=== PATIENT | female | born 1960 | race Caucasian/White ===

== ENCOUNTER → 2017-10-18 12:53 | Outpatient (CLI) | payer BC, SELFPAY ==
--- NOTE | 2017-10-18 12:57 | XR_ITS ---
DEXA SCAN.-BONE DENSITY STUDY HIPS AND LUMBAR SPINE HISTORY: Postmenopausal female postmenopausal female bilateral ovaries removed. HISTORY of fracture taking calcium and vitamin D.. Diabetes. Obesity. Hypertension. GERD. TECHNIQUE: DEXA scan hip and lumbar spine The most complete data summary and color graphic presentation of the today's ( and any prior ) DEXA findings are available in PACS. Definition and treatment guidelines included. COMPARISON: None listed LUMBAR SPINE: Normal bone density. 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 . HIPS: Femoral neck density is best predictor of hip fracture risk . Left hip demonstrates the lowest T score -0.2 with BMD1.013 g/cm sq . Right hip T score 0.1 with BMD 1.05 Averaging all regions yields today's Hip Mean T score = 0.5 with BMD1.065 g/cm sq .. IMPRESSION 1. LUMBAR SPINE: Overall normal bone density. With Normal bone density at all the vertebral body levels 2. HIPS:. Overall Normal bone density with mean T score = 0.5 Normal bone density of both right and left femoral neck WHO criteria for post-menopausal, Women: Normal: T-score at or above -1 SD Osteopenia: T-score between -1 and -2.5 SD Osteoporosis: T-score at or below -2.5 SD
== END ==
PROVIDERS: Family Provider Family Medicine; PCP Nurse Practitioner; Visit Provider Family Medicine
DX: Z78.0 Asymptomatic menopausal state (principal)
CPT/HCPCS: 77080

== ENCOUNTER → 2017-12-26 10:13 | Outpatient (POV) | payer BC, SELFPAY | PROVIDERS: Family Provider Family Medicine; PCP Nurse Practitioner; Visit Provider Dermatology | DX: Z00.00 Encounter for general adult medical examination without abnormal findings (principal) ==

== ENCOUNTER → 2018-01-02 09:05 | Outpatient (CLI) | payer BC, SELFPAY ==
--- NOTE | 2018-01-02 09:07 | MM_ITS ---
MM Dig screening mamm BI w/CAD CAD Screening COMPARISON: Digital mammograms with CAD 11/22/2016 and 11/16/2015 INDICATION: There is no personal or family history of breast cancer TECHNIQUE: Standard CC and MLO images were obtained. R2 CAD reviewed. FINDINGS: The breasts are composed primarily of fat with minimal scattered fibro glandular densities in each breast. There are stable benign-appearing nodular density upper outer quadrant right breast. There is a mole marker on each breast. There are few tiny benign-appearing calcination is in each breast. There is no suspicious lesion and there are no suspicious microcalcifications. IMPRESSION: Fatty type breast parenchyma with no suspicious lesion seen BI-RADS Category: 2 Benign Finding(s) RECOMMENDED FOLLOW-UP: 1YR - 1 YEAR FOLLOW-UP (A letter has been sent to the patient regarding results of the study.)
== END ==
PROVIDERS: Family Provider Family Medicine; PCP Family Medicine; Visit Provider Nurse Practitioner Obstetrics & Gynecology
DX: Z12.31 Encounter for screening mammogram for malignant neoplasm of breast (principal)
CPT/HCPCS: 77067

== ENCOUNTER → 2018-03-26 11:53 | Outpatient (CLI) | payer BC, SELFPAY ==
[2018-03-26 11:57] LABS: Adenovirus F 40/41, stool Not Detected (NotDetected); Astrovirus Not Detected (NotDetected); Campylobacter Not Detected (NotDetected); Clostridium Difficile A/B, PCR Not Detected (NotDetected); Cryptosporidium Not Detected (NotDetected); Cyclospora Cayetanesis Not Detected (NotDetected); Entamoeba histolytica Not Detected (NotDetected); Enteroaggregative E coli Not Detected (NotDetected); Enteropathogenic E coli Not Detected (NotDetected); Enterotoxigenic E coli Not Detected (NotDetected); Giardia lamblia Not Detected (NotDetected); Norovirus Not Detected (NotDetected); Plesimonas Shigalloides, PCR Not Detected (NotDetected); Rotavirus A Not Detected (NotDetected); Salmonella, PCR Not Detected (NotDetected); Sapovirus Not Detected (NotDetected); Shiga-like toxin E coli Not Detected (NotDetected); Shigella Enterovasive E coli Not Detected (NotDetected); Vibrio Cholerae Not Detected (NotDetected); Vibrio, PCR Not Detected (NotDetected); Yersinia Entercolitica, PCR Not Detected (NotDetected)
== END ==
PROVIDERS: PCP Nurse Practitioner; Visit Provider Nurse Practitioner
DX: R19.7 Diarrhea, unspecified (principal)
CPT/HCPCS: 87507

== ENCOUNTER → 2018-05-05 08:48 | Outpatient (CLI) | payer BC, SELFPAY ==
--- NOTE | 2018-05-05 08:54 | CT_ITS ---
CT sinus wo con CLINICAL INDICATION: ITS.REASON: CHRONIC SINUSITIS ORDERING PHYSICIAN: Jose Manuel Rae MD PATIENT AGE: 58 years COMPARISON: None TECHNIQUE:Axial images obtained with sagittal and coronal reformats. All CT scans at the facility use one or more dose reduction, viz: automated exposure control, ma/kV adjustment per patient size (including targeted exams where dose is matched to indication, i.e. head), or iterative reconstruction technique. FINDINGS: There is minimal mucosal thickening of the maxillary sinuses. No sinus air-fluid level or mass evident. Frontal, ethmoid, and sphenoid sinuses have an unremarkable appearance. No mastoid effusion. The middle ears are well aerated. Small nodes are present in the neck. The TMJs have an unremarkable appearance as do the orbits, parotid glands, and submandibular glands. No significant nasal septal deviation IMPRESSION: 1. No evidence of acute sinusitis. 2. Minimal maxillary mucosal thickening
--- NOTE | 2018-05-05 08:54 | XR_ITS ---
XR hip LT 2-3V w/pelvis HISTORY: ITS.REASON: LEFT HIP PAIN ORDERING PHYSICIAN: Jose Manuel Rae MD PATIENT AGE: 58 years COMPARISON: None FINDINGS: There are minimal osteoarthritic changes of the left hip with slight decrease in joint space medially and minimal osteophyte formation along the inferior acetabulum. No fracture or dislocation. No lytic or blastic change. There is sclerosis of the symphysis pubis suggesting osteitis pubis. IMPRESSION: 1. Minimal osteoarthritic change of the left hip. 2. Osteitis pubis
== END ==
PROVIDERS: PCP Family Medicine; Visit Provider Family Medicine
DX: J32.0 Chronic maxillary sinusitis (principal); M25.552 Pain in left hip
CPT/HCPCS: 70486; 73502

== ENCOUNTER → 2018-05-13 10:10 | Outpatient (POV) | payer BC, SELFPAY | PROVIDERS: Visit Provider Otolaryngology | DX: Z00.00 Encounter for general adult medical examination without abnormal findings (principal) ==

== ENCOUNTER → 2018-07-08 09:59 | Outpatient (POV) | payer BC, SELFPAY | PROVIDERS: Visit Provider Otolaryngology | DX: Z00.00 Encounter for general adult medical examination without abnormal findings (principal) ==

== ENCOUNTER → 2018-11-24 07:04 | Outpatient (CLI) | payer BC, SELFPAY ==
--- NOTE | 2018-11-24 07:10 | NM_ITS ---
SPECT MYOCARDIAL PERFUSION SCAN, REST AND STRESS: EXERCISE STRESS: [facility] REVIEW QGS EF AND WALL MOTION EVALUATION: QPS - PERFUSION EVALUATION: HISTORY: Chest pain, SOB, Fatigue, HTN, DM, Family history PROCEDURE: Rest imaging performed after administration of10:44 millicuries Tc MIBI. Dose administered at 7:15 a.m., with imaging thereafter. Stress imaging was then performed following6 minutes 08 seconds of exercise stress. The patient achieved a heart [id number] with projected heart rate of138 . Resting BP120/68 with stress 160/78. At maximum exercise stress,29.1 millicuries Tc MIBI administered at9:00 a.m. with [id number] minutes thereafter. FINDINGS: Perfusion Evaluation: The single slice spect images as well as the [facility] bull's-eye data summary were reviewed. Wall Motion and Ejection Fraction Evaluation: Gated SPECT review and analysis used to evaluate these features. There is a 74 % left ventricular ejection fraction. There seems to be good wall motion Uniform myocardial activity at both stress and rest IMPRESSION: No scintigraphic evidence of exercise-induced myocardial ischemia with normal ejection fraction normal wall motion
--- NOTE | 2018-11-24 07:25 | HMH.ITSHM ---
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 []OMEPRAZOLE LOSARTAN HCTZ GLIMIPIRIDE METFORMIN IDOLAC METHOCARBOMAL PRAVASTATIN DULOXETINE OZIMPIC VITAMINS
== END ==
PROVIDERS: PCP Family Medicine; Visit Provider Family Medicine
DX: R06.02 Shortness of breath (principal); Z82.49 Family history of ischemic heart disease and other diseases of the circulatory system
CPT/HCPCS: 78452; 93017; A9502

== ENCOUNTER → 2019-02-27 08:55 | Outpatient (CLI) | payer BC, SELFPAY ==
--- NOTE | 2019-02-27 08:58 | MM_ITS ---
PROCEDURE: MM DIG SCREENING MAMM BI W/CAD Patient Age:59Y CLINICAL INDICATION: routine screening mammogram No hormones but no new complaints. Patient with history of endometrial cancer 2016 Noncontributory family history. COMPARISON: [facility] DIGITAL MAMM-SCREEN BILATERAL from 09/22/2012 [facility] DIG MAMM-SCREEN TWILA from 10/14/2013 [facility] DIG MAMM-DX UNI RT ADD VIEW from 11/10/2013 [facility] DIG MAMM-SCREEN TWILA from 10/25/2014 [facility] DIG MAMM-SCREEN TWILA from 11/16/2015 [facility] DIG MAMM-SCREEN TWILA W/CAD from 11/22/2016 [facility] MM Dig screening mamm BI w/CAD from 01/02/2018 TECHNIQUE: Standard CC and MLO images were obtained. R2 CAD reviewed. FINDINGS: Lower density breast with moderate diffuse fatty replacement. Only minimal residual fibroglandular elements bilaterally But no new findings of significant concern. No dominant mass but no suspicious calcifications. Right breast. Stable small nodule lateral right breast is compatible with intramammary lymph node noting its reniform shape. It is unchanged since studies dating back to at least 2012 Left breast::. No significant new findings. Stable normal size axillary nodes IMPRESSION: Stable bilateral mammogram. Low-density breast which facilitate mammography. Bilateral follow-up 1 year recommended. BI-RAD Category: 1 Negative FOLLOW-UP: 1YR 1 Year Follow-up (A letter has been sent to the patient regarding results of the study.) Dictated by: Gene Frost MD 02/27/2019 10:57 Electronically signed by Gene Frost MD in [place] 02/27/2019 10:57
== END ==
PROVIDERS: PCP Family Medicine; Visit Provider Nurse Practitioner Obstetrics & Gynecology
DX: Z12.31 Encounter for screening mammogram for malignant neoplasm of breast (principal)
CPT/HCPCS: 77067

== ENCOUNTER → 2019-10-28 11:52 | Outpatient (CLI) | payer BC, SELFPAY | PROVIDERS: PCP Family Medicine; Visit Provider Specialist | DX: G47.33 Obstructive sleep apnea (adult) (pediatric) (principal); R53.83 Other fatigue | CPT/HCPCS: 94762 ==

== ENCOUNTER → 2019-11-27 11:04 | Outpatient (CLI) | payer BC, SELFPAY | PROVIDERS: PCP Family Medicine; Visit Provider Specialist | DX: G47.33 Obstructive sleep apnea (adult) (pediatric) (principal) | CPT/HCPCS: 94762 ==

== ENCOUNTER → 2020-02-08 09:56 | Outpatient (CLI) | payer BC, SELFPAY ==
--- NOTE | 2020-02-08 09:56 | MM_ITS ---
PROCEDURE: MM DIG SCREENING MAMM BI W/CAD Digital Breast Tomosynthesis Included CLINICAL INDICATION: screening xmg There is no personal or family history of breast cancer. COMPARISON: MG [facility] DIG MAMM-SCREEN TWILA W/CAD from 11/22/2016 MG [facility] MM Dig screening mamm BI w/CAD from 01/02/2018 MG MM DIG SCREENING MAMM BI W/CAD from 02/27/2019 TECHNIQUE: Standard CC and MLO images and 3D Tomosynthesis was obtained. R2 CAD reviewed. FINDINGS: The breasts are composed primarily of fat with minimal scattered fibroglandular densities seen throughout each breast. There is a stable benign-appearing nodular density outer quadrant right breast likely an intramammary node. There is a mole marker near the inframammary fold left breast. There is no suspicious lesion in either breast and no suspicious microcalcifications. IMPRESSION: Fatty type breast parenchyma with no suspicious lesions seen BI-RAD Category: 2 Benign Finding(s) FOLLOW-UP: 1YR 1 Year Follow-up (A letter has been sent to the patient regarding results of the study.) Dictated by: Dr. Jason Li MD 02/09/2020 08:18 Dr. Jason Li MD in [place] 02/09/2020 08:18
== END ==
PROVIDERS: PCP Family Medicine; Visit Provider Nurse Practitioner Obstetrics & Gynecology
DX: Z12.31 Encounter for screening mammogram for malignant neoplasm of breast (principal)
CPT/HCPCS: 77063; 77067

== ENCOUNTER → 2020-04-18 12:23 | Outpatient (CLI) | payer BC, SELFPAY | PROVIDERS: PCP Nurse Practitioner; Visit Provider Nurse Practitioner | DX: Z03.818 Encounter for observation for suspected exposure to other biological agents ruled out (principal) | CPT/HCPCS: U0003 ==

== ENCOUNTER → 2020-05-26 16:49 | Outpatient (CLI) | payer BC, SELFPAY ==
[2020-05-28 17:49] LABS: Covid-19 Nasal PCR Sendout Lex Not Detected
== END ==
PROVIDERS: PCP Nurse Practitioner; Visit Provider Nurse Practitioner
DX: Z03.818 Encounter for observation for suspected exposure to other biological agents ruled out (principal)
CPT/HCPCS: U0004

== ENCOUNTER → 2020-07-18 12:57 | Outpatient (CLI) | payer BC, SELFPAY ==
[2020-07-18 14:51] LABS: Basophils # 0.1 K/mm3 (0-0.2); Basophils % 1.1 % (0.1-2.0); Eosinophils # 0.2 K/mm3 (0.0-0.4); Eosinophils % 3.2 % (0.1-12.0); Hematocrit 44.8 % (37.0-47.0); Hemoglobin 14.1 g/dL (12.2-16.2); Lymphocytes # 2.7 K/mm3 (0.7-4.5); Lymphocytes % 39.7 % (10-50); Mean Corpuscular HGB Conc 31.4 g/dL (31.8-35.4); Mean Corpuscular Hemoglobin 26.3 pg (27.0-31.2); Mean Corpuscular Volume 83.7 fl (81-99); Mean Platelet Volume 7.7 fl (7.4-10.4); Monocytes # 0.6 K/mm3 (0.1-1.0); Monocytes % 8.7 % (1.7-9.3); Neutrophils # 3.2 K/mm3 (1.8-7.8); Neutrophils % 47.3 % (37.0-80.0); Platelet Count 402 K/mm3 (142-424); Red Blood Count 5.35 M/mm3 (4.20-5.40); Red Cell Distribution Width 14.3 % (11.5-17.5); White Blood Count 6.8 K/mm3 (4.8-10.8)
[2020-07-19 10:45] LABS: Covid-19 Nasal PCR Sendout P&C POSITIVE
== END ==
PROVIDERS: PCP Nurse Practitioner; Visit Provider Nurse Practitioner
DX: Z20.822 Contact with and (suspected) exposure to COVID-19 (principal); U07.1 COVID-19
CPT/HCPCS: 36415; 85025; 87275; 87276; U0004

== ENCOUNTER → 2021-02-22 13:44 | Outpatient (CLI) | payer BC, SELFPAY ==
--- NOTE | 2021-02-22 | US_ITS ---
PROCEDURE: MM DIG MAMM BI DX W/CAD Digital Breast Tomosynthesis Included Left breast ultrasound complete with axilla CLINICAL INDICATION: left breast tenderness COMPARISON: MG [facility] MM Dig screening mamm BI w/CAD from 01/02/2018 MG MM DIG SCREENING MAMM BI W/CAD from 02/27/2019 MG MM DIG SCREENING MAMM BI W/CAD from 02/08/2020 US US BREAST LT COMPLETE from 02/22/2021 TECHNIQUE: Standard CC and MLO images and 3D Tomosynthesis was obtained. R2 CAD reviewed. FINDINGS: The breasts are almost entirely fatty. No suspicious appearing mass, malignant-appearing microcalcification, architectural distortion, or skin thickening. Benign-appearing nodules present in the outer right breast consistent with a lymph node unchanged. Small benign-appearing 3 mm nodule in the left retroareolar region unchanged. Left breast ultrasound: No solid or cystic nodules are demonstrated. Small nodes are present in the axilla. IMPRESSION: Benign findings. No change with no evidence of malignancy BI-RAD Category: 2 Benign Finding FOLLOW-UP: 1 YR 1 Year Follow-up (A letter has been sent to the patient regarding results of the study.) Dictated by: Ganesh Linares MD 03/08/2021 07:33 Ganesh Linares MD in [place] 03/08/2021 07:33
== END ==
PROVIDERS: PCP Nurse Practitioner; Visit Provider Nurse Practitioner Obstetrics & Gynecology
DX: N64.4 Mastodynia (principal)
CPT/HCPCS: 76641; 77062; 77066; G0279

== ENCOUNTER → 2021-09-04 18:02 | Outpatient (CLI) | payer BC, SELFPAY | PROVIDERS: PCP Nurse Practitioner; Visit Provider Nurse Practitioner | DX: Z20.822 Contact with and (suspected) exposure to COVID-19 (principal) | CPT/HCPCS: C9803; U0003; U0005 ==

== ENCOUNTER → 2021-11-27 13:47 | Outpatient (CLI) | payer BC, SELFPAY ==
--- NOTE | 2021-11-27 13:56 | US_ITS ---
FINAL REPORT CLINICAL HISTORY: ANTERIOR CERVICAL ADENOPATHY FINDINGS: NECK SOFT TISSUE ULTRASOUND Sonographic images of the soft tissues of the neck were obtained. There are several bilateral neck nodes seen. These measure up to 1.2 cm on the right and up to 1.4 cm on the left. These nodes are partially fatty replaced and most likely represent reactive nodes. IMPRESSION: Findings most likely represent reactive nodes. Reviewed, Interpreted and Dictated by Issa Arciniega III, MD Transcribed by Diane Morales Authenticated and [facility]
== END ==
PROVIDERS: PCP Nurse Practitioner; Visit Provider Nurse Practitioner
DX: R59.0 Localized enlarged lymph nodes (principal)
CPT/HCPCS: 76536

== ENCOUNTER → 2022-01-12 18:05 | Outpatient (CLI) | payer BC, SELFPAY ==
[2022-01-12 18:34] LABS: Basophils # 0.1 K/mm3 (0-0.2); Basophils % 0.6 % (0.1-2.0); Eosinophils # 1.1 K/mm3 (0.0-0.4); Hematocrit 39.6 % (37.0-47.0); Hemoglobin 13.2 g/dL (12.2-16.2); Lymphocytes # 3.9 K/mm3 (0.7-4.5); Lymphocytes % 24.9 % (10-50); Mean Corpuscular HGB Conc 33.2 g/dL (31.8-35.4); Mean Corpuscular Volume 81.3 fl (81-99); Mean Platelet Volume 7.4 fl (7.4-10.4); Monocytes # 0.6 K/mm3 (0.1-1.0); Monocytes % 3.6 % (1.7-9.3); Neutrophils % 63.9 % (37.0-80.0); Platelet Count 445 K/mm3 (142-424); Red Blood Count 4.87 M/mm3 (4.20-5.40); Red Cell Distribution Width 13.4 % (11.5-17.5); White Blood Count 15.7 K/mm3 (4.8-10.8)
[2022-01-12 18:39] LABS: MANUAL DIFFERENTIAL MANUAL DIFFERENTIAL (MANUAL DIFF)
[2022-01-12 19:00] LABS: Eosinophils % 2 % (0-3); Lymphocytes % 32 % (10-50); Monocytes % 2 % (2-9); Neutrophils % 60 % (42-76); Platelet Estimate Slight Increase; RBC Morphology Normal; Total Cells Counted 100
== END ==
PROVIDERS: PCP Family Medicine; Visit Provider Family Medicine
DX: Z20.822 Contact with and (suspected) exposure to COVID-19 (principal); J06.9 Acute upper respiratory infection, unspecified; J02.9 Acute pharyngitis, unspecified; R05.1 Acute cough
CPT/HCPCS: 85007; 85025; C9803; U0003; U0005

== ENCOUNTER → 2022-04-18 13:31 | Outpatient (CLI) | payer BC, SELFPAY ==
[2022-04-18 18:16] LABS: Adenovirus F 40/41, stool Not Detected (NotDetected); Astrovirus Not Detected (NotDetected); Campylobacter Not Detected (NotDetected); Clostridium Difficile A/B, PCR Not Detected (NotDetected); Cryptosporidium Not Detected (NotDetected); Cyclospora Cayetanesis Not Detected (NotDetected); Entamoeba histolytica Not Detected (NotDetected); Enteroaggregative E coli Not Detected (NotDetected); Enteropathogenic E coli Not Detected (NotDetected); Enterotoxigenic E coli Not Detected (NotDetected); Giardia lamblia Not Detected (NotDetected); Norovirus Not Detected (NotDetected); Plesimonas Shigalloides, PCR Not Detected (NotDetected); Rotavirus A Not Detected (NotDetected); Salmonella, PCR Not Detected (NotDetected); Sapovirus Not Detected (NotDetected); Shiga-like toxin E coli Not Detected (NotDetected); Shigella Enterovasive E coli Not Detected (NotDetected); Vibrio Cholerae Not Detected (NotDetected); Vibrio, PCR Not Detected (NotDetected); Yersinia Entercolitica, PCR Not Detected (NotDetected)
[2022-04-18 18:39] LABS: Basophils # 0.1 K/mm3 (0-0.2); Basophils % 0.9 % (0.1-2.0); Eosinophils # 0.3 K/mm3 (0.0-0.4); Eosinophils % 2.8 % (0.1-12.0); Hematocrit 43.7 % (37.0-47.0); Hemoglobin 13.8 g/dL (12.2-16.2); Lymphocytes # 2.7 K/mm3 (0.7-4.5); Lymphocytes % 23.2 % (10-50); Mean Corpuscular HGB Conc 31.5 g/dL (31.8-35.4); Mean Corpuscular Hemoglobin 26.8 pg (27.0-31.2); Monocytes # 0.5 K/mm3 (0.1-1.0); Monocytes % 4.3 % (1.7-9.3); Neutrophils # 8.1 K/mm3 (1.8-7.8); Neutrophils % 68.7 % (37.0-80.0); Platelet Count 500 K/mm3 (142-424); Red Blood Count 5.14 M/mm3 (4.20-5.40); Red Cell Distribution Width 14.4 % (11.5-17.5); White Blood Count 11.8 K/mm3 (4.8-10.8)
[2022-04-18 19:39] LABS: Chloride 99 mmol/L (98-107)
[2022-04-18 19:40] LABS: Sodium 139 mmol/L (136-145)
[2022-04-18 19:42] LABS: Alanine Aminotransferase 33 U/L (12-78); Amylase 55 U/L (30-110); Aspartate Amino Transferase 53 U/L (14-36); Blood Urea Nitrogen 19 mg/dl (7-17); Estimated Glomerular Filt Rate 101 ml/min (>60); GFR (African American) 123 ML/MIN (>60)
[2022-04-18 19:43] LABS: Albumin Level 4.3 g/dl (3.5-5.0); Albumin/Globulin Ratio 1.3 (1.1-1.8); Alkaline Phosphatase 138 U/L (38-126); Bilirubin,Total 0.3 mg/dl (0.2-1.3); Carbon Dioxide 25 mmol/L (22.0-30.0); Chol/HDL Ratio 3.5 (1-3.5); Cholesterol 161 mg/dl (140-200); Globulin 3.2 g/dL (1.3-3.2); Glucose 93 mg/dl (74-100); HDL Cholesterol 46 mg/dl (40-60); Lipase 170 U/L (23-300); Total Protein,Serum 7.5 g/dl (6.3-8.2); Triglycerides 98 mg/dl (30-150); VLDL Cholesterol 20 mg/dL (0-40)
[2022-04-18 19:59] LABS: Direct LDL Cholesterol 88.77 mg/dL (100-129)
[2022-04-18 20:02] LABS: Hemoglobin A1C 6.8 % (4.0-6.0)
[2022-04-18 21:43] LABS: Vitamin B12 597 pg/mL (239-931)
[2022-05-09 13:38] LABS: Hep A Ab, IgM NEGATIVE; Hepatitis B Core Antibody IgM NEGATIVE; Hepatitis B Surface Antigen NEGATIVE; Hepatitis C Antibody 0.1
== END ==
PROVIDERS: PCP Nurse Practitioner; Visit Provider Nurse Practitioner
DX: R10.11 Right upper quadrant pain (principal); R19.7 Diarrhea, unspecified; E11.9 Type 2 diabetes mellitus without complications; E78.5 Hyperlipidemia, unspecified; Z79.84 Long term (current) use of oral hypoglycemic drugs; B96.29 Other Escherichia coli [E. coli] as the cause of diseases classified elsewhere
CPT/HCPCS: 80053; 80061; 80074; 82150; 82607; 83036; 83690; 84443; 85025; 86677; 87086; 87088; 87186; 87507

== ENCOUNTER → 2022-05-01 10:56 | Outpatient (CLI) | payer BC, SELFPAY ==
--- NOTE | 2022-05-01 11:07 | US_ITS ---
FINAL REPORT CLINICAL HISTORY: RUQ abdominal pain, diarrhea FINDINGS: RIGHT UPPER QUADRANT ULTRASOUND Sonographic images of the right upper quadrant were obtained. The pancreas is partially obscured. There is fatty infiltration of the liver. The gallbladder is absent. The common duct is normal. Limited images of the right kidney are normal. IMPRESSION: Fatty liver. Reviewed, Interpreted and Dictated by Jaden Sinclair MD Transcribed by Malu Augustin Authenticated and [facility]
== END ==
PROVIDERS: PCP Family Medicine; Visit Provider Nurse Practitioner
DX: R10.11 Right upper quadrant pain (principal); R19.7 Diarrhea, unspecified
CPT/HCPCS: 76705

== ENCOUNTER → 2022-05-02 10:54 | Outpatient (CLI) | payer BC, SELFPAY ==
[2022-05-02 18:33] LABS: Adenovirus,PCR Not Detected (NotDetected); Bordetella Pertussis Not Detected (NotDetected); Chlamydophila Pneumoniae, PCR Not Detected (NotDetected); Coronavirus 19, PCR Not Detected (NotDetected); Coronavirus 229E Not Detected (NotDetected); Coronavirus NL63 Not Detected (NotDetected); Coronavirus OC43 Not Detected (NotDetected); Coronovirus HKU1,PCR Not Detected (NotDetected); Human Metapneumovirus Not Detected (NotDetected); Influenza A, PCR Not Detected (NotDetected); Influenza AH1, 2009 Not Detected (NotDetected); Influenza AH1, PCR Not Detected (NotDetected); Influenza AH3,PCR Not Detected (NotDetected); Influenza B, PCR Not Detected (NotDetected); Mycoplasma Pneumoniae, PCR Not Detected (NotDetected); Parainfluenza 1, PCR Not Detected (NotDetected); Parainfluenza 2, PCR Not Detected (NotDetected); Parainfluenza 3, PCR Not Detected (NotDetected); Parainfluenza 4, PCR Not Detected (NotDetected); Respiratory Syncytial Virus Not Detected (NotDetected)
[2022-05-03 12:13] LABS: Rhinovirus/Enterovirus Detected (NotDetected)
== END ==
PROVIDERS: PCP Nurse Practitioner; Visit Provider Nurse Practitioner
DX: J06.9 Acute upper respiratory infection, unspecified (principal); B34.1 Enterovirus infection, unspecified
CPT/HCPCS: 87581; 87632; 87798; C9803; U0003; U0005

== ENCOUNTER → 2022-07-23 12:02 | Outpatient (CLI) | payer BC, SELFPAY ==
--- NOTE | 2022-07-23 12:15 | ECG_ITS ---
APPROVED REPORT Exam: Resting ECG HR:69 bpm ECG Measurements Heart Rate 69 AXES KS 190 P 55 QRSd 97 QRS 13 QT 376 T 44 QTc 395 Conclusion SINUS RHYTHM LOW QRS VOLTAGE IN PRECORDIAL LEADS [QRS DEFLECTION < 1.0 mV IN CHEST LEADS] BORDERLINE ECG UNCONFIRMED REPORT Electronically signed by : Jose Luis Gao MD 07/23/2022 19:42:24
--- NOTE | 2022-07-23 12:26 | XR_ITS ---
FINAL REPORT CLINICAL HISTORY: chest pain, palpitations x 1 week FINDINGS: Two views of the chest were obtained. The heart size and pulmonary vascularity are within normal limits. The mediastinum is normal. No acute pulmonary abnormality is identified. There is no pneumothorax. The bony thorax is intact. IMPRESSION: No active cardiopulmonary disease. Reviewed, Interpreted and Dictated by Issa Arciniega III, MD Transcribed by Gianna Patel Authenticated and . [facility]
[2022-07-23 14:10] LABS: Basophils # 0.1 K/mm3 (0-0.2); Basophils % 0.9 % (0.1-2.0); Eosinophils # 0.4 K/mm3 (0.0-0.4); Eosinophils % 3.8 % (0.1-12.0); Lymphocytes # 3.1 K/mm3 (0.7-4.5); Lymphocytes % 29.3 % (10-50); Mean Corpuscular HGB Conc 31.7 g/dL (31.8-35.4); Mean Corpuscular Hemoglobin 26.5 pg (27.0-31.2); Mean Corpuscular Volume 83.7 fl (81-99); Mean Platelet Volume 8.3 fl (7.4-10.4); Monocytes # 0.4 K/mm3 (0.1-1.0); Monocytes % 4.1 % (1.7-9.3); Neutrophils # 6.7 K/mm3 (1.8-7.8); Platelet Count 467 K/mm3 (142-424); Red Cell Distribution Width 14.3 % (11.5-17.5); White Blood Count 10.7 K/mm3 (4.8-10.8)
[2022-07-23 14:44] LABS: Alanine Aminotransferase 31 U/L (12-78); Albumin Level 4.1 g/dl (3.5-5.0); Albumin/Globulin Ratio 1.4 (1.1-1.8); Alkaline Phosphatase 114 U/L (38-126); Anion Gap 11.6 mEq/L (5-15); Aspartate Amino Transferase 34 U/L (14-36); Bilirubin,Total 0.2 mg/dl (0.2-1.3); Blood Urea Nitrogen 12 mg/dl (7-17); Calcium 9.2 mg/dl (8.4-10.2); Carbon Dioxide 28 mmol/L (22.0-30.0); Chloride 102 mmol/L (98-107); Estimated Glomerular Filt Rate 85 ml/min (>60); GFR (African American) 103 ML/MIN (>60); Glucose 114 mg/dl (74-100); Hemoglobin A1C 6.7 % (4.0-6.0); Potassium 4.6 mmoL/L (3.5-5.1); Sodium 137 mmol/L (136-145); Total Protein,Serum 7.1 g/dl (6.3-8.2)
[2022-07-23 15:00] LABS: Troponin I < 0.01 ng/ml (0.00-0.034)
[2022-07-23 15:15] LABS: Thyroid Stimulating Hormone 1.57 uIU/mL (0.465-4.68)
== END ==
PROVIDERS: PCP Nurse Practitioner; Visit Provider Nurse Practitioner
DX: R07.9 Chest pain, unspecified (principal); R00.2 Palpitations; E11.9 Type 2 diabetes mellitus without complications; Z79.84 Long term (current) use of oral hypoglycemic drugs; Z82.49 Family history of ischemic heart disease and other diseases of the circulatory system
CPT/HCPCS: 36415; 71046; 80053; 83036; 84443; 84484; 85025; 93005

== ENCOUNTER → 2022-08-27 11:00 | Outpatient (CLI) | payer BC, SELFPAY | PROVIDERS: PCP Nurse Practitioner; Visit Provider Physician Assistant | DX: R07.9 Chest pain, unspecified (principal); R00.2 Palpitations; I10 Essential (primary) hypertension; E78.5 Hyperlipidemia, unspecified; Z82.49 Family history of ischemic heart disease and other diseases of the circulatory system | CPT/HCPCS: 78452; 93017; 93306; A9502 ==

== ENCOUNTER → 2022-10-22 23:18 | Outpatient (CLI) | payer BC, SELFPAY ==
[2022-10-22 19:22] LABS: Creatinine,Urine Random 80 mg/dL (Not Estab.)
[2022-10-22 19:28] LABS: Microalbumin < 6.000 mg/L (0-16.7)
[2022-10-22 19:59] LABS: Alanine Aminotransferase 41 U/L (12-78); Albumin Level 4.1 g/dl (3.5-5.0); Albumin/Globulin Ratio 1.2 (1.1-1.8); Alkaline Phosphatase 116 U/L (38-126); Aspartate Amino Transferase 45 U/L (14-36); Bilirubin,Total 0.4 mg/dl (0.2-1.3); Blood Urea Nitrogen 14 mg/dl (7-17); Calcium 9.3 mg/dl (8.4-10.2); Carbon Dioxide 25 mmol/L (22.0-30.0); Chloride 98 mmol/L (98-107); Chol/HDL Ratio 3.2 (1-3.5); Cholesterol 141 mg/dl (140-200); Estimated Glomerular Filt Rate 85 ml/min (>60); GFR (African American) 103 ML/MIN (>60); Globulin 3.3 g/dL (1.3-3.2); Glucose 105 mg/dl (74-100); HDL Cholesterol 44 mg/dl (40-60); Potassium 4.6 mmoL/L (3.5-5.1); Total Protein,Serum 7.4 g/dl (6.3-8.2); Triglycerides 91 mg/dl (30-150); VLDL Cholesterol 18 mg/dL (0-40)
[2022-10-22 20:23] LABS: Anion Gap 18.6 mEq/L (5-15); Sodium 137 mmol/L (136-145)
[2022-10-22 20:48] LABS: Direct LDL Cholesterol 77.66 mg/dL (100-129)
[2022-10-22 21:07] LABS: Hemoglobin A1C 6.8 % (4.0-6.0)
== END ==
PROVIDERS: PCP Nurse Practitioner; Visit Provider Nurse Practitioner
DX: E11.9 Type 2 diabetes mellitus without complications (principal); E78.5 Hyperlipidemia, unspecified; Z79.84 Long term (current) use of oral hypoglycemic drugs
CPT/HCPCS: 80053; 80061; 82043; 82570; 83036

== ENCOUNTER → 2022-11-01 08:20 | Outpatient (CLI) | payer BC, SELFPAY ==
--- NOTE | 2022-11-01 08:20 | MM_ITS ---
PROCEDURE INFORMATION: Exam: MG Bilateral Screening 3D Mammography Exam date and time: 11/01/2022 8:21 AM Age: 62 years old Clinical indication: Screening examination TECHNIQUE: Imaging protocol: Bilateral Screening tomosynthesis and 2D mammography including computer-aided detection (CAD) when performed. COMPARISON: 1. MG MM DIG MAMM BI DX W/CAD 02/22/2021 1:44 PM 2. MG MM DIG SCREENING MAMM BI W/CAD 02/08/2020 10:00 AM FINDINGS: MAMMOGRAPHY: Breast composition: There are scattered areas of fibroglandular density. Mass: None. Architectural distortion: None. Calcifications: No suspicious calcifications. Asymmetric density: None. Skin thickening: None. Axillary adenopathy: None. IMPRESSION: No mammographic evidence of malignancy. Annual screening is recommended unless otherwise clinically indicated. ASSESSMENT: BI-RADS Category 1: Negative
== END ==
PROVIDERS: PCP Nurse Practitioner; Visit Provider Nurse Practitioner Obstetrics & Gynecology
DX: Z12.31 Encounter for screening mammogram for malignant neoplasm of breast (principal)
CPT/HCPCS: 77063; 77067

== ENCOUNTER 2023-01-16 07:58 | Day surgery (SDC) | payer BC, SELFPAY ==
[2023-01-04 11:43] VITALS: BMI 43.7
[2023-01-16 08:25] VITALS: BP 128/58; PULSE 79; RESP 18; TEMP 36.6; O2SAT 93
[2023-01-16 08:33] LABS: POC Glucose,Bedside 110 (70-110)
--- NOTE | 2023-01-16 08:45 | P.PNANES_ITS ---
[facility] Disclaimer: The information contained in this section may have been updated after the patient was seen, as this information can be updated by other users. Medical History Abdominal pain Abnormal electrocardiogram [ECG] [EKG] Anxiety Anxiety Chest pain Diabetes mellitus Family history of ischemic heart disease History of abdominal hernia History of colon polyps Hyperlipidemia Hypertension Mitral valve prolapse Palpitations Sleep apnea Type 2 diabetes mellitus without complications Urinary incontinence Surgical History History of cholecystectomy History of hysterectomy Family History Other Cancer Diabetes Heart attack Social History (Updated 01/16/23 @ 08:34 by Yadira Randolph RN) Smoking Status: Never smoker alcohol intake: never substance use type: denies use current occupational status: unemployed Travel in the last 8 weeks: None household members: family housing: house lives independently: No marital status: education level: college service: No caffeine: Yes special rosanna needs: No do you feel safe at home: Yes victim of physical abuse: No victim of emotional abuse: No victim of sexual abuse: No would you like helpful sources: No [facility] Anesthesia Checklist Patient Identification Patient Identification: Arm Band and Verbal (Name & ) Structural Data Admitted From: Home Planned Operative Procedure/s: colonoscopy Consent for Planned Operative Procedure(s) Verified: Yes Verified Documents: Surgical Consent NPO Status Verified Time NPO: 07:00 Anesthesia Plan Anesthesia Risk discussed: Yes ASA Class: III Anesthesia Type: IV sedation
[2023-01-16 09:27] VITALS: O2SAT 93
[2023-01-16 09:58] VITALS: BP 82/46; PULSE 74; RESP 18; TEMP 36.5; O2SAT 95
--- NOTE | 2023-01-16 09:58 | HMH.SCOPE ---
Procedure: Date: 01/16/23 Patient Date of :: 1960 Procedure Performed:: Colonoscopy Indications:: History of polyps in the past Performing Provider:: Rocael Tapia MD Referring Provider:: Carey Fairbanks APRN Sedation:: See RN notes Procedure:: After placing the patient in the left lateral decubitus position, the colonoscopy was gently inserted into the rectum and under direct visualization advanced to the cecum which was identified by transillumination in the right lower quadrant, identification of the ileocecal valve, appendiceal orifice, and cecal strap. Color, texture, mucosa, and anatomy of the colon were carefully examined with the scope. Findings:: Anal canal: normal Rectum: hemorrhoids Sigmoid colon: fair preparation Descending colon: fair preparation. Sessile polyp 6 mm in size. Removed with cold snare polypectomy. Polyp was retrieved Splenic flexure: normal Transverse colon: normal without polyps or inflammatory changes Hepatic flexure: normal Ascending colon: fair preparation Cecum: fair preparation Terminal ileum: not visualized Impression: Polyp of descending colon Fair bowel preparation Recommendations:: Await pathology results Repeat colonoscopy in 3 years Complications:: None Estimated blood obtained (mL): 0 Colonoscopy Component Colonoscopy Component Was a colonoscopy performed during today's procedure?: Yes Recommended follow up colonoscopy of at least 10 years?: Yes
[2023-01-16 10:08] VITALS: BP 103/65; PULSE 83; RESP 18; O2SAT 93
[2023-01-16 10:18] VITALS: BP 103/66; PULSE 77; RESP 18; O2SAT 97
[2023-01-16 10:55] VITALS: BP 122/65; PULSE 77; RESP 18; O2SAT 95
== END 2023-01-16 11:00 | disposition home or self-care (01) ==
PROVIDERS: PCP Nurse Practitioner; Visit Provider Internal Medicine
PROC: 0DJD8ZZ Inspection of Lower Intestinal Tract, Via Natural or Artificial Opening Endoscopic (ICD-10-PCS; CPT 45378; principal; 2023-01-16 09:30)
DX: Z12.11 Encounter for screening for malignant neoplasm of colon (principal); Z86.010 Personal history of colon polyps; D12.4 Benign neoplasm of descending colon; K64.8 Other hemorrhoids
CPT/HCPCS: 45385; 82962

== ENCOUNTER → 2023-05-27 12:00 | Outpatient (CLI) | payer BC, SELFPAY ==
[2023-05-27 17:51] LABS: Coronavirus 19, PCR Not Detected (NotDetected); Influenza A, PCR Not Detected (NotDetected); Influenza B, PCR Not Detected (NotDetected)
== END ==
PROVIDERS: PCP Nurse Practitioner; Visit Provider Nurse Practitioner
DX: R50.9 Fever, unspecified (principal); R30.0 Dysuria; B96.29 Other Escherichia coli [E. coli] as the cause of diseases classified elsewhere
CPT/HCPCS: 87086; 87636

== ENCOUNTER → 2023-05-31 19:42 | Outpatient (CLI) | payer BC, SELFPAY ==
[2023-05-31 19:51] LABS: Coronavirus 19, PCR Not Detected (NotDetected); Influenza A, PCR Not Detected (NotDetected); Influenza B, PCR Not Detected (NotDetected)
[2023-05-31 20:17] LABS: Basophils # 0.1 K/mm3 (0-0.2); Basophils % 0.6 % (0.1-2.0); Eosinophils # 0.4 K/mm3 (0.0-0.4); Eosinophils % 3.4 % (0.1-12.0); Hematocrit 39.7 % (37.0-47.0); Hemoglobin 13.2 g/dL (12.2-16.2); Mean Corpuscular HGB Conc 33.2 g/dL (31.8-35.4); Mean Corpuscular Hemoglobin 27.6 pg (27.0-31.2); Mean Corpuscular Volume 83.3 fl (81-99); Mean Platelet Volume 7.5 fl (7.4-10.4); Monocytes # 0.5 K/mm3 (0.1-1.0); Neutrophils # 7.1 K/mm3 (1.8-7.8); Platelet Count 472 K/mm3 (142-424); Red Blood Count 4.77 M/mm3 (4.20-5.40); Red Cell Distribution Width 14.1 % (11.5-17.5)
[2023-05-31 20:38] LABS: Alanine Aminotransferase 34 U/L (12-78); Albumin/Globulin Ratio 1.2 (1.1-1.8); Alkaline Phosphatase 93 U/L (38-126); Anion Gap 11.9 mEq/L (5-15); Aspartate Amino Transferase 35 U/L (14-36); Bilirubin,Total 0.2 mg/dl (0.2-1.3); Blood Urea Nitrogen 12 mg/dl (7-17); Calcium 8.8 mg/dl (8.4-10.2); Carbon Dioxide 24 mmol/L (22.0-30.0); Chloride 104 mmol/L (98-107); Estimated Glomerular Filt Rate 72 ml/min (>60); GFR (African American) 88 ML/MIN (>60); Globulin 3.3 g/dL (1.3-3.2); Glucose 124 mg/dl (74-100); Potassium 3.9 mmoL/L (3.5-5.1); Sodium 136 mmol/L (136-145); Total Protein,Serum 7.3 g/dl (6.3-8.2)
[2023-05-31 20:42] LABS: C-Reactive Protein 19.3 mg/L (0-4)
[2023-05-31 21:02] LABS: Erythrocyte Sedimentation Rate 41 mm/hr (0-30)
[2023-05-31 21:09] LABS: Thyroid Stimulating Hormone 1.85 uIU/mL (0.465-4.68)
== END ==
PROVIDERS: PCP Nurse Practitioner; Visit Provider Nurse Practitioner
DX: R50.9 Fever, unspecified (principal); R30.0 Dysuria; Z20.822 Contact with and (suspected) exposure to COVID-19; Z79.899 Other long term (current) drug therapy; R79.82 Elevated C-reactive protein (CRP)
CPT/HCPCS: 36415; 80053; 84443; 85025; 85651; 86140; 87636

== ENCOUNTER 2023-08-15 18:49 | Outpatient (CLI) | payer BC, SELFPAY ==
[2023-08-15 17:50] LABS: Influenza A, PCR Not Detected (NotDetected); Influenza B, PCR Not Detected (NotDetected)
[2023-08-15 19:26] LABS: Coronavirus 19, PCR Detected (NotDetected)
== END 2023-08-15 23:59 ==
LOC: LAB.DROPOF 18:49
PROVIDERS: PCP Nurse Practitioner; Visit Provider Nurse Practitioner
DX: J06.9 Acute upper respiratory infection, unspecified (principal); U07.1 COVID-19
CPT/HCPCS: 87636

== ENCOUNTER 2023-11-20 11:37 | Outpatient (CLI) | payer BC, SELFPAY ==
[2023-11-20 18:52] LABS: Basophils # 0.1 K/mm3 (0-0.2); Basophils % 0.9 % (0.1-2.0); Eosinophils # 0.3 K/mm3 (0.0-0.4); Eosinophils % 3.1 % (0.1-12.0); Hematocrit 44.1 % (37.0-47.0); Hemoglobin 13.9 g/dL (12.2-16.2); Lymphocytes # 2.4 K/mm3 (0.7-4.5); Lymphocytes % 24.2 % (10-50); Mean Corpuscular HGB Conc 31.5 g/dL (31.8-35.4); Mean Corpuscular Hemoglobin 27.6 pg (27.0-31.2); Mean Corpuscular Volume 87.7 fl (81-99); Mean Platelet Volume 9.6 fl (7.4-10.4); Monocytes # 0.5 K/mm3 (0.1-1.0); Monocytes % 4.9 % (1.7-9.3); Neutrophils # 6.7 K/mm3 (1.8-7.8); Neutrophils % 66.9 % (37.0-80.0); Platelet Count 443 K/mm3 (142-424); Red Blood Count 5.03 M/mm3 (4.20-5.40); Red Cell Distribution Width 14.8 % (11.5-17.5)
[2023-11-20 18:59] LABS: Alanine Aminotransferase 27 U/L (12-78); Albumin Level 3.9 g/dl (3.5-5.0); Albumin/Globulin Ratio 1.2 (1.1-1.8); Alkaline Phosphatase 113 U/L (38-126); Anion Gap 11.5 mEq/L (5-15); Aspartate Amino Transferase 30 U/L (14-36); Bilirubin,Total 0.4 mg/dl (0.2-1.3); Blood Urea Nitrogen 14 mg/dl (7-17); Calcium 9.6 mg/dl (8.4-10.2); Carbon Dioxide 29 mmol/L (22.0-30.0); Chloride 102 mmol/L (98-107); Chol/HDL Ratio 2.9 (1-3.5); Cholesterol 163 mg/dl (140-200); Estimated Glomerular Filt Rate 101 ml/min (>60); GFR (African American) 122 ML/MIN (>60); Globulin 3.3 g/dL (1.3-3.2); Glucose 123 mg/dl (74-100); HDL Cholesterol 57 mg/dl (40-60); Potassium 4.5 mmoL/L (3.5-5.1); Sodium 138 mmol/L (136-145); Total Protein,Serum 7.2 g/dl (6.3-8.2); Triglycerides 106 mg/dl (30-150); VLDL Cholesterol 21 mg/dL (0-40)
[2023-11-20 19:16] LABS: Direct LDL Cholesterol 92.44 mg/dL (100-129)
[2023-11-20 19:18] LABS: Free T4 (Free Thyroxine) 1.12 ng/dl (0.78-2.19)
[2023-11-20 19:31] LABS: Thyroid Stimulating Hormone 1.56 uIU/mL (0.465-4.68)
[2023-11-20 19:50] LABS: Vitamin B12 903 pg/mL (239-931)
[2023-11-20 20:18] LABS: Creatinine,Urine Random 49 mg/dL (Not Estab.)
[2023-11-20 20:20] LABS: Microalbumin < 6.000 mg/L (0-16.7)
[2023-11-20 21:14] LABS: 25-OH Vitamin D, Total 39.1 ng/mL (30-100)
== END 2023-11-20 23:59 | disposition home or self-care (01) ==
LOC: LAB.DROPOF 11-21 11:37
PROVIDERS: PCP Nurse Practitioner; Visit Provider Nurse Practitioner
DX: I10 Essential (primary) hypertension (principal); E11.9 Type 2 diabetes mellitus without complications; E78.5 Hyperlipidemia, unspecified; E66.9 Obesity, unspecified; Z68.41 Body mass index [BMI] 40.0-44.9, adult; Z79.84 Long term (current) use of oral hypoglycemic drugs; Z79.899 Other long term (current) drug therapy
CPT/HCPCS: 80053; 80061; 82043; 82306; 82570; 82607; 84439; 84443; 85025

== ENCOUNTER 2023-12-06 08:34 | Outpatient (CLI) | payer BC, SELFPAY ==
--- NOTE | 2023-12-06 08:34 | MM_ITS ---
PROCEDURE INFORMATION: Exam: MG Bilateral Screening 3D Mammography Exam date and time: 12/06/2023 8:26 AM Age: 63 years old Clinical indication: Screening examination TECHNIQUE: Imaging protocol: Bilateral Screening tomosynthesis and 2D mammography including computer-aided detection (CAD) when performed. COMPARISON: 1. MG MM DIG SCREENING MAMM BI W/CAD 11/01/2022 8:21 AM 2. MG MM DIG MAMM BI DX W/CAD 02/22/2021 1:44 PM FINDINGS: MAMMOGRAPHY: Breast composition: There are scattered areas of fibroglandular density. Mass: None. Architectural distortion: None. Calcifications: No suspicious calcifications. Asymmetric density: None. Skin thickening: None. Axillary adenopathy: None. IMPRESSION: No mammographic evidence of malignancy. Annual screening is recommended unless otherwise clinically indicated. ASSESSMENT: BI-RADS Category 1: Negative
== END 2023-12-06 23:59 | disposition home or self-care (01) ==
LOC: RAD 08:34
PROVIDERS: PCP Nurse Practitioner; Visit Provider Nurse Practitioner
DX: Z12.31 Encounter for screening mammogram for malignant neoplasm of breast (principal)
CPT/HCPCS: 77063; 77067

== ENCOUNTER 2024-01-09 09:32 | Outpatient (POV) | payer BC, SELFPAY | END 2024-01-09 23:59 | disposition home or self-care (01) | LOC: SC 09:32 | PROVIDERS: Visit Provider Specialist/Technologist | DX: Z00.00 Encounter for general adult medical examination without abnormal findings (principal) ==

== ENCOUNTER 2024-01-10 12:32 | Emergency (ER) | payer BC, SELFPAY ==
[2024-01-10 13:11] VITALS: BP 114/66; PULSE 72; RESP 16; TEMP 36.7; O2SAT 98; BMI 42.5
[2024-01-10 13:32] LABS: UTC Strep Screen (Rapid) Negative (Negative)
--- NOTE | 2024-01-10 13:52 | EXP.UTC ---
Discharge Plan Disposition Patient Disposition: Home, Self-Care Condition: Good Prescriptions Prescriptions: New amoxicillin 500 mg capsule 500 mg PO TID 7 Days Qty: 21 0RF No Action Xiidra 5 % dropperette 1 drp ophthalmic (eye) BID cetirizine [Allergy Relief (cetirizine)] 10 mg tablet 10 mg PO DAILY PRN azelastine 137 mcg (0.1 %) aerosol,spray 2 spray intranasal ONCE Qty: 30 3RF Rx Instructions: administer into each nostril Complete Multivitamin Tablet 1 tab PO DAILY B-complex with vitamin C Tablet 1 tab PO DAILY coenzyme Q10 50 mg capsule 50 mg PO DAILY fluticasone propionate 50 mcg/actuation spray,suspension 1 spray intranasal DAILY PRN (Reason: allergies) Rx Instructions: administer into each nostril calcium carbonate-vitamin D3 600 mg-25 mcg (1,000 unit) capsule 1 cap PO DAILY metformin 500 mg tablet extended release 24 hr 500 mg PO BID Patient Comments: TAKE 1 TABLET BY MOUTH 2 TIMES DAILY. meclizine 25 mg tablet 25 mg PO BID PRN Patient Comments: TAKE 2 TABLETS BY MOUTH TWICE DAILY NEEDED FOR DIZZINESS armodafinil 50 mg tablet 100 mg PO QAM Qty: 60 5RF Rx Instructions: Take 2 tablets by mouth every morning or 1 tablet in the morning and 1 tablet no later than 12:00 noon. Ozempic 1 mg/dose (4 mg/3 mL) pen injector SQ Patient Comments: INJECT 1 MG UNDER THE SKIN ONCE WEEKLY. hyoscyamine sulfate 0.125 mg tablet See Rx Instructions .ROUTE .COMPLEX Qty: 120 2RF Dose Instruction: Take 1 tablet by mouth four times a day As Needed for diarrhea or abdominal cramping Rx Instructions: Take 1 tablet by mouth four times a day As Needed for diarrhea or abdominal cramping omeprazole 20 mg capsule,delayed release(DR/EC) See Rx Instructions .ROUTE .COMPLEX Qty: 90 1RF Dose Instruction: Take 1 Capsule by mouth once daily. Rx Instructions: Take 1 Capsule by mouth once daily. duloxetine 60 mg capsule,delayed release(DR/EC) See Rx Instructions .ROUTE .COMPLEX Qty: 90 1RF Dose Instruction: Take 1 Capsule by mouth once daily. Rx Instructions: Take 1 Capsule by mouth once daily. methocarbamol 500 mg tablet See Rx Instructions .ROUTE .COMPLEX Qty: 90 0RF Dose Instruction: Take 1 to 2 Tablets by mouth every 6 hours as needed for muscle spasms. Rx Instructions: Take 1 to 2 Tablets by mouth every 6 hours as needed for muscle spasms. losartan-hydrochlorothiazide 100-12.5 mg tablet See Rx Instructions .ROUTE .COMPLEX Qty: 90 1RF Dose Instruction: Take 1 Tablet by mouth once daily. Rx Instructions: Take 1 Tablet by mouth once daily. pravastatin 20 mg tablet See Rx Instructions .ROUTE .COMPLEX Qty: 90 1RF Dose Instruction: Take 1 Tablet by mouth at bedtime. Rx Instructions: Take 1 Tablet by mouth at bedtime. aspirin 81 mg Tablet,Delayed Release (Dr/Ec) 81 mg PO DAILY Referrals Follow up/Referrals: Carey Fairbanks APRN [Primary Care Provider] - See instructions Activity Restrictions/Add. Instructions Additional Instructions/Restrictions: *Monitor Temp, Over the counter Motrin or Tylenol as directed/as needed Tylenol every 4 hours and Motrin every 6 hours (as long as your family doctor has told you that you can take it) for fever or pain. and straight to ER if unable to lower temp less than 101.0 after medication given *Warm salt water gargles may help to soothe the throat *Throat Lozenges? *Warm fluids like tea with honey may help to soothe the throat? *Sleep elevated *Humidifier/Vaporizer Your throat swab was sent for culture. Those results are typically sent to your primary care. Be sure to follow up in 2-3 days with your family doctor/primary care physician if no improvement so they can review those result and treat if necessary. If you don?t have a primary care doctor, I recommend you get one but in the mean time, you will have to return to a walk in clinic Follow up IMMEDIATELY for new or worsening symptoms or no Noticeable improvement over the next 48-72 hours. 911 for difficulty breathing or swallowing You were tested for today for COVID19 your test result should be back in the next 24hours, you may check your results on the [facility] Clinical Impressions Clinical Impression: Otitis media Instructions Patient Instructions: Middle Ear Infection, Amoxicillin Discharge ED [place]al [place] [facility] [place] General Stated complaint: sore throat and left ear Mode of Arrival: Ambulatory Source of Information: Patient Limitations: No Limitations Time Seen by Provider: 01/10/24 13:52 Description of Symptoms (Recalled from Triage Doc. by RN): Patient reports sore throat and left ear pain. HEENT Symptoms (Recalled from RN notes): Yes Resp Symptoms (Recalled from RN notes): No Skin Symptoms (Recalled from RN notes): No MS Symptoms (Recalled from RN notes): No Functional Status (Recalled from RN notes): wnl History of Present Illness Provider Complaint: Patient states that she has been having sore throat and pain in her left ear for several days worse since last night States today it was still bothering her so she came in to get it checked Related Data Home Medications Medication Instructions Recorded Confirmed B-complex with vitamin C 1 tab PO DAILY Supplement 02/08/20 12/25/23 multivitamin,[id number]-[id number] 1 tab PO DAILY Supplement 02/08/20 12/25/23 (Complete Multivitamin tablet) calcium carbonate 600 mg-vitamin 1 cap PO DAILY Supplement 04/18/22 12/25/23 D3 25 mcg (1,000 unit) capsule coenzyme Q10 50 mg capsule 50 mg PO DAILY Supplement 04/18/22 12/25/23 fluticasone propionate 50 1 spray intranasal DAILY PRN 04/18/22 12/25/23 mcg/actuation nasal allergies spray,suspension metformin 500 mg tablet,extended 500 mg PO BID Diabetes 08/02/22 12/25/23 release 24 hr lifitegrast 5 % eye drops in a 1 drp ophthalmic (eye) BID dry eye 10/22/22 12/25/23 dropperette (Xiidra) aspirin 81 mg tablet,delayed 81 mg PO DAILY heart health 01/04/23 12/25/23 release semaglutide 1 mg/dose (4 mg/3 mL) mg SQ 11/20/23 12/25/23 subcutaneous pen injector (Ozempic) cetirizine 10 mg tablet (Allergy 10 mg PO DAILY PRN 12/16/23 12/25/23 Relief (cetirizine)) meclizine 25 mg tablet 25 mg PO BID PRN 12/25/23 12/25/23 Previous Rx's Medication Instructions Recorded hyoscyamine sulfate 0.125 mg tablet See Rx Instructions .Route 07/30/23 .COMPLEX #120 tabs omeprazole 20 mg capsule,delayed See Rx Instructions .Route 08/12/23 release .COMPLEX #90 caps duloxetine 60 mg capsule,delayed See Rx Instructions .Route 08/27/23 release .COMPLEX #90 caps methocarbamol 500 mg tablet See Rx Instructions .Route 12/06/23 .COMPLEX #90 tabs armodafinil 50 mg tablet 100 mg (2 x 50 mg) PO QAM 12/12/23 hypersomnia in wagner #60 tabs azelastine 137 mcg (0.1 %) nasal 2 spray intranasal ONCE eutacian 12/16/23 spray tube dysfunction #30 mL losartan 100 See Rx Instructions .Route 12/18/23 mg-hydrochlorothiazide 12.5 mg .COMPLEX #90 tabs tablet pravastatin 20 mg tablet See Rx Instructions .Route 12/18/23 .COMPLEX #90 tabs amoxicillin 500 mg capsule 500 mg PO TID 7 days #21 caps 01/10/24 Allergies Allergy/AdvReac Type Severity Reaction Status Date / Time No Known Allergies Allergy Verified 12/25/23 08:31 Worker's Comp Is this a Worker's Comp case?: No [facility] Disclaimer: The information contained in this section may have been updated after the patient was seen, as this information can be updated by other users. Medical History Chronic dysfunction of left eustachian tube Otalgia, left ear Allergic rhinitis Vertigo Mitral valve prolapse Sleep apnea History of abdominal hernia Anxiety Abdominal pain Right upper quadrant pain no relation to when she eats is on daily omeprazole denies any reflux or GERD. Previous cholecystectomy. We will follow as needed. May return to office as needed. History of colon polyps Abnormal electrocardiogram [ECG] [EKG] Family history of ischemic heart disease Palpitations Chest pain Urinary incontinence Type 2 diabetes mellitus without complications Hyperlipidemia Diabetes mellitus Anxiety Hypertension Surgical History History of hysterectomy History of cholecystectomy Family History Other Cancer Diabetes Heart attack Social History Smoking Status: Never smoker alcohol intake: never substance use type: denies use current occupational status: unemployed Travel in the last 8 weeks: None household members: family housing: house lives independently: No marital status: education level: college service: No caffeine: Yes special rosanna needs: No do you feel safe at home: Yes victim of physical abuse: No victim of emotional abuse: No victim of sexual abuse: No would you like helpful sources: No ROS Obtained: Yes All systems reviewed & no additional complaints except as documented and Yes Systems reviewed as appropriate & no additional complaints except as documented Constitutional Constitutional: Reports system reviewed and no additional complaints, except as documented and Reports as per HPI ENT Ears, Nose, Mouth, and Throat: Reports system reviewed and no additional complaints, except as documented, Reports as per HPI, Reports otalgia and Reports sore throat Cardiovascular Cardiovascular: Reports system reviewed and no additional complaints, except as documented and Reports as per HPI Respiratory Respiratory: Reports system reviewed and no additional complaints, except as documented and Reports as per HPI Gastrointestinal Gastrointestingal: Reports system reviewed and no additional complaints, except as documented and as per HPI Physical Exam General General appearance: alert and in no apparent distress ENT ENT exam: Present mucous membranes moist Expanded ENT Exam TM/Canal exam: Left TM: erythema and bulging Throat exam: Present other (Pharyngeal erythema noted with PND) Respiratory Respiratory exam: Present normal lung sounds bilaterally; Absent respiratory distress or wheezes Cardiovascular Cardiovascular exam: Present regular rate, normal rhythm and normal heart sounds Neurological Exam Neurological exam: Present alert, oriented X3 and normal gait Medical Decision Making Ralph Inquiry Pt receiving controlled substance: No Ralph was queried for this patient: No Vital Signs: 01/10/24 13:11 Temperature 98.1 F Temperature Source Oral Pulse Rate [Radial] 72 Respiratory Rate 16 Blood Pressure [Right Arm] 114/66 Blood Pressure Mean [Right Arm] 82 Blood Pressure Source [Right Arm] Automatic Cuff Blood Pressure Position [Right Arm] Sitting 02 Sat by Pulse Oximetry 98 Oxygen Delivery Method Room Air Lab Data Lab results reviewed: Yes I reviewed the patient's lab results. Lab Results 01/10/24 13:22: Strep Scn Rapid Clinic Negative Orders (Tests/Meds): ORDERS Category Date Time Status Strep Screen Confirmation Stat Micro 01/10/24 13:22 Received
[2024-01-10 14:06] VITALS: BP 114/66; PULSE 72; RESP 16; TEMP 36.7; O2SAT 98
== END 2024-01-10 14:07 | disposition home or self-care (01) ==
PROVIDERS: Emergency Provider Nurse Practitioner; PCP Nurse Practitioner
DX: H66.92 Otitis media, unspecified, left ear (principal); R07.0 Pain in throat
CPT/HCPCS: 87635; 87880; 99204; 99212; G0463

== ENCOUNTER 2024-01-28 10:04 | Outpatient (RCR) | payer BC, SELFPAY ==
--- NOTE | 2024-01-28 12:57 | HMH.PTOPEV ---
PT Outpatient Evaluation Rehab PT Outpatient Evaluation Start: 01/28/24 12:43 Freq: Status: Active Protocol: Document 01/28/24 12:45 PHORNE (Rec: 01/28/24 12:57 PHORNE [id number]) E-signed By Richard Christopher, PT Outpatient Therapy Subjective History Subjective History This is the initial PT eval for Bijal Brambila, 63 yowf who presents with c/o 3-4 mos of vertigo/dizziness with sudden onset of symptoms. She reports initial episode resulted in symptoms for the entire day with significant feelings of nausea. Since that time, episodes have been much shorter duration of 30-60 secs since that time and with multiple different positions. She reports she also had testing showing L ear hearing reduction and possible L side eustachian tube dysfunction of unknown description. She now reports, My ears feel kind of full a lot of the time. New diagnosis of cancer in past 12 No months? Chief Complaint Other Level of pain today (0-10) 0 Balance Eval Gait/Posture Asssessment General Gait Observation No Deviations/Normal Nystagmus Nystagmus Presence None Timed Up and Go Test 3. Is the Timed Up and Go Test result < yes 12 seconds? Oculomotor Gaze Oculomotor Gaze Nml: Vergence Smooth Pursuit Saccades VOR Cancellation Cover/Uncover Cross Cover [place] Feet Together/Eyes open/Stable Surface pass Feet Together/Eyes Closed/Stable Surface pass Feet Together/Eyes open/Unstable Surface pass Feet Together/Eyes Closed/Unstable pass Surface Miscellaneous Dx PT Eval Objective Objective [place]-Hallpike and Horizontal roll testing performed with no nystagmus noted to either side. Pt has no symptoms with any certain position this date . Also normal occulomotor testing throughout exam and no reproducible symptoms this date. Outpatient Therapy Assessment Impairments Problems/Impairmments Impaired Balance Prognosis Rehab Potential Innapropriate for Skilled Therapy Comment Currently skilled therapy is nod indicated as pt has no reproducible vertigo symptoms at this time. Clinical Impression Consistent with Diagnosis Yes Outpatient Therapy Plan of Care Treatment Plan May Include Eval/Re-Eval Yes Frequency Times per week 0 Duration Number of Weeks 0 Addendums This patient is a candidate for social No or vocational rehab? Patient/Guardian verbally acknowledges Yes understanding of treatment program and consents to further treatment? Patient/Guardian verbally acknowledges Yes understanding of diagnosis, prognosis and goals for treatment? Eval Complexity PT Charges 64488 - High Complexity Shoulder/Elbow Eval Shoulder Objective Measurements Elbow Objective Measurements PHYSICIAN CERTIFICATION: I certify the specified therapy services for Bijal Brambila are required, authorized, and reviewed every 30 days.
== END 2024-01-28 10:05 | disposition home or self-care (01) ==
LOC: PT 10:04
PROVIDERS: Visit Provider Otolaryngology
DX: R42 Dizziness and giddiness (principal); H92.02 Otalgia, left ear; H69.92 Unspecified Eustachian tube disorder, left ear
CPT/HCPCS: 97163

== ENCOUNTER 2024-03-17 08:15 | Outpatient (CLI) | payer BC, SELFPAY ==
--- NOTE | 2024-03-17 08:49 | ECG_ITS ---
APPROVED REPORT Exam: Resting ECG HR:65 bpm ECG Measurements Heart Rate 65 AXES TX 209 P 56 QRSd 96 QRS 38 QT 390 T 61 QTc 401 Conclusion SINUS RHYTHM LOW QRS VOLTAGE IN PRECORDIAL LEADS [QRS DEFLECTION < 1.0 mV IN CHEST LEADS] BORDERLINE ECG UNCONFIRMED REPORT Electronically signed by : Jsoe Luis Gao MD 03/18/2024 07:33:57
[2024-03-18 14:14] LABS: Adrenocorticotropic Hormone 10.8 pg/mL (7.2-63.3)
[2024-03-22 18:15] LABS: Metanephrine Plasma < 25.0 pg/mL (0.0-88.0); Normetanephrine Plasma 55.4 pg/mL (0.0-285.2)
[2024-03-27 10:24] LABS: Dopamine, Plasma < 30 pg/mL (0-48); Epinephrine, Plasma < 15 pg/mL (0-62); Norepinephrine, Plasma 379 pg/mL (0-874)
== END 2024-03-17 23:59 | disposition home or self-care (01) ==
LOC: LAB 08:16
PROVIDERS: PCP Nurse Practitioner; Visit Provider Internal Medicine Endocrinology, Diabetes & Metabolism
DX: E27.9 Disorder of adrenal gland, unspecified (principal)
CPT/HCPCS: 36415; 82024; 82088; 82384; 82533; 83835; 84244; 93005

== ENCOUNTER 2024-03-23 10:14 | Outpatient (CLI) | payer BC, SELFPAY ==
[2024-03-23 20:10] LABS: Alanine Aminotransferase 38 U/L (12-78); Albumin Level 3.9 g/dl (3.5-5.0); Albumin/Globulin Ratio 1.3 (1.1-1.8); Alkaline Phosphatase 97 U/L (38-126); Anion Gap 8.3 mEq/L (5-15); Aspartate Amino Transferase 32 U/L (14-36); Bilirubin,Total 0.4 mg/dl (0.2-1.3); Blood Urea Nitrogen 11 mg/dl (7-17); Calcium 9.4 mg/dl (8.4-10.2); Carbon Dioxide 25 mmol/L (22.0-30.0); Chloride 109 mmol/L (98-107); Cholesterol 174 mg/dl (140-200); Estimated Glomerular Filt Rate 101 ml/min (>60); GFR (African American) 122 ML/MIN (>60); Globulin 3.1 g/dL (1.3-3.2); Glucose 116 mg/dl (74-100); HDL Cholesterol 43 mg/dl (40-60); Potassium 4.3 mmoL/L (3.5-5.1); Sodium 138 mmol/L (136-145); Triglycerides 139 mg/dl (30-150); VLDL Cholesterol 28 mg/dL (0-40)
[2024-03-23 20:20] LABS: Direct LDL Cholesterol 98.91 mg/dL (100-129)
[2024-03-23 20:24] LABS: Hemoglobin A1C 6.6 % (4.0-6.0)
[2024-03-23 20:27] LABS: Free T4 (Free Thyroxine) 1.16 ng/dl (0.78-2.19)
[2024-03-23 20:40] LABS: Thyroid Stimulating Hormone 1.45 uIU/mL (0.465-4.68)
== END 2024-03-23 23:59 | disposition home or self-care (01) ==
LOC: LAB.DROPOF 03-24 10:15
PROVIDERS: PCP Nurse Practitioner; Visit Provider Nurse Practitioner
DX: E11.9 Type 2 diabetes mellitus without complications (principal); Z79.85 Long-term (current) use of injectable non-insulin antidiabetic drugs; I10 Essential (primary) hypertension; Z68.41 Body mass index [BMI] 40.0-44.9, adult; E78.5 Hyperlipidemia, unspecified; E66.9 Obesity, unspecified
CPT/HCPCS: 80053; 80061; 83036; 84439; 84443

== ENCOUNTER 2024-06-15 10:39 | Outpatient (CLI) | payer BC, SELFPAY ==
[2024-06-15 18:54] LABS: Hemoglobin A1C 6.7 % (4.0-6.0)
[2024-06-15 19:17] LABS: Chol/HDL Ratio 3.5 (1-3.5); Cholesterol 156 mg/dl (140-200); HDL Cholesterol 44 mg/dl (40-60); Triglycerides 88 mg/dl (30-150); VLDL Cholesterol 18 mg/dL (0-40)
[2024-06-15 19:28] LABS: Free T4 (Free Thyroxine) 1.29 ng/dl (0.78-2.19)
[2024-06-15 19:32] LABS: C-Reactive Protein 10.5 mg/L (0-4); Direct LDL Cholesterol 99.75 mg/dL (100-129)
[2024-06-15 19:46] LABS: Thyroid Stimulating Hormone 1.39 uIU/mL (0.465-4.68)
[2024-06-15 20:17] LABS: Erythrocyte Sedimentation Rate 16 mm/hr (0-30)
== END 2024-06-15 23:59 | disposition home or self-care (01) ==
LOC: LAB.DROPOF 06-16 10:40
PROVIDERS: PCP Nurse Practitioner; Visit Provider Nurse Practitioner
DX: E78.5 Hyperlipidemia, unspecified (principal); I10 Essential (primary) hypertension; Z68.41 Body mass index [BMI] 40.0-44.9, adult; E66.9 Obesity, unspecified; E11.9 Type 2 diabetes mellitus without complications; Z79.84 Long term (current) use of oral hypoglycemic drugs; Z79.85 Long-term (current) use of injectable non-insulin antidiabetic drugs
CPT/HCPCS: 80061; 83036; 84439; 84443; 85651; 86140

== ENCOUNTER 2024-09-23 11:00 | Outpatient (CLI) | payer BC, SELFPAY ==
[2024-09-23 18:09] LABS: Basophils # 0.1 K/mm3 (0-0.2); Basophils % 0.9 % (0.1-2.0); Eosinophils # 0.3 K/mm3 (0.0-0.4); Eosinophils % 2.5 % (0.1-12.0); Hematocrit 40.9 % (37.0-47.0); Hemoglobin 12.9 g/dL (12.2-16.2); Lymphocytes # 2.8 K/mm3 (0.7-4.5); Lymphocytes % 27.6 % (10-50); Mean Corpuscular HGB Conc 31.5 g/dL (31.8-35.4); Mean Corpuscular Hemoglobin 27.2 pg (27.0-31.2); Mean Corpuscular Volume 86.1 fl (81-99); Mean Platelet Volume 10.3 fl (7.4-10.4); Monocytes # 0.6 K/mm3 (0.1-1.0); Monocytes % 5.9 % (1.7-9.3); Neutrophils # 6.3 K/mm3 (1.8-7.8); Neutrophils % 62.8 % (37.0-80.0); Platelet Count 436 K/mm3 (142-424); Red Blood Count 4.75 M/mm3 (4.20-5.40); Red Cell Distribution Width 14.6 % (11.5-17.5); White Blood Count 10.1 K/mm3 (4.8-10.8)
[2024-09-23 20:08] LABS: Creatinine,Urine Random 53 mg/dL (Not Estab.); Microalbumin < 6.000 mg/L (0-16.7)
[2024-09-23 20:16] LABS: Alanine Aminotransferase 26 U/L (12-78); Albumin Level 3.8 g/dl (3.5-5.0); Albumin/Globulin Ratio 1.2 (1.1-1.8); Alkaline Phosphatase 110 U/L (38-126); Anion Gap 13.7 mEq/L (5-15); Aspartate Amino Transferase 25 U/L (14-36); Bilirubin,Total 0.4 mg/dl (0.2-1.3); Blood Urea Nitrogen 19 mg/dl (7-17); Calcium 9.2 mg/dl (8.4-10.2); Carbon Dioxide 23 mmol/L (22.0-30.0); Chloride 105 mmol/L (98-107); Cholesterol 160 mg/dl (140-200); Estimated Glomerular Filt Rate 84 ml/min (>60); GFR (African American) 102 ML/MIN (>60); Globulin 3.1 g/dL (1.3-3.2); Glucose 106 mg/dl (74-100); HDL Cholesterol 53 mg/dl (40-60); Potassium 4.7 mmoL/L (3.5-5.1); Sodium 137 mmol/L (136-145); Total Protein,Serum 6.9 g/dl (6.3-8.2); Triglycerides 78 mg/dl (30-150); VLDL Cholesterol 16 mg/dL (0-40)
[2024-09-23 20:27] LABS: Direct LDL Cholesterol 99.29 mg/dL (100-129)
[2024-09-23 20:34] LABS: Free T4 (Free Thyroxine) 1.24 ng/dl (0.78-2.19)
[2024-09-23 20:35] LABS: 25-OH Vitamin D, Total 30.6 ng/mL (30-100)
[2024-09-23 20:47] LABS: Thyroid Stimulating Hormone 1.01 uIU/mL (0.465-4.68)
[2024-09-23 21:06] LABS: Vitamin B12 489 pg/mL (239-931)
[2024-09-23 21:38] LABS: Hemoglobin A1C 6.3 % (4.0-6.0)
== END 2024-09-23 23:59 | disposition home or self-care (01) ==
LOC: LAB.DROPOF 09-24 09:09
PROVIDERS: PCP Nurse Practitioner; Visit Provider Nurse Practitioner
DX: E78.5 Hyperlipidemia, unspecified (principal); E11.9 Type 2 diabetes mellitus without complications; I10 Essential (primary) hypertension
CPT/HCPCS: 80053; 80061; 82043; 82306; 82570; 82607; 83036; 84439; 84443; 85025

== ENCOUNTER 2024-10-26 07:59 | Outpatient (CLI) | payer BC, SELFPAY ==
--- OUTSIDE RECORDS SUMMARY | 2024-10-26 08:02 | XMS_ITS ---
Author Organization Unknown Medications Medication Instructions Effective Dates (start - stop) Status 3 ML semaglutide 1.34 MG/ML Pen Injector [Ozempic] [id number]:00:00.000+00 :00 - Completed 3 ML semaglutide 1.34 MG/ML Pen Injector [Ozempic] [id number]:00:00.000+00 :00 - Completed 0.25 MG, 0.5 MG Dose 1.5 ML semaglutide 1.34 MG/ML Pen Injector [Ozempic] [id number]:00:00.000+00 :00 - Completed pravastatin sodium 20 MG Oral Tablet [id number]:00:00.000+00 :00 - Completed pravastatin sodium 20 MG Oral Tablet 9492-39-98P02:00:00.000+00 :00 - Completed 3 ML semaglutide 1.34 MG/ML Pen Injector [Ozempic] [id number]:00:00.000+00 :00 - Completed pravastatin sodium 20 MG Oral Tablet 5877-10-75O16:00:00.000+00 :00 - Completed 0.25 MG, 0.5 MG Dose 1.5 ML semaglutide 1.34 MG/ML Pen Injector [Ozempic] [id number]:00:00.000+00 :00 - Completed pravastatin sodium 20 MG Oral Tablet [id number]:00:00.000+00 :00 - Completed pravastatin sodium 20 MG Oral Tablet [id number]:00:00.000+00 :00 - Completed 3 ML semaglutide 1.34 MG/ML Pen Injector [Ozempic] [id number]:00:00.000+00 :00 - Completed 0.25 MG, 0.5 MG Dose 1.5 ML semaglutide 1.34 MG/ML Pen Injector [Ozempic] [id number]:00:00.000+00 :00 - Completed pravastatin sodium 20 MG Oral Tablet 0800-40-87U38:00:00.000+00 :00 - Completed 0.25 MG, 0.5 MG Dose 1.5 ML semaglutide 1.34 MG/ML Pen Injector [Ozempic] [id number]:00:00.000+00 :00 - Completed pravastatin sodium 20 MG Oral Tablet 9779-75-01L15:00:00.000+00 :00 - Completed 0.25 MG, 0.5 MG Dose 1.5 ML semaglutide 1.34 MG/ML Pen Injector [Ozempic] [id number]:00:00.000+00 :00 - Completed 0.25 MG, 0.5 MG Dose 1.5 ML semaglutide 1.34 MG/ML Pen Injector [Ozempic] [id number]:00:00.000+00 :00 - Completed 0.25 MG, 0.5 MG Dose 1.5 ML semaglutide 1.34 MG/ML Pen Injector [Ozempic] [id number]:00:00.000+00 :00 - Completed metformin hydrochloride 500 MG Oral Tablet 0872-74-16O42:00:00.000+00 :00 - Completed duloxetine 60 MG Delayed Rel ease Oral Capsule 6882-94-94V53:00:00.000+00 :00 - Completed methocarbamol 500 MG Oral Tablet 1727-33-81Y03:00:00.000+00 :00 - Completed lifitegrast 50 MG/ML Ophthal pranay Solution [Xiidra] [id number]:00:00.000+00 :00 - Completed duloxetine 60 MG Delayed Rel ease Oral Capsule [id number]:00:00.000+00 :00 - Completed duloxetine 60 MG Delayed Rel ease Oral Capsule 5614-21-15D23:00:00.000+00 :00 - Completed [id number] 200 ACTUAT albuter ol 0.09 MG/ACTUAT Metered Dose Inhaler 1890-47-86V01:00:00.000 +00 :00 - Completed duloxetine 60 MG Delayed Rel ease Oral Capsule [id number]:00:00.000+00 :00 - Completed lifitegrast 50 MG/ML Ophthal pranay Solution [Xiidra] 8616-13-85M13:00:00.000+00 :00 - Completed methocarbamol 500 MG Oral Tablet 3579-56-53C70:00:00.000+00 :00 - Completed 24 HR metformin hydrochlorid e 500 MG Extended Release Oral Tablet [id number]:00:00.000+0 0 :00 - Completed duloxetine 60 MG Delayed Rel ease Oral Capsule 9039-20-52U64:00:00.000+00 :00 - Completed omeprazole 20 MG Delayed Rel ease Oral Capsule 8783-06-86D25:00:00.000+00 :00 - Completed duloxetine 60 MG Delayed Rel ease Oral Capsule [id number]:00:00.000+00 :00 - Completed omeprazole 20 MG Delayed Rel ease Oral Capsule 2971-12-56O77:00:00.000+00 :00 - Completed 24 HR metformin hydrochlorid e 500 MG Extended Release Oral Tablet 2581-17-65V85:00:00.000+0 0 :00 - Completed duloxetine 60 MG Delayed Rel ease Oral Capsule 9540-50-69E88:00:00.000+00 :00 - Completed duloxetine 60 MG Delayed Rel ease Oral Capsule 3867-89-00M76:00:00.000+00 :00 - Completed 24 HR metformin hydrochlorid e 500 MG Extended Release Oral Tablet 4125-02-18C92:00:00.000+0 0 :00 - Completed omeprazole 20 MG Delayed Rel ease Oral Capsule 1879-51-10P40:00:00.000+00 :00 - Completed metformin hydrochloride 500 MG Oral Tablet 1297-01-23X71:00:00.000+00 :00 - Completed duloxetine 60 MG Delayed Rel ease Oral Capsule 4040-40-19V06:00:00.000+00 :00 - Completed metformin hydrochloride 500 MG Oral Tablet 0368-51-54Z79:00:00.000+00 :00 - Completed pravastatin sodium 20 MG Oral Tablet 8745-34-39J36:00:00.000+00 :00 - Completed benzonatate 200 MG Oral Capsule 5664-33-62X76:00:00.000+00 :00 - Completed methocarbamol 500 MG Oral Tablet 3422-93-69G11:00:00.000+00 :00 - Completed 24 HR oxybutynin chloride 5 MG Extended Release Oral Tablet 9197-78-34G30:00:00.000+0 0 :00 - Completed {21 (methylprednisolone 4 MG Oral Tablet) } Pack [id number]:00:00.000+00 :00 - Completed cefdinir 300 MG Oral Capsule 08-27-12:00:00.000+00 :00 - Completed 24 HR oxybutynin chloride 5 MG Extended Release Oral Tablet [id number]:00:00.000+0 0 :00 - Completed ciprofloxacin 500 MG Oral Tablet 7977-84-18Y76:00:00.000+00 :00 - Completed 24 HR oxybutynin chloride 5 MG Extended Release Oral Tablet 3557-20-32O68:00:00.000+0 0 :00 - Completed - 3304-04-27S01:00 :00.000+00 :00 - Completed hyoscyamine sulfate 0.125 MG Oral Tablet 9190-10-77D01:00:00.000+00 :00 - Completed hyoscyamine sulfate 0.125 MG Oral Tablet 7594-25-84N74:00:00.000+00 :00 - Completed {21 (methylprednisolone 4 MG Oral Tablet) } Pack [id number]:00:00.000+00 :00 - Completed hyoscyamine sulfate 0.125 MG Oral Tablet [id number]:00:00.000+00 :00 - Completed {6 (azithromycin 250 MG Oral Tablet) } Pack [id number]:00:00.000+00 :00 - Completed hyoscyamine sulfate 0.125 MG Oral Tablet 3308-35-96S99:00:00.000+00 :00 - Completed hydrochlorothiazide 12.5 MG / losartan potassium 100 MG Oral Tablet 4514-48-74O55:00:00.000+00 :00 - Completed hydrochlorothiazide 12.5 MG / losartan potassium 100 MG Oral Tablet [id number]:00:00.+00 :00 - Completed hydrochlorothiazide 12.5 MG / losartan potassium 100 MG Oral Tablet 8219-29-32E34::00.+00 :00 - Completed hydrochlorothiazide 12.5 MG / losartan potassium 100 MG Oral Tablet 2973-02-39P58::.+00 :00 - Completed hydrochlorothiazide 12.5 MG / losartan potassium 100 MG Oral Tablet [id number]::00.000+00 :00 - Completed hydrochlorothiazide 12.5 MG / losartan potassium 100 MG Oral Tablet [id number]::00.+00 :00 - Completed hydrochlorothiazide 12.5 MG / losartan potassium 100 MG Oral Tablet 0313-11-42Q98:00:00.+00 :00 - Completed Patient Care team information Name Category Status Period Participants - - Proposed period not known -
[2024-10-27 12:21] LABS: Adrenocorticotropic Hormone 28.7 pg/mL (7.2-63.3)
== END 2024-10-26 23:59 | disposition home or self-care (01) ==
LOC: LAB 08:00
PROVIDERS: PCP Nurse Practitioner; Visit Provider Internal Medicine Endocrinology, Diabetes & Metabolism
DX: E27.9 Disorder of adrenal gland, unspecified (principal)
CPT/HCPCS: 36415; 82024; 82088; 82384; 82533; 83835; 84244

== ENCOUNTER 2024-11-12 15:18 | Outpatient (CLI) | payer BC, SELFPAY ==
[2024-11-12 15:45] LABS: Blood Urea Nitrogen 17 mg/dl (7-17); Estimated Glomerular Filt Rate 63 ml/min (>60); GFR (African American) 76 ML/MIN (>60)
--- NOTE | 2024-11-12 16:15 | MR_ITS ---
PROCEDURE INFORMATION: Exam: MR Head Without and With Contrast Exam date and time: 11/12/2024 4:33 PM Age: 64 years old Clinical indication: Other: Left sided pain; Additional info: Left sided head and ear pain, off balance TECHNIQUE: Imaging protocol: Magnetic resonance imaging of the head without and with contrast. Contrast material: ISOVUE; Contrast volume: 23 ml; Contrast route: IV; COMPARISON: CT - SINUSWO CT sinus wo con 05/05/2018 10:16 AM FINDINGS: Brain: Normal. No acute infarct. No hemorrhage. No significant white matter disease. No edema. Cerebral ventricles: Normal. No ventriculomegaly. Bones: Unremarkable. Paranasal sinuses: Normal as visualized. No acute sinusitis. Mastoid air cells: Normal as visualized. No mastoid effusion. Orbital cavities: The patient is post bilateral cataract surgery. Soft tissues: Unremarkable. IMPRESSION: No acute intracranial process.
[2024-11-12] MEDS: GADOTERIDOL INJ 10ML SYRINGE 3 ML IV (17:13)
[2024-11-12] MEDS: GADOTERIDOL INJ 20ML SYRINGE 20 ML IV (17:13)
== END 2024-11-12 23:59 | disposition home or self-care (01) ==
PROVIDERS: PCP Nurse Practitioner; Visit Provider Nurse Practitioner
DX: H91.90 Unspecified hearing loss, unspecified ear (principal); H92.02 Otalgia, left ear; R51.9 Headache, unspecified; R26.89 Other abnormalities of gait and mobility
CPT/HCPCS: 36415; 70553; 82565; 84520; A9576

== ENCOUNTER 2024-12-14 10:55 | Outpatient (CLI) | payer BC, SELFPAY ==
--- OUTSIDE RECORDS SUMMARY | 2024-12-14 08:45 | XMS_ITS | Encounter Summary ---
Author Organization [facility] Address [address] [place] [address] Care Team Providers Care Ham Smoker Name Role Phone Israel Rosado MD Primary Care Provider [phone] Reason for Visit * Reason Comments Injections Encounter Details Date Type Department Care Team (Latest Contact Info) Description 12/14/2024 8:45 AM EDT Office Visit [facility] [address] [place] [address] Gigi Dee APRN [address] [place] [address] Primary osteoarthritis of right knee (Primary Dx) Social History Tobacco Use Types Packs/Day Years Used Date Smoking Tobacco: Never Smokeless Tobacco: Never Alcohol Use Standard Drinks/Week Comments No 0 (1 standard drink = 0.6 oz pur e alcohol) Comments No Sex and Gender Information Value Date Recorded Sex Assigned at Not on file Legal Sex Female 6:04 AM EDT Gender Identity Not on file Sexual Orientation Not on file documented as of this encounter Progress Notes * Karely Mir, Paper Wrapping Machine Operator - 12/14/2024 8:45 AM EDTAssociated Order(s): Large Joint Injection/Arthrocentesis: R knee Large Joint Injection/Arthrocentesis: R knee on 12/14/2024 8:45 AM Indications: pain Details: 22 G needle, anterolateral approach Medications: 40 mg triamcinolone acetonide 40 mg/mL; 2 mL BUPivacaine HCl 0.5 % (5 mg/mL) Outcome: tolerated well, no immediate complications Procedure, treatment alternatives, risks and benefits explained, specific risks discussed. Consent was given by the patient. Immediately prior to procedure a time out was called to verify the correctpatient, procedure, equipment, support team member and site/side marked as required. Patient was prepped and draped in the usual sterile fashion. documented in this encounter Plan of Treatment Not on file documented as of this encounter Procedures Procedure Name Priority Date/Time Associated Diagnosis Comments OR ARTHROCENTESIS ASPIR&/INJ MAJOR JT/BURSA W/O US Routine 12/14/2024 8:45 AM EDT Primary osteoarthritis of right knee documented in this encounter Results * [place] ARTHROCENTESIS ASPIR&/INJ MAJOR JT/BURSA W/O US (12/14/2024 8:45 AM EDT) Narrative [facility] - 12/14/2024 8:45 AM EDT Karely Mir Athletic Trainer 12/14/2024 8:56 AM Large Joint Injection/Arthrocentesis: R knee on 12/14/2024 8:45 AM Indications: pain Details: 22 G needle, anterolateral approach Medications: 40 mg triamcinolone acetonide 40 mg/mL; 2 mL BUPivacaine HCl 0.5 % (5 mg/mL) Outcome: tolerated well, no immediate complications Procedure, treatment alternatives, risks and benefits explained, specific risks discussed. Consent was given by the patient. Immediately prior to procedure a time out was called to verify the correct patient, procedure, equipment, support team member and site/side marked as required. Patient was prepped and draped in the usual sterile fashion. Gigi Dee APRN PROCEDURE/MINOR SURGICAL O RDERABLES Final Result [facility] documented in this encounter Visit Diagnoses Diagnosis Primary osteoarthritis of right knee- Primary Primary localized osteoarthrosis, lower leg documented in this encounter Administered Medications Inactive Administered Medications - up to 1 most recent administrations Medication Order MAR Action Action Date Dose Rate Site BUPivacaine HCl (MARCAINE/SENSORCAINE) 0.5 % (5 mg/mL) injection 2 mL 2 mL, Intra-articular, ONCE PRN, 1 dose, Starting on Sat12/14/24 at 0845, Until Sat12/14/24 at 0845, Dx: 1. Primary osteoarthritis of right kneeIndications:Primary osteoarthritis of right knee Given 12/14/2024 8:45 AM EDT 2 mL Right Knee triamcinolone acetonide (KENALOG-40) injection 40 mg 40 mg, Intra-articular, ONCE PRN, 1 dose, Starting on Sat12/14/24 at 0845, Until Sat12/14/24 at 0845, Dx: 1. Primary osteoarthritis of right kneeIndications:Primary osteoarthritis of right knee Given 12/14/2024 8:45 AM EDT 40 mg Right Knee documented in this encounter Care Teams Ham Smoker Relationship Specialty Start Date End Date Israel Rosado MD [address] [facility] [address] [place] [address] PCP - General 02/14/11 documented as of this encounter
[2024-12-14 18:42] LABS: Basophils # 0.1 K/mm3 (0-0.2); Basophils % 0.8 % (0.1-2.0); Eosinophils # 0.4 Kmm3 (0.0-0.4); Eosinophils % 2.5 % (0.1-12.0); Hemoglobin 12.9 g/dL (12.2-16.2); Immature Granulocytes # 0.06 10^3uL; Immature Granulocytes % 0.4 %; Lymphocytes # 2.8 K/mm3 (0.7-4.5); Lymphocytes % 20.4 % (10-50); Mean Corpuscular HGB Conc 32.3 g/dL (31.8-35.4); Mean Corpuscular Hemoglobin 27.9 pg (27.0-31.2); Mean Corpuscular Volume 86.4 fl (81-99); Mean Platelet Volume 10.4 fl (7.4-10.4); Monocytes # 0.9 K/mm3 (0.1-1.0); Monocytes % 6.2 % (1.7-9.3); Neutrophils # 9.6 K/mm3 (1.8-7.8); Neutrophils % 69.7 % (37.0-80.0); Nucleated Red Blood Cells # 0 10^3/uL; Nucleated Red Blood Cells % 0 %; Platelet Count 460 K/mm3 (142-424); Red Blood Count 4.63 M/mm3 (4.20-5.40); Red Cell Distribution Width 13.6 % (11.5-17.5); White Blood Count 13.8 K/mm3 (4.8-10.8)
[2024-12-14 19:10] LABS: Hemoglobin A1C 7.3 % (4.0-6.0)
[2024-12-14 19:23] LABS: Albumin Level 3.9 g/dl (3.5-5.0); Chloride 103 mmol/L (98-107); Potassium 4.3 mmoL/L (3.5-5.1); Sodium 137 mmol/L (136-145)
[2024-12-14 19:25] LABS: Alanine Aminotransferase 23 U/L (12-78); Aspartate Amino Transferase 22 U/L (14-36); Blood Urea Nitrogen 14 mg/dl (7-17); Estimated Glomerular Filt Rate 84 ml/min (>60); GFR (African American) 102 ML/MIN (>60)
[2024-12-14 19:26] LABS: Albumin/Globulin Ratio 1.2 (1.1-1.8); Alkaline Phosphatase 106 U/L (38-126); Anion Gap 15.3 mEq/L (5-15); Bilirubin,Total 0.2 mg/dl (0.2-1.3); Calcium 9.2 mg/dl (8.4-10.2); Carbon Dioxide 23 mmol/L (22.0-30.0); Creatine Kinase 88 U/L (30-135); Globulin 3.2 g/dL (1.3-3.2); Glucose 104 mg/dl (74-100); Magnesium 2.1 mg/dl (1.6-2.3); Phosphorous 3.1 mg/dl (2.5-4.5); Total Protein,Serum 7.1 g/dl (6.3-8.2)
[2024-12-14 19:37] LABS: 25-OH Vitamin D, Total 33.5 ng/mL (30-100)
[2024-12-14 19:57] LABS: Thyroid Stimulating Hormone 1.11 uIU/mL (0.465-4.68)
--- OUTSIDE RECORDS SUMMARY | 2024-12-16 11:11 | XMS_ITS | Clinical Summary ---
Author Organization [facility] Address [address] [facility] [address] [place] [address] Phone Care Team Providers Care Body Stylist Name Role Phone Blanca Cote Conditions or Problems Problem Name Problem Code Onset Date Status Entry Date Provider Comment Standard Description Annotate ENCOUNTER FOR OTHER SPECIFIED SURGICAL AFTERCARE Z48.89 (ICD-10-CM) Active Mary Griffin MD Encounter for other specified surgical aftercare CARPAL TUNNEL SYNDROME, LEFT UPPER LIMB G56.02 (ICD-10-CM) Active Landen Josep Carpal tunnel syndrome, left upper limb CARPAL TUNNEL SYNDROME, RIGHT 12879277 (SNOMED CT) Active Landen Josep Carpal tunnel syndrome OVERWEIGHT 672415937 (SNOMED CT) Active Bijal Armas MA Overweight CARPAL TUNNEL SYNDROME 78816656 (SNOMED CT) Active Mary Griffin MD Carpal tunnel syndrome OBESE 564533486 (SNOMED CT) Active Mary Griffin MD Obesity Medications Medication Instructions Start Date Stop Date Generic Name NDC Provider METHOCARBAMOL 500 MG TABS 4 METHOCARBAMOL [id number] Mary Griffin MD CONTRAVE 8-90 MG [id number] 4 NALTREXONE-BUPRO PION HCL [id number] Mary Griffin MD CLOTRIMAZOLE-BETA METHASONE 1-0.05 % CREA 4 CLOTRIMAZOLE-BET AMETHASONE [id number] Mary Griffin MD AMOXICILLIN-POT CLAVULANATE 875-125 MG TABS 4 AMOXICILLIN-POT CLAVULANATE 55241749501 Mary Griffin MD PRAVASTATIN SODIUM 20 MG TABS 8 PRAVASTATIN SODIUM 23168116179 Mary Griffin MD OMEPRAZOLE 20 MG CPDR 8 OMEPRAZOLE 43980167324 Mary Griffin MD METFORMIN HCL 500 MG TABS 8 METFORMIN HCL 77518292899 Mary Griffin MD LOSARTAN POTASSIUM-HCTZ 100-12.5 MG TABS 8 LOSARTAN POTASSIUM-HCTZ 85790332674 Mary Griffin MD GLIMEPIRIDE 2 MG TABS 8 GLIMEPIRIDE 97906965071 Mary Griffin MD DULOXETINE HCL 30 MG CPEP 8 DULOXETINE HCL 79438295653 Mary Griffin MD DEXAMETHASONE 0.5 MG TABS 2 DEXAMETHASONE 53160830549 Mary Griffin MD CEFUROXIME AXETIL 500 MG TABS 3 CEFUROXIME AXETIL [id number] Mary Griffin MD Medications Administered No information available. Allergies, Adverse Reactions, Alerts Observed no known allergies at Results No information available. Plan of Care Type Date Detail Pending order Renal function p jama with BUN Pending order EKG Patient education weight%20manag ement Patient education obesity Patient education obesity Patient education carpal%20tunne l%20syndrome Patient education obesity Patient education obesity Patient education carpal%20tunne l%20syndrome Patient education obesity Patient education obesity Patient education carpal%20tunne l%20syndrome Procedures No information available. Vital Signs Date Name Value Unit Description BMI (Body Mass Index) 47.20 kg/m2 Bod y Mass Index (Ratio) Height 64 [in_us] height E&M Weight Measured 275 [lb_av] weight E& M Weight Measured 275 [lb_av] weight E& M BP Diastolic 70 mm[Hg] blood pressu re, diastolic BP Systolic 123 mm[Hg] blood pressur e, systolic Body Temperature 98.9 [degF] temperat ure E&M Heart Rate 67 /min pulse rate Respiratory Rate 16 /min respirat ory rate E&M Immunizations No information available. Advance Directives No information available.
--- OUTSIDE RECORDS SUMMARY | 2024-12-16 11:11 | XMS_ITS | Clinical Summary ---
Author Organization [employer] [facility] Address [address] [place] [address] Phone Care Team Providers Care Outside Physical Damage Appraiser Name Role Phone Unavailable Unavailable Conditions or Problems No information available. Medications No information available. Medications Administered No information available. Allergies, Adverse Reactions, Alerts No information available. Results No information available. Plan of Care No information available. Procedures No information available. Vital Signs No information available. Immunizations No information available. Advance Directives No information available.
--- OUTSIDE RECORDS SUMMARY | 2024-12-16 11:13 | XMS_ITS | Encounter Summary ---
Author Organization [facility] Address [address] [place] [address] Care Team Providers Care Grain Drier Operator Name Role Phone Albert Rosado MD Primary Care Provider [phone] Dhaval Acuña DO Unavailable [phone] Reason for Visit * Reason Comments Medications Refill Encounter Details Date Type Department Care Team (Late st Contact Info) Description 12/16/2020 Refill [facility] - [facility], [place] [address] [place] [address] [address] [place] [phone] Dhaval Acuña, DO [address] [facility] [place] [address] Medications Refill Social History Tobacco Use Types Packs/Day Years Used Date Smoking Tobacco: Never Smokeless Tobacco: Never Alcohol Use Standard Drinks/Week Comments No 0 (1 standard drink = 0.6 oz pur e alcohol) Comments No Sex and Gender Information Value Date Recorded Sex Assigned at Not on file Legal Sex Female 3:24 PM EST Gender Identity Not on file Sexual Orientation Not on file documented as of this encounter Miscellaneous Notes * Telephone Encounter - Harshad Yanez LPN - 12/21/2020 3:29 PM EDT Last Office Visit:Oct 04 Next Office Visit:Visit date not found documented in this encounter Plan of Treatment Upcoming Encounters Date Type Department Care Team (Late st Contact Info) Description 02/15/2025 1:30 PM EDT Appointment [facility], [place] [address] [facility] [address] [place] [address] Dhaval Acuña, [address] [facility] [address] [place], [place] [phone] documented as of this encounter Visit Diagnoses Diagnosis Controlled type 2 diabetes mellitus without complication, unspecified whether intermodal customer service insulin use documented in this encounter Care Teams Grain Drier Operator Relationship Specialty Start Date End Date Albert Rosado MD [address] [facility] [address] [place] [address] PCP - General 08/17/08 Dhaval Acuña, [address] [facility] [address] [place], [place] [id number] Endocrinology/Diabetes/[place] bolism 06/05/21 documented as of this encounter
--- OUTSIDE RECORDS SUMMARY | 2024-12-16 11:13 | XMS_ITS | Encounter Summary ---
Author Organization [facility] Address [address] [place] [address] Care Team Providers Care Scraper Operator Name Role Phone Albert Rosado MD Primary Care Provider [phone] Dhaval Acuña DO Unavailable [phone] Reason for Visit * Reason Onset Date Comments Other 08/16/2023 Encounter Details Date Type Department Care Team (Late st Contact Info) Description 08/16/2023 Telephone [facility] - [facility], [place] [address] [place] [address] Dhaval Acuña, DO [address] [facility] [place] [address] Other Social History Tobacco Use Types Packs/Day Years [...] encounter Miscellaneous Notes * Telephone Encounter - Marcela Rosado - 08/16/2023 2:29 PM EST PT CALLING TO [facility] APPT FOR SATURDAY; HAS BEEN DIAGNOSED WITH COVID. WOULD LIKE TO KNOW IF HER AND HERHUSBAND CAN BE WORKED INTO THE SCHEDULE IN A WEEK OR SO. WOULD LIKE A CALL BACK TO DISCUSS. documented in this encounter Plan of Treatment Upcoming Encounters Date Type Department Care Team (Late st Contact Info) Description 02/15/2025 1:30 PM EDT Appointment [facility], [place] [address] [facility] [address] [place] [address] Dhaval Acuña, [address] [facility] [address] [place] [address] documented as of this encounter Visit Diagnoses Not on filedocumented in this encounter Care Teams Scraper Operator Relationship Specialty Start Date End Date Albert Rosado MD [address] [facility] [address] [place] [address] PCP - General 08/17/08 Dhaval Acuña, [address] [facility] [address] [place] [address] Endocrinology/Diabetes/[place] bolism 06/05/21 documented as of this encounter
--- OUTSIDE RECORDS SUMMARY | 2024-12-16 11:13 | XMS_ITS | Clinical Summary ---
Author Organization [facility] Address [address] [place] [address] Phone Care Team Providers Care Counter Helper Name Role Phone Israel Rosado MD Primary Care Provider [phone] Allergies No known active allergies Medications omeprazole (PRILOSEC) 20 mg Take 20 mg by mouth daily. Active rosuvastatin (CRESTOR) 10 mg tablet Take 10 mg by mouth daily. Active cycloSPORINE (RESTASIS) 0.05 % ophthalmic emulsion Place into both eyes every 12 hours. Active cholecalciferol , vitamin D3, 400 unit Oral Tablet Take 1 Tab by mouth daily. Active fish oil omega-3 fatty acids 300-1,000 mg Oral Capsule Take 2 g by mouth daily. Active DULoxetine (CYMBALTA) 30 mg Oral Capsule, Delayed Release(E.C.) Take 30 mg by mouth daily. Active losartan-hydroc hlorothiazide (HYZAAR) 100-12.5 mg Oral Tablet Take 1 Tab by mouth daily. Active MULTI-VITAMIN ORAL Take by mouth daily. Active Coenzyme Q10 (CO Q-10) 10 mg Oral Capsule Take by mouth daily. Active hydrocortisone (ANUSOL-HC) [address] rectally every 6 hours as needed for Hemorrhoids. Active acetaminophen (TYLENOL) Oral Tab Take by mouth every 4 hours as needed for Pain. Active ibuprofen (ADVIL;MOTRIN) 200 mg Oral Tablet Take 200 mg by mouth every 8 hours as needed for Pain. Active methocarbamol (ROBAXIN) 500 mg Oral Tablet Take 500 mg by mouth 2 times daily. Active metFORMIN (GLUCOPHAGE) 500 mg Oral Tablet Take by mouth 2 times daily. Active glimepiride (AMARYL) 2 mg Oral Tablet Take 2 mg by mouth daily. Active hyoscyamine (LEVBID) 0.375 mg Oral Tablet Sustained Release 12 hr Take 0.375 mg by mouth every 12 hours as needed for Cramping. Active pravastatin (PRAVACHOL) 20 mg Oral Tablet Take 20 mg by mouth daily. Active fUROsemide (LASIX) 20 mg Oral Tablet Take by mouth every 12 hours. Active ciprofloxacin HCl (CIPRO) 500 mg Oral Tablet Take by mouth every 12 hours. Active lisinopriL (PRINIVIL;ZESTR IL) 10 mg Oral Tablet Take 10 mg by mouth daily. Active semaglutide (OZEMPIC) 0.25 mg or 0.5 mg(2 mg/1.5 mL) SubQ Pen Injector Subcutaneous (Inject under the skin) 0.5 mg once a week. Active Hospital, Clinic, or Other Facility Administered Medication Ordered Dose Route Frequency Start Date End Date Status triamcinolone acetonide (KENALOG-40) injection 40 mgIndications:Primary osteoarthritis of right knee 40 mg IAtc ONCE PRN 12/14/2024 12/14/2024 Ended BUPivacaine HCl (MARCAINE/SENSORCAINE) 0.5 % (5 mg/mL) injection 2 mLIndications:Primary osteoarthritis of right knee 2 mL IAtc ONCE PRN 12/14/2024 12/14/2024 Ended Active Problems Problem Noted Date Diagnosed Date Pain in both knees 09/18/2024 Incisional hernia, without obstruction or gangre ne 01/24/2018 Encounters Date Type Department Care Team Description 12/14/2024 8:45 AM EDT Office Visit [address] [address] Gigi Dee APRN Primary osteoarthritis of right knee (Primary Dx) 09/25/2024 9:00 AM EDT Office Visit [address] [address] Lloyd Gil PA-C Primary osteoarthritis of left knee (Primary Dx) 09/18/2024 9:15 AM EDT Ancillary Procedure [address] [place] [address] Arnav Murcia MD Pain in both knees, unspecified chronicity 09/18/2024 9:00 [place] [address] Lloyd Gil PA-C Primary osteoarthritis of both knees (Primary Dx); Pain in both knees, unspecified chronicity 09/18/2024 8:45 [place] [address] Arnav Murcia MD Pain in both knees, unspecified chronicity from Last 3 Months Surgical History Surgery Date Site/Laterality Comments ADRENALECTOMY on 2007 TONSILLECTOMY 06/24/1965 - 06/23/1966 COLONOSCOPY LAPAROSCOPY UPPER GASTROINTESTINAL ENDOSCOPY CHOLECYSTECTOMY, LAPAROSCOPIC 07/01/2014 N/A LAPAROSCOPIC CHOLECYSTECTOMY LYSIS OF ADHESIONS; Surgeon: Zhen Strickland MD; Location: [facility]; Service: General HYSTERECTOMY 06/24/2014 - 06/23/2015 CARPAL TUNNEL RELEASE VENTRAL HERNIA REPAIR 01/23/2018 N/A OPEN INCISIONAL VENTRAL HERNIA REPAIR WITH ONLAY MESH; Surgeon: Zhen Strickland MD; Location: [facility]; Service: General Medical devices from this surgery are in the Medical Devices section. CATARACT EXTRACTION EXTRACAPSULAR W/ INTRAOCULAR LENS IMPLANTATION 01/01/[address] Yola Heath CATARACT EXTRACTION W/ INTRAOCULAR LENS IMPLANT 01/15/[address] Stacey Heath Medical History Medical History Date Comments Hypertension Adrenal gland disease Hyperlipidemia MVP (mitral valve prolapse) Heartburn Ulcer Postoperative nausea and vomiting Motion sickness Sleep apnea uses cpap. set a t 13 Diabetes mellitus (HCC) Urinary incontinence yoni Cancer (HCC) endometrial. sta ge 1- hysterectomy Family History Medical History Relation Name Comments Diabetes Father Other Mother Relation Name Status Comments Father Mother Social History Tobacco Use Types Packs/Day Years Used Date Smoking Tobacco: Never Smokeless Tobacco: Never Tobacco Cessation:Counseling Given: Not Answered Alcohol Use Standard Drinks/Week Comments No 0 (1 standard drink = 0.6 oz pur e alcohol) Comments No Sex and Gender Information Value Date Recorded Sex Assigned at Not on file Legal Sex Female 6:04 AM EDT Gender Identity Not on file Sexual Orientation Not on file Obstetrics History Last Filed Vital Signs Vital Sign Reading Time Taken Comments Blood Pressure 118/60 02/12/2018 9:26 AM EDT Pulse 78 02/12/2018 9:26 AM EDT Temperature 36.7 C (98 F) 02/12/2018 9:26 AM EDT Respiratory Rate 18 02/12/2018 9:26 AM EDT Oxygen Saturation 97% 01/27/2018 8:09 AM EDT Inhaled Oxygen Concentration - - Weight 113.4 kg (250 lb) 09/25/2024 8:58 AM EDT Height 162.6 cm (5' 4 ) 09/25/2024 8:58 AM EDT Body Mass Index 42.91 09/25/2024 8:58 AM EDT Plan of Treatment Health Maintenance Due Date Last Done Comments Annual Wellness Exam 02/09/1963 Hepatitis C Screening 02/09/1978 Cervical Cancer Screening 02/09/1981 Pap Smear 02/09/1981 HPV/Pap Cotest 02/09/1990 Breast Cancer Screening 2000 Cologuard 02/09/2005 Colon Cancer Screening 02/09/2005 Colonoscopy 02/09/2005 FIT 02/09/2005 Sigmoidoscopy 02/09/2005 Virtual Colonography 02/09/2005 Pneumococcal Vaccine 50+ (1 of 1 - PCV) 02/09/2010 RSV or 60+ (1 - Risk 60-74 years 1-dose series) 2020 Zoster (2 of 2) 11/20/2021 09/25/2021 DTaP/TDaP/Td (3 - Td or Tdap) 11/09/2026 11/09/2016, 04/03/2011, 07/17/2006, Additional history exists Hepatitis B Vaccine Completed 01/15/2005, 11/20/1991, 05/15/1991, Additional history exists Influenza Vaccine Completed 05/05/2024, , 04/04/2021 COVID-19 Vaccine Completed 07/08/2024, , 02/12/2022, Additional history exists Meningococcal B Vaccine Aged Out No l onger eligible based on patient's age to complete this topic Medical Devices Implanted Type Area Foreign Languages Professor Device Identifier Shelf Expiration Date Model / Serial / Lot Mesh Srg Prln 6x4in Hrn Ptch Sft Flt Strl Pp - [id number] Implanted:Qty: 1 on 01/23/2018 by Zhen Strickland MD at [facility] N/A: Abdomen CR BARD:DAVOL 04/20/2022 [id number] / / [id number] Procedures Procedure Name Priority Date/Time Associated Diagnosis Comments DC ARTHROCENTESIS ASPIR&/INJ MAJOR JT/BURSA W/O US Routine 12/14/2024 8:45 AM EDT Primary osteoarthritis of right knee DC ARTHROCENTESIS ASPIR&/INJ MAJOR JT/BURSA W/O US Routine 09/25/2024 9:00 AM EDT Primary osteoarthritis of left knee XR PELVIS Routine 09/18/2024 9:03 AM EDT Pain in both knees, unspecified chronicity DC ARTHROCENTESIS ASPIR&/INJ MAJOR JT/BURSA W/O US Routine 09/18/2024 9:00 AM EDT Pain in both knees, unspecified chronicity Primary osteoarthritis of both knees XR KNEE BILATERAL AP LATERAL AND SUNRISE STANDING Routine 09/18/2024 8:59 AM EDT Pain in both knees, unspecified chronicity from Last 3 Months Results * DC ARTHROCENTESIS ASPIR&/INJ MAJOR JT/BURSA W/O US (12/14/2024 8:45 AM EDT) Narrative ORTHOCINCY - 12/14/2024 8:45 AM EDT Karely Mir Recording Artist 12/14/2024 8:56 AM Large Joint Injection/Arthrocentesis: R [...] to verify the correct patient, procedure, equipment, network and threat support specialist and site/side marked as required. Patient was prepped and draped in the usual sterile fashion. Gigi Deanamaria a PRODUCTION ASSEMBLY OPERATOR PROCEDURE/MINOR SURGICAL O RDERABLES Final Result ORTHOALLYSSA * DC ARTHROCENTESIS ASPIR&/INJ MAJOR JT/BURSA W/O US (09/25/2024 9:00 AM EDT) Narrative ORTHOCINCY - 09/25/2024 9:00 AM EDT Lloyd Gil PA-C 09/25/2024 10:23 AM Large Joint Injection/Arthrocentesis: L knee on 09/25/2024 9:00 AM Indications: pain Details: 22 G needle, anterolateral approach Medications: 40 mg triamcinolone acetonide 40 mg/mL; 2 mL BUPivacaine HCl 0.25 % (2.5 mg/mL) Outcome: tolerated well, no immediate complications Procedure, treatment alternatives, risks and benefits explained, specific risks discussed. Consent was given by the patient. Immediately prior to procedure a time out was called to verify the correct patient, procedure, equipment, network and threat support specialist and site/side marked as required. Patient was prepped and draped in the usual sterile fashion. Lloyd Gil PA-C PROCEDURE/MINOR SURGICAL OR DERABLES Final Result [facility] * XR PELVIS (09/18/2024 9:03 AM EDT) Narrative Carlos Nicole - 09/18/2024 9:03 AM EDT Please see physician's note from office encounter for x-ray imaging result Arnav Murcia MD IMG DIAGNOSTIC IMAGING ORDER COLEMAN Final Result * DC ARTHROCENTESIS ASPIR&/INJ MAJOR JT/BURSA W/O US (09/18/2024 9:00 AM EDT) Narrative ORTHOCINCY - 09/18/2024 9:00 AM EDT Lloyd Gil PA-C 10/15/2024 8:02 AM Large Joint Injection/Arthrocentesis: R knee on 09/18/2024 9:00 AM Indications: pain Details: 22 G needle, anterolateral approach Medications: 40 mg triamcinolone acetonide 40 mg/mL; 2 mL BUPivacaine HCl 0.25 % (2.5 mg/mL) Outcome: tolerated well, no immediate complications Procedure, treatment alternatives, risks and benefits explained, specific risks discussed. Consent was given by the patient. Immediately prior to procedure a time out was called to verify the correct patient, procedure, equipment, network and threat support specialist and site/side marked as required. Patient was prepped and draped in the usual sterile fashion. us Lloyd Gil PA-C PROCEDURE/MINOR SURGICAL OR DERABLES Final Result ORTHOCINCY * XR KNEE BILATERAL AP LATERAL AND SUNRISE STANDING (09/18/2024 8:59 AM EDT) Narrative Genericuser, Audit - 09/18/2024 9:00 AM EDT Please see physician's note from office encounter for x-ray imaging result Arnav Murcia MD IMG DIAGNOSTIC IMAGING ORDER COLEMAN Final Result from Last 3 Months Insurance HUGH PPO HUGH PPO ANTHEM PPO ANTHEM PPO Advance Directives For more information, please contact: [phone] * Full Code (Latest Code Status on File) Date Activated Date Inactivated Comments 01/25/2018 2:27 PM 01/27/2018 3:56 PM Care Teams Counter Helper Relationship Specialty Start Date End Date Israel Rosado MD [address] [place] [id number] PCP - General 02/14/11
--- OUTSIDE RECORDS SUMMARY | 2024-12-16 11:13 | XMS_ITS | Encounter Summary ---
Author Organization [facility] Address [address] [place] [address] Care Team Providers Care Crown Wheel Assembler Name Role Phone Albert Rosado MD Primary Care Provider [phone] Dhaval Acuña DO Unavailable [phone] Reason for Visit * Reason Onset Date Comments Results 10/29/2024 Encounter Details Date Type Department Care Team (Late st Contact Info) Description 10/29/2024 Telephone [facility], [address] [place] [address] Dhaval Acuña, 1954 [facility] [place] [address] Results Social History Tobacco Use Types Packs/Day Years [...] encounter Miscellaneous Notes * Telephone Encounter - Letitia Mcdonnell MA - 11/09/2024 10:25 AM EDT Spoke with patient gave results * Telephone Encounter - Dhaval Acuña DO - 11/09/2024 10:01 AM EDT All labs back now. No concerns. She had a very slightly elevated cortisol, but this doesn't mean there is an issue at this level. We will watch this, but in general all adrenal labs are ok. Will follow up at future visit for more lab orders, etc, nothing needed now. * Telephone Encounter - Vanita Urban - 11/09/2024 8:17 AM EDT RECEIVED LAB RESULTS FROM [facility] VIA FAX IMPORTED AND ATTACHED * Telephone Encounter - Dhaval Acuña, - 11/06/2024 11:36 AM EDT Vinicio normal. Still waiting on renin. * Telephone Encounter - Vanita Urban - 11/06/2024 9:36 AM EDT RECEIVED LAB RESULTS FROM [facility] VIA FAX IMPORTED AND ATTACHED * Telephone Encounter - Dhaval Acuña, - 11/05/2024 12:50 PM EDT These results are good. I think now we are just waiting on vinicio/renin results and then can call pt. * Telephone Encounter - Vanita Urban - 11/05/2024 8:06 AM EDT RECEIVED LAB RESULTS FROM [facility] VIA FAX IMPORTED AND ATTACHED * Telephone Encounter - Dhaval Acuña, - 11/02/2024 11:54 AM EDT Reviewed, these are normal. There should still be a couple of more coming in, then we can call her. * Telephone Encounter - Vanita Urban - 11/02/2024 7:41 AM EDT RECEIVED LAB RESULTS FROM [facility] VIA FAX IMPORTED AND ATTACHED * Telephone Encounter - Dhaval Acuña DO - 10/29/2024 12:43 PM EDT Labs reviewed, will probably be more coming in. Will wait until all received. * Telephone Encounter - Vanita Urban - 10/29/2024 7:18 AM EDT RECEIVED LAB RESULTS FROM [facility] VIA FAX IMPORTED AND ATTACHED documented in this encounter Plan of Treatment Upcoming Encounters Date Type Department Care Team (Late st Contact Info) Description 02/15/2025 1:30 PM EDT Appointment [facility], [place] [address] [facility] [address] [place] [id number] Dhaval Acuña, DO [address] [facility] [place] [address] documented as of this encounter Visit Diagnoses Not on filedocumented in this encounter Care Teams Crown Wheel Assembler Relationship Specialty Start Date End Date Albert Rosado MD [address] [place] [address] [place] [address] PCP - General 08/17/08 Dhaval Acuña, DO [address] [place] [address] Endocrinology/Diabetes/[place] bolism 06/05/21 documented as of this encounter
--- OUTSIDE RECORDS SUMMARY | 2024-12-16 11:13 | XMS_ITS | Clinical Summary ---
Author Organization [facility] Address [address] [place] [address] Care Team Providers Care Marine Diesel Technician Name Role Phone Unavailable Primary Care Provider Unavailabl e Allergies No known active allergies Medications omeprazole (PriLOSEC) [address] capsule Take 20 mg by mouth 1 (one) time each day. Active losartan-hydroC HLOROthiazide (Hyzaar) 100-12.5 MG tablet Take 1 tablet by mouth 1 (one) time each day. Active metFORMIN (Glucophage) 500 MG tablet 1 tab(s) orally 2 times a day Active methocarbamol (Robaxin) 500 MG tablet Take 500 mg by mouth twice a day. Active Multiple Minerals-Vitami ns (CALCIUM-MAGNES IUM-ZINC-D3 PO) Acti ve [place] 3 1000 MG capsule Take 2 g by mouth 1 (one) time each day. Active pravastatin (Pravachol) 20 MG tablet 1 tab(s) orally once a day Active Ozempic, 0.25 or 0.5 MG/DOSE, 2 MG/1.5ML solution pen-injector inj. pen INJECT 0.5 MG UNDER THE SKIN ONCE WEEKLY SUBCUTANEOUSLY ONCE A WEEK FOR 28 DAYS 10/29/19 22 Active Xiidra 5 % solution INSTILL ONE DROP IN EACH EYE TWICE DAILY 04/14/20 21 Active ibuprofen 200 MG tablet Take 200 mg by mouth every 8 (eight) hours if needed. Active hyoscyamine ER (Levbid) 0.375 MG 12 hr tablet Take 0.375 mg by mouth every 12 (twelve) hours if needed. Active hydrocortisone (Anusol-HC) 25 MG suppository Insert into the rectum every 6 (six) hours if needed. Active etodolac (Lodine) 400 MG tablet Active estradiol (Estrace) 0.1 MG/GM vaginal creamIndication s:Vaginal atrophy USE 1 APPLICATORFUL VAGINALLY ONCE DAILY DIRECTED BY PHYSICIAN. 02/16/20 21 Active DULoxetine (Cymbalta) [address] capsule Take 60 mg by mouth 1 (one) time each day. 10/17/19 22 Active coenzyme Q-10 10 MG capsule Take by mouth 1 (one) time each day. Active acetaminophen (Tylenol) 325 MG tablet Take by mouth every 4 (four) hours if needed. Active Calcium 600-200 MG-UNIT tablet 1 tab(s) orally 2 times a day Active Multiple Vitamins-Minera ls (MULTIVITAMIN ADULT EXTRA C PO) Take by mouth. Activ e oxybutynin XL (Ditropan-XL) 5 MG 24 hr tabletIndicatio ns:Urgency incontinence,Ur gency-frequency syndrome Take 1 tablet (5 mg total) by mouth 1 (one) time each day. Do not crush, chew, or split. 30 tablet 2 01/20/20 22 Active Active Problems Patient Care Coordination No te Formatting of this note migh t be different from the original. 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 Incontinence of feces 11/10/2021 Family History Medical History Relation Name Comments Conversions - Other Maternal Grandmother cancer of female genital organ Diabetes Mother Relation Name Status Comments Maternal Grandmother Mother Social History Tobacco Use Types Packs/Day Years Used Date Smoking Tobacco: Never Smokeless Tobacco: Never Alcohol Use Standard Drinks/Week Comments Never 0 (1 standard drink = 0.6 oz pur e alcohol) Comments No Sex and Gender Information Value Date Recorded Sex Assigned at Not on file Legal Sex Female 6:06 PM EDT Gender Identity Not on file Sexual Orientation Not on file Last Filed Vital Signs Vital Sign Reading Time Taken Comments Blood Pressure 112/72 01/19/2022 8:56 AM EDT Pulse - - Temperature - - Respiratory Rate - - Oxygen Saturation - - Inhaled Oxygen Concentration - - Weight 119 kg (262 lb 5.6 oz) 01/19/2022 8:56 AM EDT Height 162.6 cm (5' 4 ) 01/19/2022 8:56 AM EDT Body Mass Index 45.03 01/19/2022 8:56 AM EDT Plan of Treatment Health Maintenance Due Date Last Done Comments [facility]-Depression Screening 1960 [facility]-HIV Screening 1960 [facility]-Hepatitis C Screening 1960 [facility]-/Child/Adol SDOH Screenings 1960 [facility]-Obesity Intervention 02/09/1966 [facility]- SDOH Screenings 02/09/1978 [facility]-Adult SDOH Screenings 02/09/1978 CT Colonography 02/09/2005 Colonoscopy 02/09/2005 FIT-DNA 02/09/2005 FIT 02/09/2005 FOBT 02/09/2005 Sigmoidoscopy 02/09/2005 [facility]-Colorectal Cancer Screening 02/09/2005 [facility]-Breast Cancer Screening 02/09/2010 [facility]-Pneumococcal Vaccine: 50+ Years (1 of 1 - PCV) 02/09/2010 [facility]-RSV Vaccine: 60+ Years or (1 - Risk 60-74 years 1-dose series) 2020 [facility]-Zoster Vaccines (2 of 2) 11/20/2021 09/25/2021 [id number] Vaccine ( - season) 2024 02/12/2022, 04/25/2021, 08/10/2020, Additional history exists [facility]-Influenza Vaccine (Season Ended) 2025 04/04/2021, 04/28/2002, 04/28/2001 [facility]-DTaP,Tdap,and Td Vaccines (3 - Td or Tdap) 11/09/2026 11/09/2016, 04/03/2011, 07/17/2006, Additional history exists HPV Vaccines Aged Out No longer eligi ble based on patient's age to complete this topic [facility]-HIB Vaccines Aged Out No longer e ligible based on patient's age to complete this topic [facility]-Hepatitis A Vaccines Aged Out No longer eligible based on patient's age to complete this topic [facility]-IPV Vaccines Aged Out No longer e ligible based on patient's age to complete this topic [facility]-Rotavirus Vaccines Aged Out No lo nger eligible based on patient's age to complete this topic Insurance ANTH
--- OUTSIDE RECORDS SUMMARY | 2024-12-16 11:13 | XMS_ITS | Clinical Summary ---
Author Organization [facility] Address [address] [place] [address] Care Team Providers Care Passenger Interline Clerk Name Role Phone Albert Rosado MD Primary Care Provider [phone] Dhaval Acuña DO Unavailable [phone] Allergies No known active allergies Medications acetaminophen (TYLENOL) 325 mg tablet Take by mouth. Activ e cholecalciferol (VITAMIN D-3) 400 unit Tablet Take by mouth. Active Coenzyme Q10 10 mg Capsule Take by mouth. Acti ve DULoxetine (CYMBALTA) 30 mg Capsule, Delayed Release(E.C.) Take 30 mg by mouth. Active Fish Oil-Harper-3 Fatty Acids 300-1,000 mg Capsule Take 2 g by mouth. Active losartan-hydroch lorothiazide (HYZAAR) 100-12.5 mg Tablet Take by mouth. Activ e MULTIVITAMIN (MULTIPLE VITAMIN PO) Take by mouth. Act maria guadalupe omeprazole (PRILOSEC) 20 mg capsule Take 20 mg by mouth. Active pravastatin (PRAVACHOL) 10 mg tablet Take 10 mg by mouth nightly at bedtime. Active hyoscyamine (LEVBID) 0.375 mg CR tablet 8 Active lifitegrast (XIIDRA) 5 % Dropperette Apply to eyes 2 times daily. Active Armodafinil 50 mg Tablet Take 2 Each by mouth daily. 4 Active OTHER - SEE EPIC ADMIN INSTRUCTIONS Take 1 Tablet by mouth daily. Hypothalmex Dietary Supplement Active OTHER - SEE EPIC ADMIN INSTRUCTIONS Take 1 Capsule by mouth daily. AD Complex Active OTHER - SEE EPIC ADMIN INSTRUCTIONS Take 1-2 Capsules by mouth daily (with dinner). Zymex Active OTHER - SEE EPIC ADMIN INSTRUCTIONS Take 1 Capsule by mouth daily. Advanced Balance Support Active amLODIPine (NORVASC) 5 mg tablet Take 5 mg by mouth daily. 4 Active Dexcom G7 Personal Banking Advisor USE DIRECTED 4 Active losartan (COZAAR) 100 mg Tablet Take 100 mg by mouth daily. 4 Active Xdemvy 0.25 % Drops INSTILL 1 DROP INTO AFFECTED EYES BY OPTHALMIC ROUTE TWICE DAILY 4 Active lisinopriL (ZESTRIL) 5 mg tablet Take 5 mg by mouth 2 times daily. Active hydroCHLOROthiaz cristobal (MICROZIDE) 12.5 mg capsule Take 12.5 mg by mouth daily. Active Dexcom G7 Sensor 5 Active methocarbamoL (ROBAXIN) 500 mg tablet TAKE 1 TO 2 TABLETS BY MOUTH EVERY 6 HOURS NEEDED FOR MUSCLE SPASMS. 5 Active semaglutide (Ozempic) 0.25 mg or 0.5 mg (2 mg/3 mL) Pen InjectorIndicati ons:Controlled type 2 diabetes mellitus without complication, unspecified whether detention insulin use 0.5 mg by Subcutaneous route once weekly. 3 mL 5 5 Active metFORMIN (GLUCOPHAGE-XR) 500 mg XR tabletIndication s:Controlled type 2 diabetes mellitus without complication, unspecified whether termite technician insulin use Take 1 Tablet by mouth 2 times daily. 180 Tablet 1 5 Active Active Problems Problem Noted Date Diagnosed Date Adrenal abnormality ([facility]) 10/16/2023 Encounters Date Type Department Care Team Description 11/03/2024 Refill [facility] Diabetes [facility] Endocrine [place], [place] [address] [facility] [address] [place] [address] Dhaval Acuña, DO Medications Refill 10/29/2024 Telephone [facility]ocrine [place], [address] [address] Dhaval Acuña, DO Results 10/14/2024 2:30 PM EDT Office Visit [facility] [place] [address] [facility] [address] [facility] [phone] Dhaval Acuña, Controlled type 2 diabetes mellitus without complication, unspecified whether detention insulin use (Primary Dx); Adrenal abnormality ([facility] HCC); Morbid obesity ([facility] HCC); Hypertension, unspecified type from Last 3 Months Social History Tobacco Use Types Packs/Day Years [...] Sign Reading Time Taken Comments Blood Pressure 110/58 10/14/2024 2:25 PM EDT Pulse - - Temperature - - Respiratory Rate - - Oxygen Saturation - - Inhaled Oxygen Concentration - - Weight 111.6 kg (246 lb) 10/14/2024 2:25 PM EDT Height 162.6 cm (5' 4 ) 10/14/2024 2:25 PM EDT Body Mass Index 42.23 10/14/2024 2:25 PM EDT Plan of Treatment Upcoming Encounters Date Type Department Care Team (Late st Contact Info) Description 02/15/2025 1:30 PM EDT Appointment [facility] Diabetes [facility] Endocrine [place], [place] [address] [facility] [address] [facility] [id number] Dhaval Acuña, [address] [facility] [address] [facility] [place] [id number] Health Maintenance Due Date Last Done Comments Cologuard 1960 Colonoscopy 1960 Colorectal Cancer Screening 1960 Diabetes Mellitus Foot Care (Yearly) 1960 FIT 1960 Hepatitis C Virus (HCV) Screening 02/09/1981 Breast Cancer Screening 02/09/2010 Pneumococcal Vaccine: 50+ Ye ars (1 of 1 - PCV) 02/09/2010 RSV Vaccines (1 - Risk 60-74 years 1-dose series) 2020 Zoster-RZV(Shingrix) (2 of 2) 11/20/2021 09/25/2021 Diabetes Mellitus Microalbum in (Yearly) 05/07/2024 05/07/2023, 09/10/2022, 09/05/2018 Lipid Monitoring 05/07/2024 05/07/2023, 09/05/2018 Renal Monitoring 05/07/2024 05/07/2023, 07/2018, 09/05/2018, Additional history exists BMI Counseling 06/24/2024 Depression Screening 06/24/2024 Diabetes A1c Monitoring 04/15/2025 10/15/19, 06/02/2024, 02/18/2024, Additional history exists Diabetes Mellitus Eye Exam (Yearly) 05/28/2025 05/28/2024, 05/28/2024, 09/27/2022 Tetanus Vaccination (Every 1 0 Years) 11/09/2026 11/09/2016, 04/03/2011 Lipid Screening Discontinued 05/07/2023, 09/05/2018 Influenza Vaccination (Yearly) Discontinued 1 07/05/2023, 04/19/2023, 04/04/2021, Additional history exists Influenza Vaccination Completed 05/05/2024 , 04/19/2023, 04/04/2021, Additional history exists COVID-19 Vaccine Completed 07/08/2024, , 02/12/2022, Additional history exists Diabetes Mellitus Hemoglobin A1c (Yearly) Discontinued 10/14/2024, 06/02/2024, 02/18/2024, Additional history exists Procedures Procedure Name Priority Date/Time Associated Diagnosis Comments POCT AMB DCA HEMOGLOBIN A1C Routine 10/14/2024 2:46 PM EDT Controlled type 2 diabetes mellitus without complication, unspecified whether detention insulin use AMB REFERRAL TO OPHTHALMOLOGY Routine 05/28/2024 3:40 PM EST COMPREHENSIVE METABOLIC PANEL Routine 05/07/2023 8:45 AM EST Controlled type 2 diabetes mellitus without complication, unspecified whether termite technician insulin use ([facility]) LIPID PROFILE Routine 05/07/2023 8:45 AM EST Controlled type 2 diabetes mellitus without complication, unspecified whether detention insulin use ([facility] HCC) ALBUMIN, URINE CREATININE/RATIO Routine 05/07/2023 8:45 AM EST Controlled type 2 diabetes mellitus without complication, unspecified whether termite technician insulin use ([facility]) from Last 3 Months or Most Recently Relevant to Health Maintenance Results * (ABNORMAL) POCT AMB DCA HEMOGLOBIN A1C (10/14/2024 2:46 PM EDT) Hgb A1C 6.3(A) 4.0 - 5.6 % 10/14/2024 2:46 PM EDT us Dhaval Acuña DO AMB POINT OF CARE Final Resul t * AMB REFERRAL TO OPHTHALMOLOGY (05/28/2024 3:40 PM EST) us Dhaval Acuña DO OUTPATIENT REFERRAL ORDERABLE S Final Result * ALBUMIN, URINE CREATININE/RATIO (05/07/2023 8:45 AM EST) Creatinine, Ur 45.7 20.0 - 310.0 mg/dL [facility] Alb, Ur 0.50 mg/dL [facility] CONTINUOUS DRYOUT OPERATOR HELPER AL [facility] Alb Creat Ratio 11 0 - 30 mg/g creat [facility] Comment: Category Result (mg/ g Creat) Normal to mildly increased <30 Moderately increased 30-299 Severly increased >300 Due to variability in urinary albumin excretion, at least two of three test results measured within a 6-month period should show elevated levels before a patient is designated as having albuminuria. Urine 05/07/2023 8:45 AM EST 05/07/2023 3:27 PM EST us Dhaval Acuña DO URINE ORDERABLES Final Result [facility] [address] [place], [place] [address] [place] * LIPID PROFILE (05/07/2023 8:45 AM EST) Cholesterol 148 125 - 199 mg/dL [facility] Comment: TOTAL CHOLESTEROL INTERPRETATION: Less than 200 mg/dL Desireable 200-239 mg/dL Borderline Greater or Equal to 240 mg/dL High LDL Calculated 80 0 - 100 mg/dL [facility] Comment: LDL CHOLESTEROL INTERPRETATION: Less than 100 mg/dL Optimal 100-129 mg/dL Near optimal/above optimal 130-159 mg/dL Borderline High 160-189 mg/dL High Greater or Equal to 190 mg/dL Very High HDL 44 40 - 180 mg/dL [facility] Comment: HDL CHOLESTEROL INTERPRETATION: Less than 40 mg/dL Low Greater than 60 mg/dL Desirable Triglycerides 120 0 - 149 mg/dL [facility] Comment: TOTAL TRIGLYCERIDE INTERPRETATION: Less than 150 mg/dL Normal 150-199 mg/dL Borderline HIgh 200-499 mg/dL High Greater or Equal to 500 mg/dL Very High NONHDL Calculated 104 0 - 129 mg/dL [facility] Comment: NON-HDL INTERPRETATION: Less than 130 mg/dL Desirable 130-159 mg/dL Above Desirable 160-189 mg/dL Borderline High 190-219 mg/dL High Greater than or equal to 220 mg/dL Very High Serum (Serum) 05/07/2023 8:4 5 AM EST 05/07/2023 4:43 PM EST us Dhaval Acuña DO CHEMISTRY ORDERABLES Final Re sult [facility] [address] * (ABNORMAL) COMPREHENSIVE METABOLIC PANEL (05/07/2023 8:45 AM EST) Sodium 140 135 - 146 mmol/L [facility] Potassium 4.5 3.5 - 5.1 mmol/L [facility] Chloride 105 98 - 110 mmol/L [facility] CO2 24 22 - 29 mmol/L [facility] Anion Gap 11 5 - 13 mmol/L [facility] Comment:Anion gap calculatio n does not include potassium (K+) value. BUN 13 7 - 25 mg/dL [facility] Creatinine 0.81 0.50 - 1.20 mg/dL [facility] Glucose 121(H) 71 - 99 mg/dL [facility] Comment:Reference range (71- 99 mg/dL) refers only to fasting samples, and does not apply to non-fasting samples. eGFR CKD-EPI 2020 82 See Note [facility] Comment: eGFR calculated with 2020 CKD-EPI equation using creatinine, patient's age and gender. Other factors, especially muscle mass, may affect accuracy and need to be considered. Patient values should be interpreted as a trend. The reference interval is >60 mL/min/1.73m2. Calcium 9.5 8.5 - 10.5 mg/dL [facility] Total Bilirubin 0.4 0.2 - 1.2 mg/dL [facility] AST 26 0 - 30 U/L [facility] ALT 27 0 - 40 U/L [facility] Alkaline Phosphatase 100 33 - 140 U/L [facility] Total Protein 7.1 6.0 - 8.0 g/dL [facility] Albumin 3.9 3.5 - 5.0 g/dL [facility] Globulin 3.2 2.0 - 3.7 g/dL [facility] Albumin/Globulin Ratio 1.2 1.0 - 2.1 [facility] BUN/Creatinine Ratio 16 [facility] Serum (Serum) 05/07/2023 8:4 5 AM EST 05/07/2023 4:43 PM EST Dhaval Acuña DO CHEMISTRY ORDERABLES Final Re sult Performing Organization Address City/State/[facility] Co de Phone Number [facility] [address] from Last 3 Months or Most Recently Relevant to Health Maintenance Insurance [employer] Care Teams Passenger Interline Clerk Relationship Specialty Start Date End Date Albert Rosado MD [address] [place] [address] PCP - General 08/17/08 Dhaval Acuña, [address] [facility] [place] [address] Endocrinology/Diabetes/Corral bolism 06/05/21
--- OUTSIDE RECORDS SUMMARY | 2024-12-16 11:13 | XMS_ITS | Clinical Summary ---
Author Organization Health Address [facility] [place] [address] Care Team Providers Care Road Consultant Name Role Phone Albert Rosado MD Primary Care Provider [phone] Source Comments This information has been disclosed to you from confidential records protectedfrom disclosure by state law. You shall make no further disclosure of thisinformation without the specific, written, and informed release of theindividual to whom it pertains, or as otherwise permitted by law. A generalauthorization for the release of medical or other information is not sufficientfor the purposes of therelease of HIV test results or diagnoses. 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
--- OUTSIDE RECORDS SUMMARY | 2024-12-16 11:13 | XMS_ITS | Encounter Summary ---
Author Organization [facility] Address [address] [place] [address] Care Team Providers Care Dragline Operator Helper Name Role Phone Albert Rosado MD Primary Care Provider [phone] Dhaval Acuña DO Unavailable [phone] Reason for Visit * Reason Comments Medications Refill Encounter Details Date Type Department Care Team (Late st Contact Info) Description 11/03/2024 Refill [facility] - [facility], [place] [address] [facility] [address] [place] [phone] Dhaval Acuña, DO [address] [facility] [place] [address] Medications Refill Social History Tobacco Use Types [...] Telephone Encounter - Letitia Mcdonnell MA - 11/03/2024 3:21 PM EDT Last Office Visit:Oct 14 Next Office Visit:02/15/2025 documented in this encounter Plan of Treatment Upcoming Encounters Date Type Department Care Team (Late st Contact Info) Description 02/15/2025 1:30 PM EDT Appointment [facility], [place] [address] [facility] [address] [place] [address] Dhaval Acuña, [address] [facility] [place], [place] [address] documented as of this encounter Visit Diagnoses Diagnosis Controlled type 2 diabetes mellitus without complication, unspecified whether intermediate insulin use- Primary documented in this encounter Care Teams Dragline Operator Helper Relationship Specialty Start Date End Date Albert Rosado MD [address] [facility] [address] [place] [address] PCP - General 08/17/08 Dhaval Acuña, 1954 [facility] [address] [place], [place] [id number] Endocrinology/Diabetes/[place] bolism 06/05/21 documented as of this encounter
== END 2024-12-14 23:59 | disposition home or self-care (01) ==
LOC: LAB.DROPOF 12-16 10:55
PROVIDERS: PCP Nurse Practitioner; Visit Provider Nurse Practitioner
DX: M79.10 Myalgia, unspecified site (principal)
CPT/HCPCS: 80053; 82306; 82550; 83036; 83735; 84100; 84443; 85025

== ENCOUNTER 2025-01-12 07:44 | Outpatient (CLI) | payer BC, SELFPAY ==
--- OUTSIDE RECORDS SUMMARY | 2024-12-14 08:45 | XMS_ITS | Encounter Summary ---
Author Organization [facility] Address [address] [place] [address] Care Team Providers Care Nursing Staff Development Coordinator Name Role Phone Israel Rosado MD Primary Care Provider [phone] Reason for Visit * Reason Comments Injections Encounter Details Date Type Department Care Team (Latest Contact Info) Description 12/14/2024 8:45 AM EDT Office Visit [facility] [address] [place] [address] Gigi Dee APRN [address] [place] [address] Primary osteoarthritis of right knee (Primary Dx) [...] this encounter Progress Notes * Karely Mir, Watch Crystal Edge Grinder - 12/14/2024 8:45 AM EDTAssociated Order(s): Large [...] called to verify the correctpatient, procedure, equipment, child support case officer and site/side marked as required. Patient was prepped and draped in the usual sterile fashion. * Gigi Dee APRN - 12/14/2024 8:45 AM EDT Images from the original note were not included. [address] [phone] [place], [place] [phone] [place], [place] Bijal Brambila 1960 Date of Visit: [...] foot. 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 Murcia. Please note that this final operations technician was created using voice recognition software. Any errors are unintentional, and may be due to voice recognition final operations technician. Cosigned by Arnav Murcia MD at 12/16/2024 3:59 PM EDT documented in this encounter Plan of Treatment Not on file documented as of this encounter Procedures Procedure Name Priority Date/Time Associated Diagnosis Comments [place] ARTHROCENTESIS ASPIR&/INJ MAJOR JT/BURSA W/O US Routine 12/14/2024 8:45 AM EDT Primary osteoarthritis of right knee documented in this encounter Results * [place] ARTHROCENTESIS ASPIR&/INJ MAJOR JT/BURSA W/O US (12/14/2024 8:45 AM EDT) Narrative [facility] - 12/14/2024 8:45 AM EDT Karely Mir, Watch Crystal Edge Grinder 12/14/2024 8:56 AM Large Joint Injection/Arthrocentesis: R [...] to verify the correct patient, procedure, equipment, child support case officer and site/side marked as required. Patient was prepped and draped in the usual sterile fashion. Gigi Deanamaria a BANQUET LEAD PROCEDURE/MINOR SURGICAL O RDERABLES Final Result [facility] [...] Knee documented in this encounter Care Teams Nursing Staff Development Coordinator Relationship Specialty Start Date End Date Israel Rosado MD [address] [facility] [address] [place] [address] PCP - General 02/14/11 documented as of this encounter
--- NOTE | 2025-01-12 | CA_ITS ---
APPROVED REPORT Exam: Pharmacologic Technologist: Marlen Loomis Ht: 5 ft 4 in Wt: 246 lbs BSA: 2.14 m2 HR: 68 bpm BP: 142/73 mmHg Stress Test Details Test: Lexiscan HR Resting HR: 68 bpm Max Heart Rate (APMHR): 156.351438 bpm Max HR Achieved: 93 bpm Target HR (85% APMHR): 132.293407 bpm % of APMHR: 59.62 Recovery HR: 75 bpm BP Resting BP: 142.0/73.0 mmHg Max BP: 149.0/66.0 mmHg Recovery BP: 131.0/62.0 mmHg ECG Resting ECG: Sinus rhythm Stress ECG Conclusion Symptoms: Nausea, dyspnea Arrhythmias/Ectopy: - ST-T Changes: Less than [address] depression Conclusion: EKG unremarkable due to Lexiscan infusion. Electronically signed by : Norma Tolliver MD 01/12/2025 14:54:19
--- OUTSIDE RECORDS SUMMARY | 2025-01-12 07:46 | XMS_ITS | Clinical Summary ---
Author Organization [facility] Address [address] [place] [address] Phone Care Team Providers Care Stem Cleaning Machine Feeder Name Role Phone Unavailable Unavailable Conditions or Problems No information available. Medications No information available. Medications Administered No information available. Allergies, Adverse Reactions, Alerts No information available. Results No information available. Plan of Care No information available. Procedures No information available. Vital Signs No information available. Immunizations No information available. Advance Directives No information available.
--- OUTSIDE RECORDS SUMMARY | 2025-01-12 07:46 | XMS_ITS | Clinical Summary ---
Author Organization [facility] Address [address] [facility] [address] [place] [address] Phone Care Team Providers Care Neuropsychologist Name Role Phone Blanca Cote Conditions or Problems Problem Name Problem Code Onset Date Status Entry Date Provider Comment Standard Description Annotate ENCOUNTER FOR OTHER SPECIFIED SURGICAL AFTERCARE Z48.89 (ICD-10-CM) Active Mary Griffin MD Encounter for other specified surgical aftercare CARPAL TUNNEL SYNDROME, LEFT UPPER LIMB G56.02 (ICD-10-CM) Active Landen Josep Carpal tunnel syndrome, left upper limb CARPAL TUNNEL SYNDROME, RIGHT 48193689 (SNOMED CT) Active Landen Josep Carpal tunnel syndrome OVERWEIGHT 418920478 (SNOMED CT) Active iBjal Armas MA Overweight CARPAL TUNNEL SYNDROME 26513802 (SNOMED CT) Active Mary Griffin MD Carpal tunnel syndrome OBESE 926903405 (SNOMED CT) Active Mary Griffin MD Obesity Medications Medication Instructions Start Date Stop Date Generic Name NDC Provider METHOCARBAMOL 500 MG TABS 4 METHOCARBAMOL [id number] Mary Griffin MD CONTRAVE 8-90 MG [id number] 4 NALTREXONE-BUPRO PION HCL [id number] Mary Griffin MD CLOTRIMAZOLE-BETA METHASONE 1-0.05 % CREA 4 CLOTRIMAZOLE-BET AMETHASONE [id number] Mary Griffin MD AMOXICILLIN-POT CLAVULANATE 875-125 MG TABS 4 AMOXICILLIN-POT CLAVULANATE [id number] Mary Griffin MD PRAVASTATIN SODIUM 20 MG TABS 8 PRAVASTATIN SODIUM [id number] Mary Griffin MD OMEPRAZOLE 20 MG CPDR 8 OMEPRAZOLE [id number] Mary Griffin MD METFORMIN HCL 500 MG TABS 8 METFORMIN HCL [id number] Mary Griffin MD LOSARTAN POTASSIUM-HCTZ 100-12.5 MG TABS 8 [place] POTASSIUM-HCTZ [id number] Mary Griffin MD GLIMEPIRIDE 2 MG TABS 8 GLIMEPIRIDE [id number] Mary Griffin MD DULOXETINE HCL 30 MG CPEP 8 DULOXETINE HCL [id number] Mary Griffin MD DEXAMETHASONE 0.5 MG TABS 2 DEXAMETHASONE [id number] Mary Griffin MD CEFUROXIME AXETIL 500 MG TABS 3 CEFUROXIME AXETIL [id number] Mary Griffin MD Medications Administered No information [...]
--- OUTSIDE RECORDS SUMMARY | 2025-01-12 07:46 | XMS_ITS | Clinical Summary ---
Author Organization [facility] Address [facility] [place] [address] Care Team Providers Care Buncher Machine Name Role Phone Albert Rosado MD Primary Care Provider [phone] Source Comments This information has been disclosed [...] therelease of HIV test results or diagnoses. [id number] Active Problems Problem Noted Date Diagnosed [...] of Treatment Not on file Care Teams Buncher Machine Relationship Specialty Start Date End Date Albert Rosado MD [address] [facility] [address] [place] [address] PCP - General 08/26/07
--- OUTSIDE RECORDS SUMMARY | 2025-01-12 07:46 | XMS_ITS | Clinical Summary ---
Author Organization [facility] Address [address] [place] [address] Care Team Providers Care Internet Marketing Coordinator Name Role Phone Albert Rosado MD Primary Care Provider [phone] Dhaval Acuña DO Unavailable [phone] Allergies No known active allergies Medications acetaminophen (TYLENOL) 325 mg tablet Take by mouth. Activ e cholecalciferol (VITAMIN D-3) 400 unit Tablet Take by mouth. Active Coenzyme Q10 10 mg Capsule Take by mouth. Acti ve DULoxetine (CYMBALTA) 30 mg Capsule, Delayed Release(E.C.) Take 30 mg by mouth. Active Fish Oil-[place]-3 Fatty Acids 300-1,000 mg Capsule Take 2 [...] by mouth daily. 4 Active Dexcom G7 Zyglo Technician USE DIRECTED 4 Active losartan (COZAAR) 100 [...] 2 diabetes mellitus without complication, unspecified whether halfway insulin use 0.5 mg by Subcutaneous route once weekly. 3 mL 5 5 Active metFORMIN (GLUCOPHAGE-XR) 500 mg XR tabletIndication s:Controlled type 2 diabetes mellitus without complication, unspecified whether director long term care insulin use Take 1 Tablet by mouth 2 times daily. 180 Tablet 1 5 Active Active Problems Problem Noted Date Diagnosed Date Adrenal abnormality ([facility]) 10/16/2023 Encounters Date Type Department Care Team Description 11/03/2024 Refill [facility] Diabetes & Endocrine [place] [address] [facility] [address] [place] [address] Dhaval Acuña, DO Medications Refill 10/29/2024 Telephone [facility] Diabetes & Endocrine [place], [address] [address] Dhaval Acuña, DO Results 10/14/2024 2:30 PM EDT Office Visit [facility] Diabetes & Endocrine [facility] [place] [address] [facility] [address] [place] [id number] Dhaval Acuña, Controlled type 2 diabetes mellitus without complication, unspecified whether halfway insulin use (Primary Dx); Adrenal abnormality ([facility]); Morbid obesity ([facility]); Hypertension, unspecified type from [...] Description 02/15/2025 1:30 PM EDT Appointment [facility] Diabetes & Endocrine [place] [address] [facility] [address] [place] [phone] Dhaval Acuña, [address] [facility] [address] [facility] [place] [id number] Health Maintenance Due Date Last Done Comments [...] exists BMI Counseling 06/24/2024 Depression Screening 06/24/2024 Influenza Vaccination (#1) 02/22/202505/05, 04/19/2023, 04/04/2021, Additional history exists Diabetes A1c Monitoring 04/15/2025 10/15/19, 06/02/2024, 02/18/2024, Additional history exists Diabetes Mellitus Eye Exam (Yearly) 05/28/2025 05/28/2024, 05/28/2024, 09/27/2022 Tetanus Vaccination (Every 1 0 Years) 11/09/2026 11/09/2016, 04/03/2011 Lipid Screening Discontinued 05/07/2023, 09/05/2018 Influenza Vaccination (Yearly) Discontinued 1 07/05/2023, 04/19/2023, 04/04/2021, Additional history exists COVID-19 Vaccine Completed 07/08/2024, , 02/12/2022, Additional history exists Diabetes Mellitus Hemoglobin A1c (Yearly) Discontinued 10/14/2024, 06/02/2024, 02/18/2024, Additional history exists Procedures Procedure Name Priority Date/Time Associated Diagnosis Comments POCT AMB DCA HEMOGLOBIN A1C Routine 10/14/2024 2:46 PM EDT Controlled type 2 diabetes mellitus without complication, unspecified whether halfway insulin use AMB REFERRAL TO OPHTHALMOLOGY Routine 05/28/2024 3:40 PM EST COMPREHENSIVE METABOLIC PANEL Routine 05/07/2023 8:45 AM EST Controlled type 2 diabetes mellitus without complication, unspecified whether director long term care insulin use ([facility]) LIPID PROFILE Routine 05/07/2023 8:45 AM EST Controlled type 2 diabetes mellitus without complication, unspecified whether halfway insulin use ([facility]) ALBUMIN, URINE CREATININE/RATIO Routine 05/07/2023 8:45 AM EST Controlled type 2 diabetes mellitus without complication, unspecified whether halfway insulin use ([facility]) from Last 3 Months or [...] Creatinine, Ur 45.7 20.0 - 310.0 mg/dL [facility] Alb, Ur 0.50 mg/dL [facility]LL[facility] Alb Creat Ratio 11 0 - 30 mg/g creat [facility] Comment: Category Result (mg/ [...] Dhaval Acuña DO URINE ORDERABLES Final Result [facility] [address] * LIPID PROFILE (05/07/2023 8:45 AM EST) Cholesterol 148 125 - 199 mg/dL [facility] Comment: TOTAL CHOLESTEROL INTERPRETATION: [...] NONHDL Calculated 104 0 - 129 mg/dL [facility] Comment: NON-HDL INTERPRETATION: Less than 130 mg/dL Desirable 130-159 mg/dL Above Desirable 160-189 mg/dL Borderline High 190-219 mg/dL High Greater than or equal to 220 mg/dL Very High Serum (Serum) 05/07/2023 8:4 5 AM EST 05/07/2023 4:43 PM EST us Dhaval Acuña DO CHEMISTRY ORDERABLES Final Re sult [facility] [address] * (ABNORMAL) COMPREHENSIVE METABOLIC PANEL (05/07/2023 [...] samples. eGFR CKD-EPI 2020 82 See Note [facility] Comment: eGFR calculated with 2020 [...] LAB Albumin/Globulin Ratio 1.2 1.0 - 2.1 [facility] BUN/Creatinine Ratio 16 [facility] EXTER[facility] Serum (Serum) 05/07/2023 8:4 5 AM EST 05/07/2023 4:43 PM EST us Dhaval Acuña DO CHEMISTRY ORDERABLES Final Re sult [facility] [address] from Last 3 Months or Most Recently Relevant to Health Maintenance Insurance [employer] Care Teams Internet Marketing Coordinator Relationship Specialty Start Date End Date Albert Rosado MD [facility]0 ID [address] [place] [address] PCP - General 08/17/08 Dhaval Acuña, [address] [place] [address] Endocrinology/Diabetes/[place] bolism 06/05/21
--- OUTSIDE RECORDS SUMMARY | 2025-01-12 07:46 | XMS_ITS | Clinical Summary ---
Author Organization [facility] Address [address] [place] [address] Care Team Providers Care Foreign Languages Department Chair Name Role Phone Unavailable Primary Care Provider [...] Minerals-Vitami ns (CALCIUM-MAGNES IUM-ZINC-D3 PO) Acti ve [place] 3 1000 MG capsule Take 2 g [...] [facility]-Zoster Vaccines (2 of 2) 11/20/2021 09/25/2021 [id number] Vaccine (5 - 2023- season) 2024 02/12/2022, 04/25/2021, 08/10/2020, Additional history exists [facility]-Influenza Vaccine (#1) 02/22/202504/04, 04/28/2002, 04/28/2001 [facility]-DTaP,Tdap,and Td Vaccines (3 - [...]
--- OUTSIDE RECORDS SUMMARY | 2025-01-12 07:46 | XMS_ITS ---
Author Organization Unknown Medications Medication Instructions Effective Dates (start - stop) Status hydrochlorothiazide 12.5 MG / losartan potassium 100 MG Oral Tablet [id number]:00:00.000+00 :00 - Completed hydrochlorothiazide 12.5 MG / losartan potassium 100 MG Oral Tablet 6813-97-74H93:00:00.000+00 :00 - Completed hydrochlorothiazide 12.5 MG / losartan potassium 100 MG Oral Tablet [id number]:00:00.000+00 :00 - Completed hydrochlorothiazide 12.5 MG / losartan potassium 100 MG Oral Tablet [id number]:00:00.000+00 :00 - Completed hydrochlorothiazide 12.5 MG / losartan potassium 100 MG Oral Tablet [id number]:00:00.000+00 :00 - Completed hydrochlorothiazide 12.5 MG / losartan potassium 100 MG Oral Tablet [id number]:00:00.000+00 :00 - Completed hydrochlorothiazide 12.5 MG / losartan potassium 100 MG Oral Tablet 7288-24-01Q33:00:00.000+00 :00 - Completed 0.25 MG, 0.5 MG Dose 1.5 ML semaglutide 1.34 MG/ML Pen Injector [Ozempic] [id number]:00:00.000+00 :00 - Completed 0.25 MG, 0.5 MG Dose 1.5 ML semaglutide 1.34 MG/ML Pen Injector [Ozempic] [id number]:00:00.000+00 :00 - Completed 0.25 MG, 0.5 MG Dose 1.5 ML semaglutide 1.34 MG/ML Pen Injector [Ozempic] [id number]:00:00.000+00 :00 - Completed 0.25 MG, 0.5 MG Dose 1.5 ML semaglutide 1.34 MG/ML Pen Injector [Ozempic] [id number]:00:00.000+00 :00 - Completed 0.25 MG, 0.5 MG Dose 1.5 ML semaglutide 1.34 MG/ML Pen Injector [Ozempic] [id number]:00:00.000+00 :00 - Completed 0.25 MG, 0.5 MG Dose 1.5 ML semaglutide 1.34 MG/ML Pen Injector [Ozempic] [id number]:00:00.000+00 :00 - Completed 0.25 MG, 0.5 MG Dose 1.5 ML semaglutide 1.34 MG/ML Pen Injector [OzDeerTech] [id number]:00:00.000+00 :00 - Completed 3 ML semaglutide 1.34 MG/ML Pen Injector [OzDeerTech] [id number]:00:00.000+00 :00 - Completed 3 ML semaglutide 1.34 MG/ML Pen Injector [OzPrivacy Networksic] 0586-27-14L67:00:00.000+00 :00 - Completed 3 ML semaglutide 1.34 MG/ML Pen Injector [[employer]DeerTech] [id number]:00:00.000+00 :00 - Completed 3 ML semaglutide 1.34 MG/ML Pen Injector [[employer]] [id number]:00:00.000+00 :00 - Completed pravastatin sodium 20 MG Oral Tablet 4619-90-93Z67:00:00.000+00 :00 - Completed pravastatin sodium 20 MG Oral Tablet 8840-99-39J78:00:00.000+00 :00 - Completed pravastatin sodium 20 MG Oral Tablet 9891-31-65E27:00:00.000+00 :00 - Completed pravastatin sodium 20 MG Oral Tablet 2717-60-54J11:00:00.000+00 :00 - Completed pravastatin sodium 20 MG Oral Tablet 2461-28-60C37:00:00.000+00 :00 - Completed pravastatin sodium 20 MG Oral Tablet 5123-15-94T89:00:00.000+00 :00 - Completed pravastatin sodium 20 MG Oral Tablet 5351-58-08V23:00:00.000+00 :00 - Completed pravastatin sodium 20 MG Oral Tablet 2796-35-46L65:00:00.000+00 :00 - Completed [id number] 200 ACTUAT albuter ol 0.09 MG/ACTUAT Metered Dose Inhaler 2788-39-08Z68:00:00.000 +00 :00 - Completed lifitegrast 50 MG/ML Ophthal pranay Solution [Xiidra] [id number]:00:00.000+00 :00 - Completed lifitegrast 50 MG/ML Ophthal pranay Solution [Xiidra] [id number]:00:00.000+00 :00 - Completed 24 HR metformin hydrochlorid e 500 MG Extended Release Oral Tablet [id number]:00:00.000+0 0 :00 - Completed 24 HR metformin hydrochlorid e 500 MG Extended Release Oral Tablet 7120-75-84E06:00:00.000+0 0 :00 - Completed methocarbamol 500 MG Oral Tablet 5056-46-56Z91:00:00.000+00 :00 - Completed methocarbamol 500 MG Oral Tablet 3828-75-66H54:00:00.000+00 :00 - Completed methocarbamol 500 MG Oral Tablet 4210-35-98D75:00:00.000+00 :00 - Completed 24 HR metformin hydrochlorid e 500 MG Extended Release Oral Tablet 1658-63-51T68:00:00.000+0 0 :00 - Completed metformin hydrochloride 500 MG Oral Tablet 5596-33-26Q04:00:00.000+00 :00 - Completed metformin hydrochloride 500 MG Oral Tablet 6445-92-13M44:00:00.000+00 :00 - Completed metformin hydrochloride 500 MG Oral Tablet 1781-07-72L96:00:00.000+00 :00 - Completed benzonatate 200 MG Oral Capsule 6531-27-31S00:00:00.000+00 :00 - Completed omeprazole 20 MG Delayed Rel ease Oral Capsule 5857-62-14A61:00:00.000+00 :00 - Completed omeprazole 20 MG Delayed Rel ease Oral Capsule 5461-81-37Y08:00:00.000+00 :00 - Completed omeprazole 20 MG Delayed Rel ease Oral Capsule 5789-04-68Z14:00:00.000+00 :00 - Completed duloxetine 60 MG Delayed Rel ease Oral Capsule 1367-46-44L89:00:00.000+00 :00 - Completed duloxetine 60 MG Delayed Rel ease Oral Capsule 0647-14-53N91:00:00.000+00 :00 - Completed duloxetine 60 MG Delayed Rel ease Oral Capsule 5222-59-13F49:00:00.000+00 :00 - Completed duloxetine 60 MG Delayed Rel ease Oral Capsule [id number]:00:00.000+00 :00 - Completed duloxetine 60 MG Delayed Rel ease Oral Capsule 9267-42-51B78:00:00.000+00 :00 - Completed duloxetine 60 MG Delayed Rel ease Oral Capsule 4091-60-06R10:00:00.000+00 :00 - Completed duloxetine 60 MG Delayed Rel ease Oral Capsule 8024-09-80Z31:00:00.000+00 :00 - Completed duloxetine 60 MG Delayed Rel ease Oral Capsule 3939-36-36A90:00:00.000+00 :00 - Completed duloxetine 60 MG Delayed Rel ease Oral Capsule 3486-76-32D72:00:00.000+00 :00 - Completed cefdinir 300 MG Oral Capsule 08-27-12:00:00.000+00 :00 - Completed {21 (methylprednisolone 4 MG Oral Tablet) } Pack [id number]:00:00.000+00 :00 - Completed {21 (methylprednisolone 4 MG Oral Tablet) } Pack [id number]:00:00.000+00 :00 - Completed {6 (azithromycin 250 MG Oral Tablet) } Pack [id number]:00:00.000+00 :00 - Completed ciprofloxacin 500 MG Oral Tablet 9975-33-57A80:00:00.000+00 :00 - Completed 24 HR oxybutynin chloride 5 MG Extended Release Oral Tablet 5761-47-46R82:00:00.000+0 0 :00 - Completed 24 HR oxybutynin chloride 5 MG Extended Release Oral Tablet 8745-34-96J33:00:00.000+0 0 :00 - Completed 24 HR oxybutynin chloride 5 MG Extended Release Oral Tablet 1500-25-35M80:00:00.000+0 0 :00 - Completed - 5850-17-49E06:00 :00.000+00 :00 - Completed hyoscyamine sulfate 0.125 MG Oral Tablet 3109-99-14W71:00:00.000+00 :00 - Completed hyoscyamine sulfate 0.125 MG Oral Tablet 8655-98-94L86:00:00.000+00 :00 - Completed hyoscyamine sulfate 0.125 MG Oral Tablet 5639-49-16L25:00:00.000+00 :00 - Completed hyoscyamine sulfate 0.125 MG Oral Tablet 7180-60-16Z18:00:00.000+00 :00 - Completed Patient Care team information Name Category Status Period Participants - - Proposed period not known -
--- OUTSIDE RECORDS SUMMARY | 2025-01-12 07:46 | XMS_ITS | Clinical Summary ---
Author Organization [facility] Address [address] [place] [address] Care Team Providers Care Visitor Services Coordinator Name Role Phone Albert Rosado MD Primary Care Provider [phone] Social History Tobacco Use Types Packs/Day Years Used Date Smoking Tobacco: Never Assessed Abuse Screen Answer Date Recorded Unsafe at Home or Work/School Not on file Feels Threatened by Someone? Not on file 02/2023 Does Anyone Keep You from Co ntacting Others or Doint Things Outside the Home? Not on file 04/01/2023 Physical Sign of Abuse Present Not on file 1 Housing Stability Answer Date Recorded Current Living Arrangements Not on file 02/2023 Potentially Unsafe Housing Conditions Not on ashley e 04/01/2023 Family and Community Support Answer Stanley e Recorded Help with Day-to-Day Activities Not on file 04/01/2023 Lonely or Isolated Not on file 04/01/2023 Employment Answer Date Recorded Do you want help finding or keeping work or a kareem b? Not on file 04/01/2023 Disabilities Answer Date Recorded Concentrating, Remembering, or Making Decisions Difficulty Not on file 04/01/2023 Doing Errands Independently Difficulty Not on fi le 04/01/2023 Education Answer Date Recorded Help with school or training? Not on file Preferred Language Not on file 04/01/2023 Comments Unknown Sex and Gender Information Value Date Recorded Sex Assigned at Not on file Legal Sex Female 1:31 PM EDT Gender Identity Not on file Sexual Orientation Not on file Plan of Treatment Health Maintenance Due Date Last Done Comments Annual Gynecologic Pelvic and Breast Exam 1960 TDAP/TD VACCINES (1 - Tdap) 02/09/1979 MAMMOGRAM 2000 COLOGUARD 02/09/2005 COLON CANCER SCREENING 5 YEAR SIGMOIDOSCOPY 02/09/2005 COLONOSCOPY 02/09/2005 COLORECTAL CANCER SCREENING 02/09/2005 CT COLONOGRAPHY 02/09/2005 FECAL OCCULT BLOOD TEST 02/09/2005 FIT Testing (1 year) 02/09/2005 Pneumococcal Vaccine 50+ (1 of 1 - PCV) 02/09/2010 ZOSTER VACCINE (1 of 2) 02/09/2010 ANNUAL PHYSICAL 08/14/2017 HEPATITIS C SCREENING 08/14/2017 COVID-19 Vaccine (2023- season) 2024 INFLUENZA VACCINE 03/24/[address] [place] [place] [address] EMPLOYEE Care Teams Visitor Services Coordinator Relationship Specialty Start Date End Date Albert Rosado MD [address] [facility] [address] [place] [id number] PCP - General 07/28/15
--- OUTSIDE RECORDS SUMMARY | 2025-01-12 07:46 | XMS_ITS | Encounter Summary ---
Author Organization [facility] Address [address] [place] [address] Care Team Providers Care Publication Director Name Role Phone Albert Rosado MD Primary Care Provider [phone] Dhaval Acuña DO Unavailable [phone] Reason for Visit * Reason Onset Date Comments Other 08/16/2023 Encounter Details Date Type Department Care Team (Late st Contact Info) Description 08/16/2023 Telephone [facility] - Diabetes & Endocrine Center, [place] [address] [place] [address] Dhaval Acuña, DO [address] [facility] [place] [address] Other Social History Tobacco Use Types Packs/Day [...] Description 02/15/2025 1:30 PM EDT Appointment [facility], [place] [address] [facility] [address] [place] [address] Dhaval Acuña, [address] [facility] [address] [place] [address] documented as of this encounter Visit Diagnoses Not on filedocumented in this encounter Care Teams Publication Director Relationship Specialty Start Date End Date Albert Rosado MD [address] [facility] [address] [place] [address] PCP - General 08/17/08 Dhaval Acuña, [address] [facility] [address] [place] [address] Endocrinology/Diabetes/[place] bolism 06/05/21 documented as of this encounter
--- OUTSIDE RECORDS SUMMARY | 2025-01-12 07:46 | XMS_ITS | Clinical Summary ---
Author Organization [facility] Address [address] [place] [address] Phone Care Team Providers Care Property Supervisor Name Role Phone Israel Rosado MD Primary Care Provider [phone] Allergies No known active allergies Medications omeprazole [...] Description 12/14/2024 8:45 [place] [address] Ggii Dee APRN Primary osteoarthritis of right knee (Primary Dx) from Last 3 Months Surgical History Surgery [...] 2020 Zoster (2 of 2) 11/20/2021 09/25/2021 Influenza Vaccine (#1) 2025 , 04/19/2023, 04/04/2021 DTaP/TDaP/Td (3 - Td or Tdap) 11/09/2026 11/09/2016, 04/03/2011, 07/17/2006, Additional history exists Hepatitis B Vaccine Completed 01/15/2005, 11/20/1991, 05/15/1991, Additional history exists COVID-19 Vaccine Completed 07/08/2024, , 02/12/2022, Additional history exists Meningococcal B Vaccine Aged Out No l onger eligible based on patient's age to complete this topic Medical Devices Implanted Type Area Supervisor Coremaker Device Identifier Shelf Expiration Date Model / Serial / Lot Mesh Srg Prln 6x4in Hrn Ptch Sft Flt Strl Pp - [id number] Implanted:Qty: 1 on 01/23/2018 by Zhen Strickland MD at [facility] N/A: Abdomen CR BARD:DAVOL 04/20/2022 [id number] / / [id number] Procedures Procedure Name Priority Date/Time Associated Diagnosis Comments MD ARTHROCENTESIS ASPIR&/INJ MAJOR JT/BURSA W/O US Routine 12/14/2024 8:45 AM EDT Primary osteoarthritis of right knee from Last 3 Months Results * MD ARTHROCENTESIS ASPIR&/INJ MAJOR JT/BURSA W/O US (12/14/2024 8:45 AM EDT) Narrative ORTHOCINCY - 12/14/2024 8:45 AM EDT Karely Mir Tractor Crane Operator 12/14/2024 8:56 AM Large Joint Injection/Arthrocentesis: [...] to verify the correct patient, procedure, equipment, merchandise support associate and site/side marked as required. Patient was prepped and draped in the usual sterile fashion. Gigi Dee RN CLINICAL RESEARCH PROCEDURE/MINOR SURGICAL O RDERABLES Final Result Performing Organization Address City/State/[facility] Co de Phone Number ORTHOCINCY from Last 3 Months Insurance ANTHEM PPO ANTHEM PPO ANTHEM PPO ANTHEM PPO Advance Directives For more information, please contact: [phone] * Full Code (Latest Code Status on File) Date Activated Date Inactivated Comments 01/25/2018 2:27 PM 01/27/2018 3:56 PM Care Teams Property Supervisor Relationship Specialty Start Date End Date Israel Rosado MD [address] [place] [address] PCP - General 02/14/11
--- OUTSIDE RECORDS SUMMARY | 2025-01-12 07:46 | XMS_ITS | Encounter Summary ---
Author Organization [facility] Address [address] [place] [address] Care Team Providers Care Pillar Man Name Role Phone Albert Rosado MD Primary Care Provider [phone] Dhaval Acuña DO Unavailable [phone] Reason for Visit * Reason Comments Medications Refill Encounter Details Date Type Department Care Team (Late st Contact Info) Description 12/16/2020 Refill [facility] - Diabetes & Endocrine Center, [place] [address] [place] [address] [address] [place] [phone] Dhaval Acuña, DO [address] [facility] [place] [address] Medications Refill Social History Tobacco Use Types [...] Description 02/15/2025 1:30 PM EDT Appointment [facility] Diabetes [facility] Endocrine [facility], [place] [address] [facility] [address] [place] [address] Dhaval Acuña, [address] [facility] [address] [place], [place] [id number] documented as of this encounter Visit Diagnoses Diagnosis Controlled type 2 diabetes mellitus without complication, unspecified whether exterminator helper insulin use documented in this encounter Care Teams Pillar Man Relationship Specialty Start Date End Date Albert Rosado MD [address] [facility] [address] [place] [address] PCP - General 08/17/08 Dhaval Acuña, [address] [facility] [address] [place], [place] [id number] Endocrinology/Diabetes/[place] bolism 06/05/21 documented as of this encounter
--- NOTE | 2025-01-12 08:00 | NM_ITS ---
APPROVED REPORT Exam: Nuclear Stress Test Indication: Abnormal EKG, SOB, HTN, DM, High cholesterol, Family history Patient Location: Outpatient Stress Tech: Marlen Loomis DC Tech:Jade Pleitez, ARRT, RT (R)(N) Ht: 5 ft 4 in Wt: 245 lbs Bra Size: C HR: 69 bpm BP: 142/73 mmHg BSA: 2.13 m2 TID: 1.11 BMI: 42.0 History: Abnormal EKG, SOB, HTN, DM, High cholesterol, Family history Procedure: Patient received 0.4 mg of intravenous Lexiscan, resting heart rate 69 bpm, resting blood pressure 142/73 mmHg, with Lexiscan maximum heart rate achieved was 94 bpm which is % of the maximum predicted heart rate and blood pressure was 149/66 mmHg. With Lexiscan, patient denied any complaint of chest pain. Cardiac Stress and Resting SPECT Images: Cardiac Stress and Resting SPECT images were obtained using technetium 99m Myoview 32.9 mCi stress and 10.54 mCi at rest. Resting and stress imaging in supine and prone position demonstrate no evidence of fixed or reversible perfusion defects. Gated imaging demonstrates normal global and regional LV systolic function. LVEF is calculated at 70%. Conclusion: No evidence of fixed or reversible perfusion defects. Gated imaging demonstrates normal global and regional LV systolic function. LVEF is calculated at 70%. Electronically signed by : Norma Tolliver MD 01/12/2025 14:48:22
[2025-01-12] MEDS: SODIUM CHLORIDE 0.9% 10ML SYR (RAD ONLY) 10 ML IV ×2 (09:31)
[2025-01-12] MEDS: ISOTOPE MYOVIEW (PER STUDY) 1 DOSE IV (09:31)
== END 2025-01-12 23:59 | disposition home or self-care (01) ==
LOC: RAD 07:45
PROVIDERS: PCP Nurse Practitioner; Visit Provider Physician Assistant
DX: Z01.810 Encounter for preprocedural cardiovascular examination (principal); R00.2 Palpitations; R06.09 Other forms of dyspnea; R94.31 Abnormal electrocardiogram [ECG] [EKG]; Z82.49 Family history of ischemic heart disease and other diseases of the circulatory system; I10 Essential (primary) hypertension; R11.0 Nausea
CPT/HCPCS: 78452; 93016; 93017; 93018; A9502; J2785

== ENCOUNTER 2025-01-13 10:23 | Outpatient (CLI) | payer BC, SELFPAY ==
--- OUTSIDE RECORDS SUMMARY | 2024-12-14 08:45 | XMS_ITS | Encounter Summary ---
Author Organization [facility] Address [address] [place] [address] Care Team Providers Care Art Teacher Name Role Phone Israel Rosado MD Primary Care Provider [phone] Reason for Visit * Reason Comments Injections Encounter Details Date Type Department Care Team (Latest Contact Info) Description 12/14/2024 8:45 AM EDT Office Visit [facility] [address] [place] [address] Gigi Dee APRN [address] [place] [address] Primary osteoarthritis of right knee (Primary Dx) [...] this encounter Progress Notes * Karely Mir, Screen Printing Press Operator - 12/14/2024 8:45 AM EDTAssociated Order(s): [...] to verify the correctpatient, procedure, equipment, support engineer and site/side marked as required. Patient was prepped and draped in the usual sterile fashion. * Gigi Dee APRN - 12/14/2024 8:45 AM EDT Images from the original note were not included. [address] [phone] [place], [place] [phone] [place], [place] Bijal Brambila 1960 Date of Visit: 12/14/2024 Chief Complaint: Chief Complaint Patient presents with Right Knee - Injections HISTORY: The patient comes in for a recheck on the Right Knee. The patient would like a right knee injection today. Experiences pain located along the medial joint line. States that she wants to get through hay season, and may want to further consider a total knee replacement this fall. States that she has been experiencing muscle spasms that radiate from her groin to her foot. 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 She has been taking methocarbamol, which helps minimally. Reports that she wants to follow-up withher family doctor to have her electrolytes evaluated. PHYSICAL EXAMINATION: Physical examination of the knee is unchanged from previous. Bilateral hip range of motion is full extension to 90 degrees of flexion. Internal rotation is approximately 10 degrees and external rotation is approximate 12 degrees. No reproducible hip pain with RANDY, FADIR, and AMALIA. Mild weakness with [place]. Negative straight leg raise and clonus. IMPRESSION: Severe right knee osteoarthritis right PLAN: She elects to proceed with a right knee cortisone injection today. Advised the patient that the last injection was 3 months prior to the date of surgery. She will contact the office if she elects to repeat an injection versus consider total knee replacement in the future. At this point we will go ahead and proceed with the injections. Also discussed obtaining x-rays of her lumbar spine if the muscle spasms persisted. She elects to continue to monitor the back at this timeframe, and will contact the office if the spasms persist. The patient knows to contact our office with any questions or concerns before their next appointment and we will be happy to address them urgently. All questions were answered. PROCEDURE: Verbal and written consent was obtained for a right knee corticosteroid injection. The patient understands there is a risk for infection which may require surgery. In addition, they may only get temporary relief or no relief of their symptoms. The patient is advised to call the office ofany signs of infection immediately. The patient was also advised to watch their blood sugars if they have diabetes. See procedure note below. DME Summary No orders found for display The supervising/collaborating provider for the technical component of the x-rays is Dr. Murcia. Please note that this textiles printer was created using voice recognition software. Any errors are unintentional, and may be due to voice recognition textiles printer. Cosigned by Arnav Murcia MD at 12/16/2024 3:59 PM EDT documented in this encounter Plan of Treatment Not on file documented as of this encounter Procedures Procedure Name Priority Date/Time Associated Diagnosis Comments [place] ARTHROCENTESIS ASPIR&/INJ MAJOR JT/BURSA W/O US Routine 12/14/2024 8:45 AM EDT Primary osteoarthritis of right knee documented in this encounter Results * [place] ARTHROCENTESIS ASPIR&/INJ MAJOR JT/BURSA W/O US (12/14/2024 8:45 AM EDT) Narrative [facility] - 12/14/2024 8:45 AM EDT Karely Mir, Screen Printing Press Operator 12/14/2024 8:56 AM Large Joint Injection/Arthrocentesis: R [...] verify the correct patient, procedure, equipment, support engineer and site/side marked as required. Patient was prepped and draped in the usual sterile fashion. Gigi Deanamaria a ELEMENTARY ELL TEACHER PROCEDURE/MINOR SURGICAL O RDERABLES Final Result [facility] [...] Knee documented in this encounter Care Teams Art Teacher Relationship Specialty Start Date End Date Israel Rosado MD [address] [facility] [address] [place] [id number] PCP - General 02/14/11 documented as of this encounter
--- OUTSIDE RECORDS SUMMARY | 2025-01-13 10:25 | XMS_ITS | Clinical Summary ---
Author Organization [facility] Address [address] [facility] [address] [place] [address] Phone Care Team Providers Care Speaking Unit Assembler Name Role Phone Blanca Cote Conditions or Problems Problem Name Problem Code Onset Date Status Entry Date Provider Comment Standard Description Annotate ENCOUNTER FOR OTHER SPECIFIED SURGICAL AFTERCARE Z48.89 (ICD-10-CM) Active Mary Griffin MD Encounter for other specified surgical aftercare CARPAL TUNNEL SYNDROME, LEFT UPPER LIMB G56.02 (ICD-10-CM) Active Landen Josep Carpal tunnel syndrome, left upper limb CARPAL TUNNEL SYNDROME, RIGHT 80883722 (SNOMED CT) Active Landen Josep Carpal tunnel syndrome OVERWEIGHT 951231567 (SNOMED CT) Active Bijal Armas MA Overweight CARPAL TUNNEL SYNDROME 84572713 (SNOMED CT) Active Mary Griffin MD Carpal tunnel syndrome OBESE 799881209 (SNOMED CT) Active Mary Griffin MD Obesity Medications Medication Instructions Start Date Stop Date Generic Name NDC Provider METHOCARBAMOL 500 MG TABS 4 METHOCARBAMOL [id number] Mary Griffin MD CONTRAVE 8-90 MG [id number] 4 NALTREXONE-BUPRO PION HCL [id number] Mary Griffin MD CLOTRIMAZOLE-BETA METHASONE 1-0.05 % CREA 4 CLOTRIMAZOLE-BET AMETHASONE [id number] Mary Griffin MD AMOXICILLIN-POT CLAVULANATE 875-125 MG TABS 4 AMOXICILLIN-POT CLAVULANATE [id number] Mary Griffin MD PRAVASTATIN SODIUM 20 MG TABS 8 PRAVASTATIN SODIUM 02482861048 Mary Griffin MD OMEPRAZOLE 20 MG CPDR 8 OMEPRAZOLE [id number] Mary Griffin MD METFORMIN HCL 500 MG TABS 8 METFORMIN HCL [id number] Mary Griffin MD LOSARTAN POTASSIUM-HCTZ 100-12.5 MG TABS 8 LOSARTAN POTASSIUM-HCTZ [id number] Mary Griffin MD GLIMEPIRIDE 2 MG TABS 8 GLIMEPIRIDE 91062308265 Mary Griffin MD DULOXETINE HCL 30 MG CPEP 8 DULOXETINE HCL 84291132220 Mary Griffin MD DEXAMETHASONE 0.5 MG TABS 2 DEXAMETHASONE [id number] Mary Griffin MD CEFUROXIME AXETIL 500 MG TABS 3 CEFUROXIME AXETIL [id number] Mary Griffin MD Medications Administered No information [...]
--- OUTSIDE RECORDS SUMMARY | 2025-01-13 10:26 | XMS_ITS | Encounter Summary ---
Author Organization [facility] Address [address] [place] [address] Care Team Providers Care Growth Hacker Name Role Phone Albert Rosado MD Primary Care Provider [phone] Dhaval Acuña DO Unavailable [phone] Reason for Visit * Reason Comments Medications Refill Encounter Details Date Type Department Care Team (Late st Contact Info) Description 12/16/2020 Refill [facility] - Diabetes [facility] Endocrine [facility], [place] [address] [place] [address] [address] [place] [id number] Dhaval Acuña, DO [address] [facility]. [address] [place] [address] Medications Refill Social History Tobacco Use Types [...] Description 02/15/2025 1:30 PM EDT Appointment [facility], [place] [address] [facility] [address] [place] [address] Dhaval Acuña, [address] [facility] [address] [place], [place] [id number] documented as of this encounter Visit Diagnoses Diagnosis Controlled type 2 diabetes mellitus without complication, unspecified whether terminal computer operator insulin use documented in this encounter Care Teams Growth Hacker Relationship Specialty Start Date End Date Albert Rosado MD [address] [facility] [address] [place] [address] PCP - General 08/17/08 Dhaval Acuña, 1954 [address] [facility] [address] [place], [place] [address] Endocrinology/Diabetes/[place] bolism 06/05/21 documented as of this encounter
--- OUTSIDE RECORDS SUMMARY | 2025-01-13 10:26 | XMS_ITS | Clinical Summary ---
Author Organization [facility] Address [address] [place] [address] Care Team Providers Care Hatch Supervisor Name Role Phone Albert Rosado MD Primary Care Provider [phone] Dhaval Acuña DO Unavailable [phone] Allergies No known active allergies Medications acetaminophen (TYLENOL) 325 mg tablet Take by mouth. Activ e cholecalciferol (VITAMIN D-3) 400 unit Tablet Take by mouth. Active Coenzyme Q10 10 mg Capsule Take by mouth. Acti ve DULoxetine (CYMBALTA) 30 mg Capsule, Delayed Release(E.C.) Take 30 mg by mouth. Active Fish Oil-Panguitch-3 Fatty Acids 300-1,000 mg Capsule Take 2 [...] by mouth daily. 4 Active Dexcom G7 Radioisotope Technologist USE DIRECTED 4 Active losartan (COZAAR) 100 [...] 2 diabetes mellitus without complication, unspecified whether senior care insulin use 0.5 mg by Subcutaneous route once weekly. 3 mL 5 5 Active metFORMIN (GLUCOPHAGE-XR) 500 mg XR tabletIndication s:Controlled type 2 diabetes mellitus without complication, unspecified whether meterman insulin use Take 1 Tablet by mouth 2 times daily. 180 Tablet 1 5 Active Active Problems Problem Noted Date Diagnosed Date Adrenal abnormality ([facility]) 10/16/2023 Encounters Date Type Department Care Team Description 11/03/2024 Refill [facility] Diabetes & Endocrine [place], [place] [address] [facility] [address] [place] [address] Dhaval Acuña, DO Medications Refill 10/29/2024 Telephone [facility] Diabetes [facility] Endocrine [place], [address] [address] Dhaval Acuña, DO Results 10/14/2024 2:30 PM EDT Office Visit [facility] Diabetes & Endocrine [facility] [address] [facility] [address] [place] [id number] Dhaval Acuña, Controlled type 2 diabetes mellitus without complication, unspecified whether senior care insulin use (Primary Dx); Adrenal abnormality ([facility]); Morbid obesity ([facility]); Hypertension, unspecified type from Last 3 [...] Description 02/15/2025 1:30 PM EDT Appointment [facility] Diabetes [facility] Endocrine [place], [place] [address] [facility] [address] [place] [phone] Dhaval Acuña, [address] [facility] [address] [facility] [place] [id number] Health Maintenance Due Date Last Done Comments [...] 2 diabetes mellitus without complication, unspecified whether senior care insulin use AMB REFERRAL TO OPHTHALMOLOGY Routine 05/28/2024 3:40 PM EST COMPREHENSIVE METABOLIC PANEL Routine 05/07/2023 8:45 AM EST Controlled type 2 diabetes mellitus without complication, unspecified whether meterman insulin use ([facility]) LIPID PROFILE Routine 05/07/2023 8:45 AM EST Controlled type 2 diabetes mellitus without complication, unspecified whether senior care insulin use ([facility]) ALBUMIN, URINE CREATININE/RATIO Routine 05/07/2023 8:45 AM EST Controlled type 2 diabetes mellitus without complication, unspecified whether senior care insulin use ([facility]) from Last 3 Months or Most Recently [...] Creatinine, Ur 45.7 20.0 - 310.0 mg/dL [facility] Alb, Ur 0.50 mg/dL [facility] Alb Creat Ratio 11 0 - 30 mg/g creat [facility] Comment: Category Result (mg/ g [...] Dhaval Acuña DO URINE ORDERABLES Final Result [facility] [address] * LIPID PROFILE (05/07/2023 8:45 AM EST) Cholesterol 148 125 - 199 mg/dL [facility] Comment: TOTAL CHOLESTEROL INTERPRETATION: Less [...] NONHDL Calculated 104 0 - 129 mg/dL [facility] Comment: NON-HDL INTERPRETATION: Less than 130 mg/dL Desirable 130-159 mg/dL Above Desirable 160-189 mg/dL Borderline High 190-219 mg/dL High Greater than or equal to 220 mg/dL Very High Serum (Serum) 05/07/2023 8:4 5 AM EST 05/07/2023 4:43 PM EST us Dhaval Acuña DO CHEMISTRY ORDERABLES Final Re sult [facility] [address] * (ABNORMAL) COMPREHENSIVE METABOLIC PANEL (05/07/2023 [...] samples. eGFR CKD-EPI 2020 82 See Note [facility] Comment: eGFR calculated with 2020 [...] LAB Albumin/Globulin Ratio 1.2 1.0 - 2.1 [facility] BUN/Creatinine Ratio 16 [facility] Serum (Serum) 05/07/2023 8:4 5 AM EST 05/07/2023 4:43 PM EST us Dhaval Acuña DO CHEMISTRY ORDERABLES Final Re sult [facility] [address] from Last 3 Months or Most Recently Relevant to Health Maintenance Insurance [employer] Care Teams Hatch Supervisor Relationship Specialty Start Date End Date Albert Rosado MD [facility] [place] [address] [place] [address] PCP - General 08/17/08 Dhaval Acuña, 1954 [address] [place] [address] Endocrinology/Diabetes/[facility] bolism 06/05/21
--- OUTSIDE RECORDS SUMMARY | 2025-01-13 10:26 | XMS_ITS | Clinical Summary ---
Author Organization Health Address [facility] [place] [address] Care Team Providers Care Network Architect Name Role Phone Albert Rosado MD Primary Care Provider [phone] Source Comments This information has been disclosed [...] therelease of HIV test results or diagnoses. [id number] Health Active Problems Problem Noted Date Diagnosed [...] of Treatment Not on file Care Teams Network Architect Relationship Specialty Start Date End Date Albert Rosado MD [address] [facility] [address] [place] [address] PCP - General 08/26/07
--- OUTSIDE RECORDS SUMMARY | 2025-01-13 10:26 | XMS_ITS | Clinical Summary ---
Author Organization [facility] Address [address] [place] [address] Phone Care Team Providers Care Acute Care Nursing Assistant Name Role Phone Israel Rosado MD Primary Care Provider [phone] Allergies No known active allergies Medications omeprazole [...] skin) 0.5 mg once a week. Active Active Problems Problem Noted Date Diagnosed Date Pain in both knees 09/18/2024 Incisional hernia, without obstruction or gangre ne 01/24/2018 Encounters Date Type Department Care Team Description 12/14/2024 8:45 [place] [address] iGgi Dee APRN Primary osteoarthritis of right knee [...] 2) 11/20/2021 09/25/2021 Influenza Vaccine (#1) 2025 4, 04/19/2023, 04/04/2021 DTaP/TDaP/Td (3 - Td or Tdap) 11/09/2026 11/09/2016, 04/03/2011, 07/17/2006, Additional history exists Hepatitis B Vaccine Completed 01/15/2005, 11/20/1991, 05/15/1991, Additional history exists COVID-19 Vaccine Completed 07/08/2024, , 02/12/2022, Additional history exists Meningococcal B Vaccine Aged Out No l onger eligible based on patient's age to complete this topic Medical Devices Implanted Type Area Sales Account Specialist Device Identifier Shelf Expiration Date Model / Serial / Lot Mesh Srg Prln 6x4in Hrn Ptch Sft Flt Strl Pp - [id number] Implanted:Qty: 1 on 01/23/2018 by Zhen Strickland MD at [facility] N/A: Abdomen CR BARD:DAVOL 04/20/2022 [id number] / / [id number] Procedures Procedure Name Priority Date/Time Associated Diagnosis Comments VA ARTHROCENTESIS ASPIR&/INJ MAJOR JT/BURSA W/O US Routine 12/14/2024 8:45 AM EDT Primary osteoarthritis of right knee from Last 3 Months Results * VA ARTHROCENTESIS ASPIR&/INJ MAJOR JT/BURSA W/O US (12/14/2024 8:45 AM EDT) Narrative ORTHOCINCY - 12/14/2024 8:45 AM EDT Karely Mir, Yard Assistant 12/14/2024 8:56 AM Large Joint Injection/Arthrocentesis: R [...] to verify the correct patient, procedure, equipment, desktop support engineer and site/side marked as required. Patient was prepped and draped in the usual sterile fashion. Gigi Dee ULTRASOUND TECH PROCEDURE/MINOR SURGICAL O RDERABLES Final Result ORTHOCINCY from Last 3 Months Insurance ANTHEM PPO ANTHEM PPO ANTHEM PPO HUGH PPO Advance Directives For more information, please contact: [phone] * Full Code (Latest Code Status on File) Date Activated Date Inactivated Comments 01/25/2018 2:27 PM 01/27/2018 3:56 PM Care Teams Acute Care Nursing Assistant Relationship Specialty Start Date End Date Israel Rosado MD [address] [facility] [address] [place] [id number] PCP - General 02/14/11
--- OUTSIDE RECORDS SUMMARY | 2025-01-13 10:26 | XMS_ITS | Encounter Summary ---
Author Organization [facility] Address [address] [place] [address] Care Team Providers Care Harmonic Analyst Name Role Phone Albert Rosado MD Primary Care Provider [phone] Dhaval Acuña DO Unavailable [phone] Reason for Visit * Reason Onset Date Comments Other 08/16/2023 Encounter Details Date Type Department Care Team (Late st Contact Info) Description 08/16/2023 Telephone [facility] - Diabetes & Endocrine Center, [place] [address] [place] [address] Dhaval Acuña, DO [address] [facility] [place] [address] Other Social History Tobacco Use Types Packs/Day [...] Description 02/15/2025 1:30 PM EDT Appointment [facility] Diabetes [facility] Endocrine Center, [place] [address] [facility] [address] [place] [address] Dhaval Acuña, [address] [facility] [address] [place] [address] documented as of this encounter Visit Diagnoses Not on filedocumented in this encounter Care Teams Harmonic Analyst Relationship Specialty Start Date End Date Albert Rosado MD [address] [facility] [address] [place] [address] PCP - General 08/17/08 Dhaval Acuña, [address] [facility] [address] [place] [address] Endocrinology/Diabetes/[place] bolism 06/05/21 documented as of this encounter
--- OUTSIDE RECORDS SUMMARY | 2025-01-13 10:26 | XMS_ITS | Clinical Summary ---
Author Organization [facility] Address [address] [place] [address] Care Team Providers Care Enamel Burner Name Role Phone Albert Rosado MD Primary Care Provider [phone] Social History Tobacco Use Types Packs/Day Years [...] (2023- season) 2024 INFLUENZA VACCINE 03/24/[address] [place] [address] EMPLOYEE Care Teams Enamel Burner Relationship Specialty Start Date End Date Albert Rosado MD [address] [facility] [address] [place] [id number] PCP - General 07/28/15
--- OUTSIDE RECORDS SUMMARY | 2025-01-13 10:26 | XMS_ITS | Clinical Summary ---
Author Organization [facility] Address [address] [place] [address] Care Team Providers Care Senior Product Integrity Engineer Name Role Phone Unavailable Primary Care Provider [...] Minerals-Vitami ns (CALCIUM-MAGNES IUM-ZINC-D3 PO) Acti ve Naselle 3 1000 MG capsule Take 2 g [...] UKY-Zoster Vaccines (2 of 2) 11/20/2021 09/25/2021 [id number] Vaccine (5 - 2023- season) 2024 02/12/2022, [...]
[2025-01-13 11:28] LABS: Iron 39 ug/dL (37-170)
[2025-01-13 11:38] LABS: Total Iron Binding Capacity 347 ug/dL (265-497)
[2025-01-13 12:05] LABS: Ferritin 63.5 ng/ml (11.1-264)
== END 2025-01-13 23:59 | disposition home or self-care (01) ==
LOC: LAB 10:24
PROVIDERS: PCP Nurse Practitioner; Visit Provider Internal Medicine Medical Oncology
DX: D75.839 Thrombocytosis, unspecified (principal); Z85.42 Personal history of malignant neoplasm of other parts of uterus
CPT/HCPCS: 36415; 82728; 83540; 83550

== ENCOUNTER 2025-03-25 07:45 | Outpatient (CLI) | payer MEDICARE, SELFPAY ==
--- OUTSIDE RECORDS SUMMARY | 2025-02-15 13:30 | XMS_ITS | Encounter Summary ---
Author Organization [facility] Address [address] [place], [place] [address] Care Team Providers Care Fisher Trawl Net Name Role Phone Albert Rosado MD Primary Care Provider [phone] Dhaval Acuña DO Unavailable [phone] Reason for Visit * Reason Comments Diabetes Encounter Details Date Type Department Care Team (Late st Contact Info) Description 02/15/2025 1:30 PM EDT Office Visit [facility] - [facility], [place] [address] [facility] [place] [address] [place] [address] Dhaval Acuña, DO [address] [facility] [address] [place], [place] [id number] Controlled type 2 diabetes mellitus without complication, unspecified whether intermediate insulin use (CMS/HCC) (Primary Dx); Adrenal abnormality; Hypertension, unspecified type; Morbid obesity (CMS/HCC); Other fatigue; Excessive sweating Social History Tobacco Use Types Packs/Day Years [...] on file documented as of this encounter Last Filed Vital Signs Vital Sign Reading Time Taken Comments Blood Pressure 110/60 02/15/2025 1:28 PM EDT Pulse - - Temperature - - Respiratory Rate - - Oxygen Saturation - - Inhaled Oxygen Concentration - - Weight 112.5 kg (248 lb) 02/15/2025 1:28 PM EDT Height 162.6 cm (5' 4 ) 02/15/2025 1:28 PM EDT Body Mass Index 42.57 02/15/2025 1:28 PM EDT documented in this encounter Patient Instructions * Patient Instructions* Dhaval Acuña DO - 02/15/2025 1:30 PM EDT A1c is 6.3. Continue Metformin. Try increase Ozempic 1 mg weekly. Morning adrenal labs soon. Please call with questions or concerns. 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 History of Present Illness: Bijal Brambila is a 65 y.o. female with PMH sig for HTN, HLD, MVP, GERD, and obesity who presents for follow up after adrenalectomy and having weight gain, shakes, sweats. Mrs. Brambila reports around [id number] she was having back pain on R side. Went to PCP. Scans showed adrenal mass. Went to Dr. Villanueva for evaluation. Had multiple labs and AVS. 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 She has not had follow up adrenal labs or imaging since around [id number]. She has type II DM and is on Glimepiride 2 mg daily and Metformin 500 mg daily. A1c 6.7 in 10/2016. CC: type II DM See previous progress notes for full details on DM hx, etc. Interval Update: History of Present Illness Accompanied by her . Bijal Brambila is a 65 year old female with type 2 diabetes, hypertension, obesity, and adrenal abnormality who presents for follow-up and weight management. Her most recent A1c is 6.1, and at the last visit it was 6.3. She is on metformin 500 mg XR twice daily and Ozempic 0.5 mg. No gastrointestinal issues are reported with her current medication regimen. She uses a Dexcom G7 for glucose monitoring but has experienced issues with sensors falling off or malfunctioning, losing two sensors recently. She has not yet contacted the company for replacements. Her blood pressure was measured at 110/60 mmHg. She has completed her annual labs with her primary care provider, including cholesterol levels, and is due for adrenal labs soon, which do not require fasting. Her weight has remained stable with no significant changes noted. Current management includes Ozempic. She is up to date with her eye exams and has an appointment scheduled in April. Medical Hx: Hypertension Adrenal gland disease (HCC) Hyperlipidemia MVP (mitral valve prolapse) Heartburn Ulcer (HCC) Postoperative nausea and vomiting Motion sickness Surgical Hx: ADRENALECTOMY on 2007 TONSILLECTOMY 1966 COLONOSCOPY LAPAROSCOPY UPPER GASTROINTESTINAL ENDOSCOPY CHOLECYSTECTOMY, LAPAROSCOPIC 07/01/2014 Family Hx: Diabetes Father Other Mother Relation Name Status Father Mother Social Hx: Social History Socioeconomic History Marital status: Spouse name: Not on file Number of children: Not on file Years of education: Not on file Highest education level: Not on file Occupational History Not on file Tobacco Use Smoking status: Never Smokeless tobacco: Never Substance and Sexual Activity Alcohol use: No Drug use: No Sexual activity: Not on file Other Topics Concern Not on file Social History Narrative Not on file Social Drivers of Health Financial Resource Strain: Not on file Food Insecurity: Not on file Transportation Needs: Not on file Physical Activity: Not on file Stress: Not on file Social Connections: Unknown (04/01/2023) Received from [facility] Family and Community Support Help with Day-to-Day Activities: Not on file Lonely or Isolated: Not on file Intimate Partner Violence: Unknown (04/01/2023) Received from [facility] Abuse Screen Unsafe at Home or Work/School: Not on file Feels Threatened by Someone?: Not on file Does Anyone Keep You from Contacting Others or Doint Things Outside the Home?: Not on file Physical Sign of Abuse Present: Not on file Housing Stability: Unknown (04/01/2023) Received from [facility] Housing Stability Current Living Arrangements: Not on file Potentially Unsafe Housing Conditions: Not on file Review of Systems: Negative unless noted above Allergies: No Known Allergies Medication List: Current Outpatient Medications Medication Sig Dispense Refill acetaminophen (TYLENOL) 325 mg tablet Take by mouth. amLODIPine (NORVASC) 5 mg tablet Take 5 mg by mouth in the morning. Armodafinil 50 mg Tablet Take 2 Each by mouth in the morning. cholecalciferol (VITAMIN D-3) 400 unit Tablet Take by mouth. Coenzyme Q10 10 mg Capsule Take by mouth. Dexcom G7 Light Fixture Servicer Dexcom G7 Sensor DULoxetine (CYMBALTA) 30 mg Capsule, Delayed Release(E.C.) Take 30 mg by mouth. Fish Oil-Beaumont-3 Fatty Acids 300-1,000 mg Capsule Take 2 g by mouth. hydroCHLOROthiazide (MICROZIDE) 12.5 mg capsule Take 12.5 mg by mouth in the morning. hyoscyamine (LEVBID) 0.375 mg CR tablet lifitegrast (XIIDRA) 5 % Dropperette Apply to eyes in the morning and before bedtime. lisinopriL (ZESTRIL) 5 mg tablet Take 5 mg by mouth in the morning and 5 mg before bedtime. (Patient not taking: Reported on 02/15/2025) losartan (COZAAR) 100 mg Tablet Take 100 mg by mouth in the morning. losartan-hydrochlorothiazide (HYZAAR) 100-12.5 mg Tablet Take by mouth. (Patient not taking: Reported on 02/15/2025) metFORMIN (GLUCOPHAGE-XR) 500 mg XR tablet Take 1 Tablet by mouth 2 times daily. 180 Tablet 1 methocarbamoL (ROBAXIN) 500 mg tablet MULTIVITAMIN (MULTIPLE VITAMIN PO) Take by mouth. omeprazole (PRILOSEC) 20 mg capsule Take 20 mg by mouth. OTHER - SEE EPIC ADMIN INSTRUCTIONS Take 1 Tablet by mouth in the morning. Hypothalmex Dietary Supplement. OTHER - SEE EPIC ADMIN INSTRUCTIONS Take 1 Capsule by mouth in the morning. AD Complex. OTHER - SEE EPIC ADMIN INSTRUCTIONS Take 1-2 Capsules by mouth daily (with dinner). Zymex OTHER - SEE EPIC ADMIN INSTRUCTIONS Take 1 Capsule by mouth in the morning. Advanced Balance Support. pravastatin (PRAVACHOL) 10 mg tablet Take 10 mg by mouth nightly at bedtime. semaglutide (Ozempic) 0.25 mg or 0.5 mg (2 mg/3 mL) Pen Injector 0.5 mg by Subcutaneous route once weekly. 3 mL 5 valsartan (DIOVAN) 40 mg Tablet Take 40 mg by mouth daily. Xdemvy 0.25 % Drops No current facility-administered medications for this visit. Vitals: BP 110/60 Ht 5' 4 (1.626 m) Wt 248 lb (112.5 kg) LMP 12/02/2016 BMI 42.57 kg/m?? Physical Exam Vitals reviewed. Constitutional: Appearance: Normal appearance. HENT: Head: Normocephalic and atraumatic. Eyes: Extraocular Movements: Extraocular movements intact. Conjunctiva/sclera: Conjunctivae normal. Pupils: Pupils are equal, round, and reactive to light. Pulmonary: Effort: Pulmonary effort is normal. No respiratory distress. Abdominal: General: There is no distension. Neurological: General: No focal deficit present. Mental Status: She is alert and oriented to person, place, and time. Mental status is at baseline. Psychiatric: Mood and Affect: Mood normal. Behavior: Behavior normal. Thought Content: Thought content normal. Judgment: Judgment normal. Labs: Reviewed many labs in [facility]. Lab Results Component Value Date CREATININE 0.81 05/07/2023 BUN 13 05/07/2023 NA 140 05/07/2023 K 4.5 05/07/2023 CHLORIDE 105 05/07/2023 CO2 24 05/07/2023 Lab Results Component Value Date GLU 121 (HIGH) 05/07/202307/2021 LDL 91, trig 89 Assessment and Plan: Mrs. Brambila is a 65 y.o. with PMH sig for HTN, HLD, MVP, GERD, and obesity who presents for follow up after adrenalectomy and having weight gain, shakes, sweats. Assessment & Plan Type II DM- on metformin and glimepiride- last A1c 6.7-->7.4-->7.1-->6.2-->6.6-->6.9-->6.5--->6.2-->6.8--->6.6-->6.1 -comprehensively reviewed 14 day CGM report and discussed in detail with pt -CGM interpretation with avg 134, 91% in range, 0% low, 8% high, very steady and good all day, no significant change after meals -based on CGM interpretation I recommend the following changes: Diabetes well-controlled with A1c of 6.1%. Blood glucose levels 91% in range. Current treatment with metformin and Ozempic effective. Discussed increasing Ozempic for weight management. Insurance favors continuing Ozempic over Mounjaro. - Continue metformin 500 mg XR twice daily. - Increase Ozempic to 1 mg pens, adjust dose as needed. - Provide G7 sensor samples, advise contacting Dexcom for replacements if needed. HTN- Essential hypertension Blood pressure well-controlled at 110/60 mmHg. Cont same med Weight gain/obesity- -evaluating for Dimitry's as above--negative -was on Contrave but she stopped, didn't do well and was expensive -Ozempic is also helping but now stable Weight stable. Discussed increasing Ozempic for weight management. If not doing well then, may try Mounjaro. - Increase Ozempic to 1 mg pens, adjust dose as needed. Adrenal abnormality ([facility])- -somewhat confusing hx, records show pheo, then mention Prue's but path report was clear cell adenoma -reviewed many records -she is s/p L adrenalectomy -had previous AVS -having non-specific symptoms now -checked many labs previous visit, no concern of pheo at this time, александр/renin non-concerning, did have elevated salivary cortisol but normal 24 hr urine cortisol -overnight dex sup test normal -from what I can tell her R adrenal was never abnormal on imaging previously -then she had a CT scan for other reasons with normal adrenals -repeat adrenal hormone 05/2018 were without concern -sweating does not appear related -same -bp doing ok and losing weight -no imaging needed at this time Annual adrenal function tests due. Morning tests needed for accurate cortisol levels. - Order morning adrenal function tests. Heat intolerance- continuing evaluation for Prue's as above. So far labs are not concerning. Chronic and stable. Adrenal hormones orders in place again. Labs printed. Excessive sweating- -labs have been non-revealing -sugars are not low during sweating -symptoms continue -no hypoglycemia -adrenal labs previously normal -TFTs normal again -adrenal labs due, ordered and printed Return to Office: 3 mths Dhaval Acuña DO CC: Albert Rosado MD documented in this encounter Plan of Treatment Upcoming Encounters Date Type Department Care Team (Late st Contact Info) Description 06/01/2025 3:15 PM EST Appointment [facility], [place] [address] [facility] [place] [place] [address] [place] [address] Dhaval Acuña DO [address] [facility] [address] [place] [address] Scheduled Orders Name Type Priority Associated Diagnoses Orde r Schedule METANEPHRINES, PLASMA Lab Routine Adrenal abnormality 1 Occurrences starting 02/15/2025 until 02/15/2026 CATECHOLAMINES, PLASMA Lab Routine Adrenal abnormality 1 Occurrences starting 02/15/2025 until 02/15/2026 ALDOSTERONE Lab Routine Adrenal abnormality 1 Occurrences starting 02/15/2025 until 02/15/2026 RENIN Lab Routine Adrenal abnormality 1 Occurrences starting 02/15/2025 until 02/15/2026 ADRENOCORTICOTROPIC HORMONE Lab Routine Adrenal abnormality 1 Occurrences starting 02/15/2025 until 02/15/2026 CORTISOL Lab Routine Adrenal abnormality 1 Occurrences starting 02/15/2025 until 02/15/2026 documented as of this encounter Procedures Procedure Name Priority Date/Time Associated Diagnosis Comments POCT AMB DCA HEMOGLOBIN A1C Routine 02/15/2025 1:45 PM EDT Controlled type 2 diabetes mellitus without complication, unspecified whether filter press supervisor insulin use ([facility]) documented in this encounter Results * (ABNORMAL) POCT AMB DCA HEMOGLOBIN A1C (02/15/2025 1:45 PM EDT) Hgb A1C 6.1(A) 4.0 - 5.6 % 02/15/2025 1:45 PM EDT Dhaval Acuña DO AMB POINT OF CARE Final Resul t documented in this encounter Visit Diagnoses Diagnosis Controlled type 2 diabetes mellitus without complication, unspecified whether intermediate insulin use- Primary Adrenal abnormality Unspecified disorder of adrenal glands Hypertension, unspecified type Morbid obesity (CMS/[facility]) Morbid obesity Other fatigue Excessive sweating Generalized hyperhidrosis documented in this encounter Care Teams Fisher Trawl Net Relationship Specialty Start Date End Date Albert Rosado MD [address] [place] [address] PCP - General 08/17/08 Dhaval Acuña DO [address] [place] [address] Endocrinology/Diabetes/Tiline bolism 06/05/21 documented as of this encounter
--- OUTSIDE RECORDS SUMMARY | 2025-03-25 07:49 | XMS_ITS | Clinical Summary ---
Author Organization [facility] Address [address] [place] [address] Phone Care Team Providers Care Senior Market Research Analyst Name Role Phone Unavailable Unavailable Conditions or Problems No information available. Medications No information available. Medications Administered No information available. Allergies, Adverse Reactions, Alerts No information available. Results No information available. Plan of Care No information available. Procedures No information available. Vital Signs No information available. Immunizations No information available. Advance Directives No information available.
--- OUTSIDE RECORDS SUMMARY | 2025-03-25 07:50 | XMS_ITS | Clinical Summary ---
Author Organization [facility] Address [address] [place] [address] Care Team Providers Care Honeycomb Decapper Name Role Phone Albert Rosado MD Primary Care Provider [phone] Social History Tobacco Use Types Packs/Day Years [...] e 04/01/2023 Family and Community Support Answer Stanlye e Recorded Help with Day-to-Day Activities Not [...] Health Maintenance Due Date Last Done Comments DXA SCAN 1960 TDAP/TD VACCINES (1 - Tdap) 02/09/1979 MAMMOGRAM 2000 COLOGUARD 02/09/2005 COLON CANCER SCREENING 5 YEAR SIGMOIDOSCOPY 02/09/2005 COLONOSCOPY 02/09/2005 COLORECTAL CANCER SCREENING 02/09/2005 CT COLONOGRAPHY 02/09/2005 FECAL OCCULT BLOOD TEST 02/09/2005 FIT Testing (1 year) 02/09/2005 Pneumococcal Vaccine 50+ (1 of 1 - PCV) 02/09/2010 ZOSTER VACCINE (1 of 2) 02/09/2010 ANNUAL PHYSICAL 08/14/2017 HEPATITIS C SCREENING 08/14/2017 INFLUENZA VACCINE 01/22/2025 COVID-19 Vaccine ( season) 2025 Insurance EMPLOYEE Care Teams Honeycomb Decapper Relationship Specialty Start Date End Date Albert Rosado MD [address] [facility] [address] [place] [address] PCP - General 07/28/15
--- OUTSIDE RECORDS SUMMARY | 2025-03-25 07:50 | XMS_ITS | Clinical Summary ---
Author Organization [facility] Address [address] [place] [address] Care Team Providers Care Powder Truck Driver Name Role Phone Albert Rosado MD Primary Care Provider [phone] Dhaval Acuña DO Unavailable [phone] Allergies No known active allergies Medications acetaminophen (TYLENOL) 325 mg tablet Take by mouth. Activ e cholecalciferol (VITAMIN D-3) 400 unit Tablet Take by mouth. Active Coenzyme Q10 10 mg Capsule Take by mouth. Acti ve DULoxetine (CYMBALTA) 30 mg Capsule, Delayed Release(E.C.) Take 30 mg by mouth. Active Fish Oil-Oldsmar-3 Fatty Acids 300-1,000 mg Capsule Take 2 [...] eyes in the morning and before bedtime. Active Armodafinil 50 mg Tablet Take 2 Each by mouth in the morning. 4 Active OTHER - SEE EPIC ADMIN INSTRUCTIONS Take 1 Tablet by mouth in the morning. Hypothalmex Dietary Supplement. Active OTHER - SEE EPIC ADMIN INSTRUCTIONS Take 1 Capsule by mouth in the morning. AD Complex. Active OTHER - SEE EPIC ADMIN INSTRUCTIONS Take 1-2 Capsules by mouth daily (with dinner). Zymex Active OTHER - SEE EPIC ADMIN INSTRUCTIONS Take 1 Capsule by mouth in the morning. Advanced Balance Support. Active amLODIPine (NORVASC) 5 mg tablet Take 5 mg by mouth in the morning. 4 Active Dexcom G7 Family Life Educator 4 Active losartan (COZAAR) 100 mg Tablet Take 100 mg by mouth in the morning. 4 Active Xdemvy 0.25 % Drops 4 Active lisinopriL (ZESTRIL) 5 mg tablet Take 5 mg by mouth in the morning and 5 mg before bedtime. Active hydroCHLOROthiaz cristobal (MICROZIDE) 12.5 mg capsule Take 12.5 mg by mouth in the morning. Active Dexcom G7 Sensor 5 Active methocarbamoL (ROBAXIN) 500 mg tablet 5 Active metFORMIN (GLUCOPHAGE-XR) 500 mg XR tabletIndication s:Controlled type 2 diabetes mellitus without complication, unspecified whether terminal computer operator insulin use Take 1 Tablet by mouth 2 times daily. 180 Tablet 1 5 Active valsartan (DIOVAN) 40 mg Tablet Take 40 mg by mouth daily. Active semaglutide (Ozempic) 1 mg/dose (4 mg/3 mL) Pen InjectorIndicati ons:Controlled type 2 diabetes mellitus without complication, unspecified whether halfway insulin use 1 mg by Subcutaneous route once weekly. 3 mL 5 5 Active Active Problems Problem Noted Date Diagnosed Date Adrenal abnormality 10/16/2023 Encounters Date Type Department Care Team Description 02/15/2025 1:30 PM EDT Office Visit [facility] [place] [facility] - [facility], [address] [place] [address] Dhaval Acuña, DO Controlled type 2 diabetes mellitus without complication, unspecified whether terminal computer operator insulin use (CMS/HCC) (Primary Dx); Adrenal abnormality; Hypertension, unspecified type; Morbid obesity (CMS/HCC); Other fatigue; Excessive sweating from Last 3 Months Social History Tobacco [...] Mass Index 42.57 02/15/2025 1:28 PM EDT Plan of Treatment Upcoming Encounters Date Type Department Care Team (Late st Contact Info) Description 06/01/2025 3:15 PM EST Appointment [facility], [place] [address] [facility] [address] [place] [id number] Dhaval Acuña, 1954 [facility] [address] [place], [place] [id number] Health Maintenance Due Date Last Done Comments Cologuard 1960 Colonoscopy 1960 Colorectal Cancer Screening 1960 Diabetes Mellitus Foot Care (Yearly) 1960 FIT 1960 Hepatitis C Virus (HCV) Screening 02/09/1981 Breast Cancer Screening 02/09/2010 Pneumococcal Vaccine: 50+ Ye ars (1 of 1 - PCV) 02/09/2010 RSV Vaccines (1 - Risk 60-74 years 1-dose series) 2020 Zoster-RZV(Shingrix) (2 of 2) 11/20/2021 09/25/2021 Lipid Monitoring 05/07/2024 05/07/2023, 09/05/2018 BMI Counseling 06/24/2024 Depression Screening 06/24/2024 Diabetes Mellitus Microalbum in (Yearly) 06/24/2024 05/07/2023, 09/10/2022, 09/05/2018 Renal Monitoring 06/24/2024 05/07/2023, 07/2018, 09/05/2018, Additional history exists Advance Care Planning 02/09/2025 Fall Risk Assessment 02/09/2025 Osteoporosis Screening 02/09/2025 COVID-19 Vaccine (2023-2 5 season) 2025 07/08/2024, 05/14/2023, 02/12/2022, Additional history exists Influenza Vaccination (#1) 02/22/202505/05, 04/19/2023, 04/04/2021, Additional history exists Diabetes Mellitus Eye Exam (Yearly) 05/28/2025 05/28/2024, 05/28/2024, 09/27/2022 Diabetes A1c Monitoring 08/18/2025 02/16/20, 10/14/2024, 06/02/2024, Additional history exists Tetanus Vaccination (Every 1 0 Years) 11/09/2026 11/09/2016, 04/03/2011 Lipid Screening Discontinued 05/07/2023, 09/05/2018 Influenza Vaccination (Yearly) Discontinued 1 07/05/2023, 04/19/2023, 04/04/2021, Additional history exists Procedures Procedure Name Priority Date/Time Associated Diagnosis Comments POCT AMB DCA HEMOGLOBIN A1C Routine 02/15/2025 1:45 PM EDT Controlled type 2 diabetes mellitus without complication, unspecified whether terminal computer operator insulin use ([facility]) AMB REFERRAL TO OPHTHALMOLOGY Routine 05/28/2024 3:40 PM EST ALBUMIN, URINE CREATININE/RATIO Routine 05/07/2023 8:45 AM EST Controlled type 2 diabetes mellitus without complication, unspecified whether terminal computer operator insulin use COMPREHENSIVE METABOLIC PANEL Routine 05/07/2023 8:45 AM EST Controlled type 2 diabetes mellitus without complication, unspecified whether halfway insulin use LIPID PROFILE Routine 05/07/2023 8:45 AM EST Controlled type 2 diabetes mellitus without complication, unspecified whether terminal computer operator insulin use from Last 3 Months or Most Recently Relevant to Health Maintenance Results * (ABNORMAL) POCT AMB DCA HEMOGLOBIN A1C (02/15/2025 1:45 PM EDT) Hgb A1C 6.1(A) 4.0 - 5.6 % 02/15/2025 1:45 PM EDT us Dhaval Acuña DO AMB POINT OF CARE Final Resul t * AMB REFERRAL TO OPHTHALMOLOGY (05/28/2024 3:40 PM EST) us Dhaval Acuña DO OUTPATIENT REFERRAL ORDERABLE S Final Result * ALBUMIN, URINE CREATININE/RATIO (05/07/2023 8:45 AM EST) Creatinine, Ur 45.7 20.0 - 310.0 mg/dL [facility] Alb, Ur 0.50 mg/dL [facility] APPRENTICE INSTRUMENT TECHNICIAN [facility] Alb Creat Ratio 11 0 - 30 mg/g creat [facility] Comment: Category Result (mg/ [...] Dhaval Acuña DO URINE ORDERABLES Final Result Performing Organization Address City/State/RUST Co de Phone Number [facility] [address] * LIPID PROFILE (05/07/2023 8:45 AM EST) Cholesterol 148 125 - 199 mg/dL [facility] Comment: TOTAL CHOLESTEROL INTERPRETATION: Less than 200 mg/dL Desireable 200-239 mg/dL Borderline Greater or Equal to 240 mg/dL High LDL Calculated 80 0 - 100 mg/dL [facility] Comment: LDL CHOLESTEROL INTERPRETATION: Less than 100 mg/dL Optimal 100-129 mg/dL Near optimal/above optimal 130-159 mg/dL Borderline High 160-189 mg/dL High Greater or Equal to 190 mg/dL Very High HDL 44 40 - 180 mg/dL [facility] Comment: HDL CHOLESTEROL INTERPRETATION: Less than 40 mg/dL Low Greater than 60 mg/dL Desirable Triglycerides 120 0 - 149 mg/dL [facility] Comment: TOTAL TRIGLYCERIDE INTERPRETATION: Less than 150 mg/dL Normal 150-199 mg/dL Borderline HIgh 200-499 mg/dL High Greater or Equal to 500 mg/dL Very High NONHDL Calculated 104 0 - 129 mg/dL [facility] Comment: NON-HDL INTERPRETATION: Less than 130 mg/dL Desirable 130-159 mg/dL Above Desirable 160-189 mg/dL Borderline High 190-219 mg/dL High Greater than or equal to 220 mg/dL Very High Serum (Serum) 05/07/2023 8:4 5 AM EST 05/07/2023 4:43 PM EST Dhaval Acuña DO CHEMISTRY ORDERABLES Final Re sult [facility] [address] * (ABNORMAL) COMPREHENSIVE METABOLIC PANEL (05/07/2023 8:45 AM EST) Sodium 140 135 - 146 mmol/L [facility] Potassium 4.5 3.5 - 5.1 mmol/L [facility] Chloride 105 98 - 110 mmol/L [facility] CO2 24 22 - 29 mmol/L [facility] Anion Gap 11 5 - 13 mmol/L [facility] Comment:Anion gap calculatio n does not include potassium (K+) value. BUN 13 7 - 25 mg/dL [facility] Creatinine 0.81 0.50 - 1.20 mg/dL [facility] Glucose 121(H) 71 - 99 mg/dL [facility] Comment:Reference range (71- 99 mg/dL) refers only to fasting samples, and does not apply to non-fasting samples. eGFR CKD-EPI 2020 82 See Note [facility] Comment: eGFR calculated with [...] 2.1 [facility] BUN/Creatinine Ratio 16 [facility] Serum (Serum) 05/07/2023 8:4 5 AM EST 05/07/2023 4:43 PM EST us Dhaval Acuña DO CHEMISTRY ORDERABLES Final Re sult [facility] [address] from Last 3 Months or Most Recently Relevant to Health Maintenance Insurance ANTHEM ANTHEM Care Teams Powder Truck Driver Relationship Specialty Start Date End Date Albert Rosado MD [address] [facility] [address] [place] [address] PCP - General 08/17/08 Dhaval Acuña, 1954 [facility] [place] [address] Endocrinology/Diabetes/[place] bolism 06/05/21
--- OUTSIDE RECORDS SUMMARY | 2025-03-25 07:50 | XMS_ITS | Clinical Summary ---
Author Organization [facility] Address [facility] [place] [place] [address] Care Team Providers Care Admissions Consultant Name Role Phone Albert Rosado MD Primary Care Provider [phone] Source Comments This information has been disclosed [...] therelease of HIV test results or diagnoses. [id number] Active Problems Problem Noted Date Diagnosed [...] of Treatment Not on file Care Teams Admissions Consultant Relationship Specialty Start Date End Date Albert Rosado MD [address] [facility] [address] [place] [address] PCP - General 08/26/07
--- OUTSIDE RECORDS SUMMARY | 2025-03-25 07:50 | XMS_ITS | Encounter Summary ---
Author Organization [facility] Address [address] [place] [address] Care Team Providers Care Paleology Teacher Name Role Phone Albert Rosado MD Primary Care Provider [phone] Dhaval Acuña DO Unavailable [phone] Reason for Visit * Reason Comments Medications Refill Encounter Details Date Type Department Care Team (Late st Contact Info) Description 12/16/2020 Refill [facility], [place] [address] [place] [address] [address] [place] [phone] Dhaval Acuña, DO [address] [facility] [place] [address] Medications Refill Social History Tobacco Use Types [...] Description 06/01/2025 3:15 PM EST Appointment [facility], [place] [address] [facility] [address] [place] [address] Dhaval Acuña, 1954 [facility] [address] [place] [id number] documented as of this encounter Visit Diagnoses Diagnosis Controlled type 2 diabetes mellitus without complication, unspecified whether rn long term care insulin use documented in this encounter Care Teams Paleology Teacher Relationship Specialty Start Date End Date Albert Rosado MD [address] [facility] [address] [place] [address] PCP - General 08/17/08 Dhaval Acuña, 1954 [facility] [address] [place] [id number] Endocrinology/Diabetes/[place] bolism 06/05/21 documented as of this encounter
--- OUTSIDE RECORDS SUMMARY | 2025-03-25 07:50 | XMS_ITS | Encounter Summary ---
Author Organization [facility] Address [address] [place] [address] Care Team Providers Care Incident Response Analyst Name Role Phone Albert Rosado MD Primary Care Provider [phone] Dhaval Acuña DO Unavailable [phone] Reason for Visit * Reason Onset Date Comments Other 08/16/2023 Encounter Details Date Type Department Care Team (Late st Contact Info) Description 08/16/2023 Telephone [facility] - [facility], [place] [address] [place] [address] Dhaval Acuña, DO [address] [facility] [place] [address] Other Social History Tobacco Use Types Packs/Day [...] Description 06/01/2025 3:15 PM EST Appointment [facility], [place] [address] [facility] [address] [place] [address] Dhaval Acuña, 1954 [facility] [address] [place] [address] documented as of this encounter Visit Diagnoses Not on filedocumented in this encounter Care Teams Incident Response Analyst Relationship Specialty Start Date End Date Albert Rosado MD [address] [facility] [address] [place] [address] PCP - General 08/17/08 Dhaval Acuña, 1954 [facility] [address] [place] [address] Endocrinology/Diabetes/[place] bolism 06/05/21 documented as of this encounter
--- OUTSIDE RECORDS SUMMARY | 2025-03-25 07:50 | XMS_ITS | Clinical Summary ---
Author Organization [facility] Address [address] [place] [address] Phone Care Team Providers Care Yard Hand Name Role Phone Israel Rosado MD Primary Care Provider [phone] Allergies No known active allergies Medications omeprazole [...] hernia, without obstruction or gangre ne 01/24/2018 Surgical History Surgery Date Site/Laterality Comments ADRENALECTOMY on 2007 TONSILLECTOMY 06/24/1965 - 06/23/1966 COLONOSCOPY LAPAROSCOPY UPPER GASTROINTESTINAL ENDOSCOPY CHOLECYSTECTOMY, LAPAROSCOPIC 07/01/2014 N/A LAPAROSCOPIC CHOLECYSTECTOMY LYSIS OF ADHESIONS; Surgeon: Zhen Strickland MD; Location: [facility] MAIN OR; Service: General HYSTERECTOMY 06/24/2014 - 06/23/2015 CARPAL TUNNEL RELEASE VENTRAL HERNIA REPAIR 01/23/2018 N/A OPEN INCISIONAL VENTRAL HERNIA REPAIR WITH ONLAY MESH; Surgeon: Zhen Strickland MD; Location: [facility] MAIN OR; Service: General Medical devices from [...] 09/25/2024 8:58 AM EDT Plan of Treatment Upcoming Encounters Date Type Department Care Team (Late st Contact Info) Description 03/31/2025 8:00 [place] [address] Lloyd Gil PA-C [address] [place] [address] Health Maintenance Due Date Last Done Comments [...] 2020 Zoster (2 of 2) 11/20/2021 09/25/2021 Bone Density Screening 02/09/2025 COVID-19 Vaccine ( season) 2025 07/08/2024, 05/14/2023, 02/12/2022, Additional history exists Influenza Vaccine (#1) 2025 , 04/19/2023, 04/04/2021 DTaP/TDaP/Td (3 - Td or Tdap) 11/09/2026 11/09/2016, 04/03/2011, 07/17/2006, Additional history exists Hepatitis B Vaccine Completed 01/15/2005, 11/20/1991, 05/15/1991, Additional history exists Meningococcal B Vaccine Aged Out No l onger eligible based on patient's age to complete this topic Medical Devices Implanted Type Area Paperboard Boxes Estimator Device Identifier Shelf Expiration Date Model / Serial / Lot Mesh Srg Prln 6x4in Hrn Ptch Sft Flt Strl Pp - [id number] Implanted:Qty: 1 on 01/23/2018 by Zhen Strickland MD at [facility] N/A: Abdomen CR BARD:DAVOL 04/20/2022 [id number] / / [id number] Insurance [employer] PPO ANTHEM PPO ANTHEM PPO ANTHEM PPO Advance Directives For more information, please contact: [phone] * Full Code (Latest Code Status on File) Date Activated Date Inactivated Comments 01/25/2018 2:27 PM 01/27/2018 3:56 PM Care Teams Yard Hand Relationship Specialty Start Date End Date Israel Rosado MD [address] [facility] [address] [place] [address] PCP - General 02/14/11
--- OUTSIDE RECORDS SUMMARY | 2025-03-25 07:50 | XMS_ITS | Clinical Summary ---
Author Organization [facility] Address [address] [facility] [address] [place] [address] Phone Care Team Providers Care Graphics Editor Name Role Phone Blanca Cote Conditions or Problems Problem Name Problem Code Onset Date Status Entry Date Provider Comment Standard Description Annotate ENCOUNTER FOR OTHER SPECIFIED SURGICAL AFTERCARE Z48.89 (ICD-10-CM) Active Mary Griffin MD Encounter for other specified surgical aftercare CARPAL TUNNEL SYNDROME, LEFT UPPER LIMB G56.02 (ICD-10-CM) Active Landen Josep Carpal tunnel syndrome, left upper limb CARPAL TUNNEL SYNDROME, RIGHT 70714233 (SNOMED CT) Active Landen Josep Carpal tunnel syndrome OVERWEIGHT 657246238 (SNOMED CT) Active Bijal Armas MA Overweight CARPAL TUNNEL SYNDROME 40316795 (SNOMED CT) Active Mary Griffin MD Carpal tunnel syndrome OBESE 211113969 (SNOMED CT) Active Mary Griffin MD Obesity Medications Medication Instructions Start Date Stop Date Generic Name NDC Provider METHOCARBAMOL 500 MG TABS 4 METHOCARBAMOL [id number] Mary Griffin MD CONTRAVE 8-90 MG [id number] 4 NALTREXONE-BUPRO PION HCL [id number] Mary Griffin MD CLOTRIMAZOLE-BETA METHASONE 1-0.05 % CREA 4 CLOTRIMAZOLE-BET AMETHASONE [id number] Mary Griffin MD AMOXICILLIN-POT CLAVULANATE 875-125 MG TABS 4 AMOXICILLIN-POT CLAVULANATE [id number] Mary Griffin MD PRAVASTATIN SODIUM 20 MG TABS 8 PRAVASTATIN SODIUM [id number] Mary Griffin MD OMEPRAZOLE 20 MG CPDR 8 OMEPRAZOLE [id number] Mary Griffin MD METFORMIN HCL 500 MG TABS 8 METFORMIN HCL [id number] Mary Griffin MD LOSARTAN POTASSIUM-HCTZ 100-12.5 MG TABS 8 LOSARTAN POTASSIUM-HCTZ [id number] Mary Griffin MD GLIMEPIRIDE 2 MG TABS 8 GLIMEPIRIDE [id number] Mary Griffin MD DULOXETINE HCL 30 MG CPEP 8 DULOXETINE HCL [id number] Mary Griffin MD DEXAMETHASONE 0.5 MG TABS 2 DEXAMETHASONE [id number] Mary Griffin MD CEFUROXIME AXETIL 500 MG TABS 3 CEFUROXIME AXETIL [id number] Mary Griffin MD Medications Administered No information [...]
--- OUTSIDE RECORDS SUMMARY | 2025-03-25 07:50 | XMS_ITS | Clinical Summary ---
Author Organization [facility] Address [address] [place] [address] Care Team Providers Care Flaker Tender Name Role Phone Unavailable Primary Care Provider [...] Minerals-Vitami ns (CALCIUM-MAGNES IUM-ZINC-D3 PO) Acti ve [place] 3 1000 MG capsule Take 2 g [...] Health Maintenance Due Date Last Done Comments [facility]-Bone Density Scan 1960 [facility]-Depression Screening 1960 [facility]-Infant/Child/Adol SDOH Screenings 1960 [facility]- SDOH Screenings 02/09/1978 [facility]-Adult SDOH Screenings 02/09/1978 [facility]-Pap Smear 02/09/1981 [facility]-Cervical Cancer Screening 02/09/1990 [facility]-HPV/Cotest 02/09/1990 CT Colonography 02/09/2005 Colonoscopy 02/09/2005 FIT-DNA 02/09/2005 FIT 02/09/2005 FOBT 02/09/2005 Sigmoidoscopy 02/09/2005 [facility]-Colorectal Cancer Screening 02/09/2005 [facility]-Pneumococcal Vaccine: 50+ Years (1 of 1 - PCV) 02/09/2010 [facility]-Zoster Vaccines (2 of 2) 11/20/2021 09/25/2021 [id number] Vaccine ( - season) 2025 02/12/2022, 04/25/2021, 08/10/2020, Additional history exists [facility]-Influenza Vaccine (#1) 02/22/202504/04, 04/28/2002, 04/28/2001 [facility]-DTaP,Tdap,and Td Vaccines (3 - Td or Tdap) 11/09/2026 11/09/2016, 04/03/2011, 07/17/2006, Additional history exists [facility]-RSV Vaccine: 60+ Years or (1 - 1-dose 75+ series) 02/09/2035 HPV Vaccines Aged Out No longer eligi [...]
== END 2025-03-25 23:59 | disposition home or self-care (01) ==
LOC: LAB 07:48
PROVIDERS: PCP Nurse Practitioner; Visit Provider Internal Medicine Endocrinology, Diabetes & Metabolism
DX: E27.9 Disorder of adrenal gland, unspecified (principal)
CPT/HCPCS: 36415; 82024; 82088; 82384; 82533; 83835; 84244

== ENCOUNTER 2025-04-29 09:54 | Outpatient (CLI) | payer MEDICARE, SELFPAY ==
--- OUTSIDE RECORDS SUMMARY | 2025-03-31 07:00 | XMS_ITS | Encounter Summary ---
Author Organization [facility] Address [address] [place] [address] Care Team Providers Care Foam Rubber Curer Name Role Phone Israel Rosado MD Primary Care Provider [phone] Reason for Referral * Surgical (Routine) - AFF Authorized Specialty Diagnoses / Procedures Referred By Contac t Referred To Contact General Surgery Diagnoses Primary osteoarthritis of right knee Primary osteoarthritis of left knee Procedures AMB OC SURGERY COMMUNICATION ORDER Lloyd Gil PA-C [address] [place] [address] Phone: tel: fax: EDG SAME DAY SURGERY [place] [address] Phone: tel: fax: Referral ID Status Reason Start Date Expiration Date Visits Requested Visits Authorized [id number] AFF Authorized 03/31/2025 03/31/2026 1 1 * Physical Therapy (Routine) - Pending Review Specialty Diagnoses / Procedures Referred By Contac t Referred To Contact Physical Therapy Diagnoses Primary osteoarthritis of right knee Primary osteoarthritis of left knee Lloyd Gil PA-C [address] [place] [address] Phone: tel: fax: Referral ID Status Reason Start Date Expiration Date V isits Requested Visits Authorized [id number] Pending Review 03/31/2025 03/31/2026 1 1 Question [...] EXTREMITY RIGHT WO CONTRAST Lloyd Gil PA-C [address] [place] [address] Phone: tel: fax: Referral ID Status Reason Start Date Expiration Date Visits Re quested Visits Authorized [id number] Closed 03/31/2025 03/31/2026 1 1 Reason for Visit * Reason Comments Injections Pain Follow-up Follow-up Pain Injections Encounter Details Date Type Department Care Team (Latest Contact Info) Description 03/31/2025 8:00 [place] [address] Lloyd Gil PA-C [address] [place] [address] Primary osteoarthritis of right knee (Primary Dx); [...] from the original note were not included. [address] [phone] [place], [place] [phone] [place], [place] Bijal Brambila 1960 Date of Visit: [...] is Dr. Murcia. Please note that this die turner was created using voice recognition software. Any errors are unintentional, and may be due to voice recognition die turner. Cosigned by Arnav Murcia MD at 03/31/2025 3:07 PM EDT documented in this encounter Plan of Treatment Upcoming Encounters Date Type Department Care Team (Latest Contact Info) Description 05/03/2025 10:00 AM EST Appointment EDG PRE-ADMIT TESTING [facility] [address]. [place] [phone] 05/12/2025 11:15 [place] [address] Arnav Murcia MD [address] [place] [address] 05/17/2025 12:30 PM EST Hospital Encounter [facility] [address] [place] [address] Arnav Murcia MD [address] [place] [phone] 05/17/2025 12:30 PM EST - 05/17/2025 2:40 PM EST Surgery [facility] [address] [place] [address] Arnav Murcia MD [address] [place] [address] ARTHROPLASTY, KNEE, TOTAL, [id number] 06/02/2025 10:30 AM EST Office Visit [facility] [address] [place] [address] Lloyd Gil PA-C [address] [address] 06/29/2025 10:30 AM EST Office Visit [facility] [address] [address] Gigi Dee TIRE MAINTENANCE TECHNICIAN [address] [place] [address] 08/17/2025 9:45 AM EST Office Visit [facility] [address] [phone] Gigi Dee TIRE MAINTENANCE TECHNICIAN [address] [place], [place] [phone] Scheduled Orders Name Type Priority Associated Diagnoses Orde r Schedule CBC WITH DIFF Lab Routine Pre-op testing 1 Occurrences starting 03/31/2025 until 03/31/2026 COMPREHENSIVE METABOLIC PANEL Lab Routine Pre-op testing 1 Occurrences starting 03/31/2025 until 03/31/2026 HEMOGLOBIN A1C Lab Routine Pre-op testing History of familial combined hyperlipidemia 1 Occurrences starting 03/31/2025 until 03/31/2026 PT / INR Lab Routine Pre-op testing History of familial combined hyperlipidemia 1 Occurrences starting 03/31/2025 until 03/31/2026 Scheduled Procedures Name Priority Associated Diagnoses Date/Ti me ARTHROPLASTY, KNEE, TOTAL, [id number] Primary osteoarthritis of right knee 05/17/2025 12:30 PM EST Scheduled Referrals Name Type Priority Associated Diagnoses Orde r Schedule AMB REFERRAL TO PHYSICAL THERAPY Outpatient Referral Routine Primary osteoarthritis of right knee Primary osteoarthritis of left knee Ordered: 03/31/2025 documented as of this encounter Results * CT LOWER EXTREMITY RIGHT WO CONTRAST [...] AM CLINICAL HISTORY: M17.11-Unilateral primary osteoarthritis, right qllo-EHP-38-CM M17.12-Unilateral primary osteoarthritis, left hwea-GPQ-85-CM COMPARISON: None. PROCEDURE COMMENTS: Multidetector CT with [...] AM CLINICAL HISTORY: M17.11-Unilateral primary osteoarthritis, right czjv-YGN-21-CM M17.12-Unilateral primary osteoarthritis, left ohwe-XPT-09-CM COMPARISON: None. PROCEDURE COMMENTS: Multidetector CT with [...] of the ordering clinician. Lloyd Gil PA-C IMUri CT ORDERABLES Final Res ult documented in [...] 2024 documented in this encounter Care Teams Foam Rubber Curer Relationship Specialty Start Date End Date Israel Rosado MD [address] [place] [address] [place] [address] [phone] PCP - General 02/14/11 documented as of this encounter
--- OUTSIDE RECORDS SUMMARY | 2025-04-27 09:39 | XMS_ITS | Encounter Summary ---
Author Organization [facility] [place] [address] Care Team Providers Care Field Representative/Health Education Name Role Phone Israel Rosado MD Primary Care Provider [phone] Reason for Referral * MRI/CAT Scan (Routine) - Closed Specialty Diagnoses / Procedures Referred By Contac t Referred To Contact Radiology Diagnoses Primary osteoarthritis of right knee Primary osteoarthritis of left knee Procedures CT LOWER EXTREMITY RIGHT WO CONTRAST Lloyd Gil PA-C [address] [place] [address] Phone: tel: fax: Referral ID Status Reason Start Date Expiration Date Visits Re quested Visits Authorized [id number] Closed 03/31/2025 03/31/2026 1 1 Reason for Visit * MRI/CAT Scan (Routine) - Closed Specialty Diagnoses / Procedures Referred By Contac t Referred To Contact Radiology Diagnoses Primary osteoarthritis of right knee Primary osteoarthritis of left knee Procedures CT LOWER EXTREMITY RIGHT WO CONTRAST Lloyd Gil PA-C [address] [place] [address] Phone: tel: fax: Referral ID Status Reason Start Date Expiration Date Visits Re quested Visits Authorized [id number] Closed 03/31/2025 03/31/2026 1 1 Encounter Details Date Type Department Care Team (Latest Contact Info) Description 04/27/2025 9:39 AM EST - 04/27/2025 11:59 PM EST Hospital Encounter [facility] [address] [place] [address] Lloyd Gil PA-C [address] [facility] [place] [address] Primary osteoarthritis of right knee; Primary osteoarthritis of left knee Discharge Disposition: Home or Self Care Social History Tobacco Use Types Packs/Day Years [...] on file documented as of this encounter Medications at Time of Discharge acetaminophen (TYLENOL) Oral Tab Take by mouth every 4 hours as needed for Pain. cholecalciferol, vitamin D3, 400 unit Oral Tablet Take 1 Tab by mouth daily. ciprofloxacin HCl (CIPRO) 500 mg Oral Tablet Take by mouth every 12 hours. Coenzyme Q10 (CO Q-10) 10 mg Oral Capsule Take by mouth daily. cycloSPORINE (RESTASIS) 0.05 % ophthalmic emulsion Place into both eyes every 12 hours. DULoxetine (CYMBALTA) 30 mg Oral Capsule, Delayed Release(E.C.) Take 30 mg by mouth daily. fish oil omega-3 fatty acids 300-1,000 mg Oral Capsule Take 2 g by mouth daily. fUROsemide (LASIX) 20 mg Oral Tablet Take by mouth every 12 hours. glimepiride (AMARYL) 2 mg Oral Tablet Take 2 mg by mouth daily. hydrocortisone (ANUSOL-HC) [address] rectally every 6 hours as needed for Hemorrhoids. hyoscyamine (LEVBID) 0.375 mg Oral Tablet Sustained Release 12 hr Take 0.375 mg by mouth every 12 hours as needed for Cramping. ibuprofen (ADVIL;MOTRIN) 200 mg Oral Tablet Take 200 mg by mouth every 8 hours as needed for Pain. lisinopriL (PRINIVIL;ZESTRIL ) 10 mg Oral Tablet Take 10 mg by mouth daily. losartan-hydrochl orothiazide (HYZAAR) 100-12.5 mg Oral Tablet Take 1 Tab by mouth daily. metFORMIN (GLUCOPHAGE) 500 mg Oral Tablet Take by mouth 2 times daily. methocarbamol (ROBAXIN) 500 mg Oral Tablet Take 500 mg by mouth 2 times daily. MULTI-VITAMIN ORAL Take by mouth daily. omeprazole (PRILOSEC) 20 mg Take 20 mg by mouth daily. pravastatin (PRAVACHOL) 20 mg Oral Tablet Take 20 mg by mouth daily. rosuvastatin (CRESTOR) 10 mg tablet Take 10 mg by mouth daily. semaglutide (OZEMPIC) 0.25 mg or 0.5 mg(2 mg/1.5 mL) SubQ Pen Injector Subcutaneous (Inject under the skin) 0.5 mg once a week. valsartan (DIOVAN) 40 mg Oral Tablet Take 40 mg by mouth daily. documented as of this encounter Discharge Disposition Disposition Code Departure Means Destination Home or Self Care documented in this encounter Plan of Treatment Upcoming Encounters Date Type Department Care Team (Latest Contact Info) Description 05/03/2025 10:00 AM EST Appointment EDG PRE-ADMIT TESTING [facility] [place] [address] 05/12/2025 11:15 AM EST [facility] [address] [place] [address] Arnav Murcia MD [address] [place] [address] 05/17/2025 12:30 PM EST Hospital Encounter [facility] [address] [place] [address] Arnav Murcia MD [address] [place] [address] 05/17/2025 12:30 PM EST - 05/17/2025 2:40 PM EST Surgery [facility] [address] [place] [address] [address] Arnav Murcia MD [address] [place] [address] ARTHROPLASTY, KNEE, TOTAL, [id number] 06/02/2025 10:30 AM EST Office Visit [facility] [address] [place], [place] [id number] Lloyd Gil PA-C [address] [place] [address] 06/29/2025 10:30 AM EST Office Visit [facility][1] [address] [place] [address] [id number] Gigi Dee MILL SUPERVISOR [address] [place] [address] 08/17/2025 9:45 AM EST Office Visit [facility][1] [address] [place] [address] [address] [place], [place] [phone] Gigi Dee MILL SUPERVISOR [address] [place], [place] [id number] Scheduled Procedures Name Priority Associated Diagnoses Date/Ti me ARTHROPLASTY, KNEE, TOTAL, [id number] Primary osteoarthritis of right knee 05/17/2025 12:30 PM EST documented as of this encounter Goals Goal Patient Goal Type Associated Problems Recent Progress Patient-Stated? Author Autogenera thomas Goal Care Plan Autogenerated Problem No Denise Herring, Clerical Staff documented as of this encounter Procedures Procedure Name Priority Date/Time Associated Diagnosis Comments CT LOWER EXTREMITY RIGHT WO CONTRAST Routine 04/27/2025 10:12 AM EST Primary osteoarthritis of right knee Primary osteoarthritis of left knee documented in this encounter Results * CT LOWER EXTREMITY [...] AM CLINICAL HISTORY: M17.11-Unilateral primary osteoarthritis, right wyiz-OGM-56-CM M17.12-Unilateral primary osteoarthritis, left olmg-VBE-83-CM COMPARISON: None. PROCEDURE COMMENTS: Multidetector CT with [...] AM CLINICAL HISTORY: M17.11-Unilateral primary osteoarthritis, right qpwj-PRX-77-CM M17.12-Unilateral primary osteoarthritis, left tqpw-JGI-76-CM COMPARISON: None. PROCEDURE COMMENTS: Multidetector CT with [...] MAR Action Action Date Dose Rate Site iopamidoL (ISOVUE-370) 370 mg iodine /mL (76 %) injection (LOW) 75 mL 75 mL, Intravenous, ONCE PRN, 1 dose, Starting on Sat04/27/25 at 1012, Until Sat04/27/25 at 1013, Radiography/Imaging, Radiology Procedure, VESICANT , CT (Contrasts) Given 04/27/2025 10:13 AM EST 75 mL sodium chloride 0.9% syringe 10 mL 10 mL, Intravenous, ONCE PRN, 1 dose, Starting on Sat04/27/25 at 1013, Until Sat04/27/25 at 1013, Line Care, Flush peripheral lines every 12 hours, central lines every 8 hours, and after IV medication, CT (Contrasts) Given 04/27/2025 10:13 AM EST 10 mL documented in this encounter Additional Health Concerns Active Problems Noted Date Diagnosed Date Autogenerated Problem 04/01/2025 documented as of this encounter Care Teams Field Representative/Health Education Relationship Specialty Start Date End Date Israel Rosado MD [address] [place] [address] [place] [id number] PCP - General 02/14/11 documented as of this encounter
--- OUTSIDE RECORDS SUMMARY | 2025-04-29 10:00 | XMS_ITS | Clinical Summary ---
Author Organization [facility] Address [address] [place] [address] Care Team Providers Care Manufacturing Plant Controller Name Role Phone Albert Rosado MD Primary Care Provider [phone] Dhaval Acuña DO Unavailable [phone] Allergies No known active allergies Medications acetaminophen (TYLENOL) 325 mg tablet Take by mouth. Activ e cholecalciferol (VITAMIN D-3) 400 unit Tablet Take by mouth. Active Coenzyme Q10 10 mg Capsule Take by mouth. Acti ve DULoxetine (CYMBALTA) 30 mg Capsule, Delayed Release(E.C.) Take 30 mg by mouth. Active Fish Oil-[place]-3 Fatty Acids 300-1,000 mg Capsule Take 2 [...] in the morning. 4 Active Dexcom G7 Explosive Expert 4 Active losartan (COZAAR) 100 mg Tablet [...] 2 diabetes mellitus without complication, unspecified whether long-term insulin use Take 1 Tablet by mouth 2 times daily. 180 Tablet 1 5 Active valsartan (DIOVAN) 40 mg Tablet Take 40 mg by mouth daily. Active semaglutide (Ozempic) 1 mg/dose (4 mg/3 mL) Pen InjectorIndicati ons:Controlled type 2 diabetes mellitus without complication, unspecified whether rat exterminator insulin use 1 mg by Subcutaneous route once weekly. 3 mL 5 5 Active Active Problems Problem Noted Date Diagnosed Date Adrenal abnormality 10/16/2023 Encounters Date Type Department Care Team Description 04/01/2025 Telephone [facility] Diabetes & Endocrine [place], [place] [address] [facility] [address] [place], [place] [address] Dhaval Acuña, DO Other 04/01/2025 Abstract [facility] Diabetes & Endocrine [place], [place] [address] [facility] [address] [place] [place], [place] [address] Dhaval Acuña, DO 03/26/2025 Telephone [facility] Diabetes & Endocrine [place], [address] [place] [address] Dhaval Acuña, Results 02/15/2025 1:30 PM EDT Office Visit [facility] Diabetes & Endocrine [address] [place] [address] Dhaval Acuña, Controlled type 2 diabetes mellitus without complication, unspecified whether long-term insulin use (CMS/HCC) (Primary Dx); Adrenal abnormality; [...] Description 06/01/2025 3:15 PM EST Appointment [facility] Diabetes & Endocrine [address] [place] [address] Dhaval Acuña DO [address] [facility] [address] [place] [address] Health Maintenance Due Date Last Done Comments [...] Assessment 02/09/2025 Osteoporosis Screening 02/09/2025 COVID-19 Vaccine (7 - 2024-2 6 season) 2025 07/08/2024, 05/14/2023, 02/12/2022, Additional history [...] 2 diabetes mellitus without complication, unspecified whether rat exterminator insulin use ([facility]) AMB REFERRAL TO OPHTHALMOLOGY Routine 05/28/2024 3:40 PM EST ALBUMIN, URINE CREATININE/RATIO Routine 05/07/2023 8:45 AM EST Controlled type 2 diabetes mellitus without complication, unspecified whether rat exterminator insulin use COMPREHENSIVE METABOLIC PANEL Routine 05/07/2023 8:45 AM EST Controlled type 2 diabetes mellitus without complication, unspecified whether long-term insulin use LIPID PROFILE Routine 05/07/2023 8:45 AM EST Controlled type 2 diabetes mellitus without complication, unspecified whether long-term insulin use from Last 3 Months or [...] Alb, Ur 0.50 mg/dL [facility] Alb Creat Ratio 11 0 [...] Final Result [facility] [address] * LIPID PROFILE (05/07/2023 8:45 AM EST) Cholesterol 148 125 - 199 mg/dL [facility] Comment: TOTAL CHOLESTEROL INTERPRETATION: Less than 200 mg/dL Desireable 200-239 mg/dL Borderline Greater or Equal to 240 mg/dL High LDL Calculated 80 0 - 100 mg/dL [facility] Comment: LDL CHOLESTEROL INTERPRETATION: Less than 100 mg/dL Optimal 100-129 mg/dL Near optimal/above optimal 130-159 mg/dL Borderline High 160-189 mg/dL High Greater or Equal to 190 mg/dL Very High HDL 44 40 - 180 mg/dL [facility] Comment: HDL CHOLESTEROL INTERPRETATION: Less than 40 mg/dL Low Greater than 60 mg/dL Desirable Triglycerides 120 0 - 149 mg/dL [facility] Comment: TOTAL TRIGLYCERIDE INTERPRETATION: Less [...] ORDERABLES Final Re sult Performing Organization Address [facility] Co de Phone Number [facility] [address] * (ABNORMAL) COMPREHENSIVE METABOLIC PANEL (05/07/2023 8:45 AM EST) Sodium 140 135 - 146 mmol/L [facility] Potassium 4.5 3.5 - 5.1 mmol/L [facility] Chloride 105 98 - 110 mmol/L [facility] CO2 24 22 - 29 mmol/L [facility] Anion Gap 11 5 - 13 mmol/L [facility] Comment:Anion gap calculatio n does [...] LAB Albumin 3.9 3.5 - 5.0 g/dL [facility] Globulin 3.2 2.0 - 3.7 g/dL [facility] Albumin/Globulin Ratio 1.2 1.0 - 2.1 [facility] BUN/Creatinine Ratio 16 [facility] Serum (Serum) 05/07/2023 8:4 5 AM EST 05/07/2023 4:43 PM EST us Dhaval Acuña DO CHEMISTRY ORDERABLES Final Re sult [facility] [address] [place] [address], [facility] from Last 3 Months or Most Recently Relevant to Health Maintenance [place] [address] [place] [address] CHERI Care Teams Manufacturing Plant Controller Relationship Specialty Start Date End Date Albert Rosado MD [address] [place] [address] [place] [address] PCP - General 08/17/08 Dhaval Acuña, [address] [place] [address] Endocrinology/Diabetes/[place] bolism 06/05/21
--- OUTSIDE RECORDS SUMMARY | 2025-04-29 10:00 | XMS_ITS | Clinical Summary ---
Author Organization [facility] Address [address] [facility] [address] [place] [address] Phone Care Team Providers Care Design Engineer Marine Equipment Name Role Phone Blanca Cote Conditions or Problems Problem Name Problem Code Onset Date Status Entry Date Provider Comment Standard Description Annotate ENCOUNTER FOR OTHER SPECIFIED SURGICAL AFTERCARE Z48.89 (ICD-10-CM) Active Mary Griffin MD Encounter for other specified surgical aftercare CARPAL TUNNEL SYNDROME, LEFT UPPER LIMB G56.02 (ICD-10-CM) Active Landen Josep Carpal tunnel syndrome, left upper limb CARPAL TUNNEL SYNDROME, RIGHT 02289162 (SNOMED CT) Active Landen Josep Carpal tunnel syndrome OVERWEIGHT 322656603 (SNOMED CT) Active Bijal Armas MA Overweight CARPAL TUNNEL SYNDROME 86693821 (SNOMED CT) Active Mary Griffin MD Carpal tunnel syndrome OBESE 519276900 (SNOMED CT) Active Mary Griffin MD Obesity Medications Medication Instructions Start Date Stop Date Generic Name NDC Provider METHOCARBAMOL 500 MG TABS 4 METHOCARBAMOL [id number] Mary Griffin MD CONTRAVE 8-90 MG [id number] 4 NALTREXONE-BUPRO PION HCL [id number] Mary Griffin MD CLOTRIMAZOLE-BETA METHASONE 1-0.05 % CREA 4 CLOTRIMAZOLE-BET AMETHASONE [id number] Mary Griffin MD AMOXICILLIN-POT CLAVULANATE 875-125 MG TABS 4 AMOXICILLIN-POT CLAVULANATE [id number] Mary Griffin MD PRAVASTATIN SODIUM 20 MG TABS 8 PRAVASTATIN SODIUM 09529183510 Mary Griffin MD OMEPRAZOLE 20 MG CPDR 8 OMEPRAZOLE [id number] Mary Griffin MD METFORMIN HCL 500 MG TABS 8 METFORMIN HCL [id number] Mary Griffin MD LOSARTAN POTASSIUM-HCTZ 100-12.5 MG TABS 8 [place] POTASSIUM-HCTZ 64337469649 Mary Griffin MD GLIMEPIRIDE 2 MG TABS 8 GLIMEPIRIDE 96334806840 Mary Griffin MD DULOXETINE HCL 30 MG CPEP 8 DULOXETINE HCL 93116580901 Mary Griffin MD DEXAMETHASONE 0.5 MG TABS 2 DEXAMETHASONE [id number] Mary Griffin MD CEFUROXIME AXETIL 500 MG TABS 3 CEFUROXIME AXETIL [id number] Mary Griffin MD Medications Administered No information [...]
--- OUTSIDE RECORDS SUMMARY | 2025-04-29 10:00 | XMS_ITS | Encounter Summary ---
Author Organization [facility] Address [address] [place] [address] Care Team Providers Care Assistant Business Manager Name Role Phone Albert Rosado MD Primary Care Provider [phone] Dhaval Acuña DO Unavailable [phone] Reason for Visit * Reason Onset Date Comments Other 08/16/2023 Encounter Details Date Type Department Care Team (Late st Contact Info) Description 08/16/2023 Telephone [facility] - [facility], [place] [address] [place] [address] Dhaval Acuña, DO [address] [facility]. [address] [place] [address] Other Social History Tobacco Use Types Packs/Day [...] Description 06/01/2025 3:15 PM EST Appointment [facility], [place] [address] [facility] [address] [place] [address] Dhaval Acuña, 1954 [facility] [address] [place] [address] documented as of this encounter Visit Diagnoses Not on filedocumented in this encounter Care Teams Assistant Business Manager Relationship Specialty Start Date End Date Albert Rosado MD [address] [facility] [address] [place] [address] PCP - General 08/17/08 Dhaval Acuña, [address] [facility] [address] [place] [address] Endocrinology/Diabetes/[place] bolism 06/05/21 documented as of this encounter
--- OUTSIDE RECORDS SUMMARY | 2025-04-29 10:00 | XMS_ITS | Encounter Summary ---
Author Organization [facility] Address [address] [place] [address] Care Team Providers Care Paper Handler Name Role Phone Albert Rosado MD Primary Care Provider [phone] Dhaval Acuña DO Unavailable [phone] Reason for Visit * Reason Onset Date Comments Results 03/26/2025 Encounter Details Date Type Department Care Team (Late st Contact Info) Description 03/26/2025 Telephone [facility] - Diabetes [facility] Endocrine [facility], [address] [place] [address] Dhaval Acuña, DO [address] [facility] [place] [address] Results Social History Tobacco Use Types Packs/Day [...] Telephone Encounter - Letitia Mcdonnell MA - 04/01/2025 9:54 AM EDT Got all results earlier today * Telephone Encounter - Vanita Urban - 04/01/2025 9:43 AM EDT RECEIVED LAB RESULTS FROM [facility] VIA FAX IMPORTED AND ATTACHED * Telephone Encounter - Letitia Mcdonnell MA - 03/31/2025 7:12 AM EDT Called [facility] asked them to please send all results * Telephone Encounter - Vanita Urban - 03/30/2025 4:37 PM EDT RECEIVED LAB RESULTS FROM [facility] VIA FAX IMPORTED AND ATTACHED * Telephone Encounter - Dhaval Acuña DO - 03/29/2025 9:22 AM EDT Looks like only one lab of several I ordered. They will prob keep sending more, or can contact themto get them all at once. * Telephone Encounter - Vanita Urban - 03/29/2025 7:51 AM EDT RECEIVED LAB RESULTS FROM [facility] VIA FAX IMPORTED AND ATTACHED * Telephone Encounter - Kellen Zamora MA - 03/26/2025 2:39 PM EDT Non urgent * Telephone Encounter - Vanita Urban - 03/26/2025 2:04 PM EDT RECEIVED LAB RESULTS FROM [facility] VIA FAX IMPORTED AND ATTACHED documented in this encounter Plan of Treatment Upcoming Encounters Date Type Department Care Team (Late st Contact Info) Description 06/01/2025 3:15 PM EST Appointment [facility]3] Diabetes & Endocrine Center, [place] [address] [facility] [address] [place] [address] Dhaval Acuña, 1954 [facility] [address] [place] [address] documented as of this encounter Visit Diagnoses Not on filedocumented in this encounter Care Teams Paper Handler Relationship Specialty Start Date End Date Albert Rosado MD [address] [facility] [address] [place], [place] [id number] PCP - General 08/17/08 Dhaval Acuña, 1954 [facility] [address] [place], [place] [id number] Endocrinology/Diabetes/[place] bolism 06/05/21 documented as of this encounter
--- OUTSIDE RECORDS SUMMARY | 2025-04-29 10:00 | XMS_ITS | Clinical Summary ---
Author Organization [facility] Address [address] [place] [address] Phone Care Team Providers Care Plant Specialist Name Role Phone Israel Rosado MD Primary Care Provider [phone] Allergies No known active allergies Medications omeprazole [...] skin) 0.5 mg once a week. Active valsartan (DIOVAN) 40 mg Oral Tablet Take 40 mg by mouth daily. Active Active Problems Problem Noted Date Diagnosed Date Primary osteoarthritis of right knee 03/31/2025 Primary osteoarthritis of left knee 03/31/2025 Pre-op testing 03/31/2025 Pain in both knees 09/18/2024 Incisional hernia, without obstruction or gangre ne 01/24/2018 Encounters Date Type Department Care Team Description 04/27/2025 9:39 AM [facility] - 04/27/2025 11:59 PM [facility] Hospital Encounter [facility] [address] [place] [address] Lloyd Gil PA-C Primary osteoarthritis of right knee; Primary osteoarthritis of left knee Discharge Disposition: Home or Self Care 04/01/2025 [facility] [address] [address] Tori Maya, Clerical Staff Primary osteoarthritis of right knee (Primary Dx) 03/31/2025 8:00 AM EDT Office Visit [address] [address] Lloyd Gil PA-C Primary osteoarthritis of right knee (Primary Dx); Primary osteoarthritis of left knee; Pre-op testing; History of familial combined hyperlipidemia from Last 3 Months Surgical History Surgery [...] Mass Index 42.91 03/31/2025 8:33 AM EDT Plan of Treatment Upcoming Encounters Date Type Department Care Team (Latest Contact Info) Description 05/03/2025 10:00 AM EST Appointment EDG PRE-ADMIT TESTING [facility] [place] [address] 05/12/2025 11:15 AM [place] [address] Arnav Murcia MD [address] [place] [address] 05/17/2025 12:30 PM EST Hospital Encounter [facility] [address] [place] [id number] Arnav Murcia MD [address] [place] [address] 05/17/2025 12:30 PM EST - 05/17/2025 2:40 PM EST Surgery [facility] [address] [place] [id number] Arnav Murcia MD [address] [place] [address] ARTHROPLASTY, KNEE, TOTAL, [id number] 06/02/2025 10:30 AM EST Office Visit [place] [id number] Lloyd Gil, PA-C [address] [place] [address] 06/29/2025 10:30 AM EST Office Visit [facility] [address] [place] [address] Gigi Dee APRN [address] [place] [address] 08/17/2025 9:45 AM EST Office Visit [facility] [address] [address] Gigi Dee, SPA CONCIERGE [address] [place] [address] Scheduled Procedures Name Priority Associated Diagnoses Date/Ti me ARTHROPLASTY, KNEE, TOTAL, [id number] Primary osteoarthritis of right knee 05/17/2025 12:30 PM EST Health Maintenance Due Date Last Done Comments Wellness Exam Medicare 02/09/1963 Hepatitis C Screening 02/09/1978 Cervical Cancer Screening 02/09/1981 Pap Smear 02/09/1981 HPV/Pap Cotest 02/09/1990 Breast Cancer Screening 2000 Cologuard 02/09/2005 Colon Cancer Screening 02/09/2005 Colonoscopy 02/09/2005 FIT 02/09/2005 Sigmoidoscopy 02/09/2005 Virtual Colonography 02/09/2005 Pneumococcal Vaccine 50+ (1 of 1 - PCV) 02/09/2010 RSV or 60+ (1 - Risk 50-74 years 1-dose series) 02/09/2010 Zoster (2 of 2) 11/20/2021 09/25/2021 Bone Density Screening 02/09/2025 COVID-19 Vaccine (2024- season) 2025 07/08/2024, 05/14/2023, 02/12/2022, Additional history exists Influenza Vaccine (#1) 2025 , 04/19/2023, 04/04/2021 DTaP/TDaP/Td (3 - Td or Tdap) 11/09/2026 11/09/2016, 04/03/2011, 07/17/2006, Additional history exists Hepatitis B Vaccine Completed 01/15/2005, 11/20/1991, 05/15/1991, Additional history exists Meningococcal B Vaccine Aged Out No l onger eligible based on patient's age to complete this topic Goals Goal Patient Goal Type Associated Problems Recent Progress Patient-Stated? Author Autogenera thomas Goal Care Plan Autogenerated Problem No Denise Herring, Clerical Staff Medical Devices Implanted Type Area Wellness Ambassador Device Identifier Shelf Expiration Date Model / Serial / Lot Mesh Srg Prln 6x4in Hrn Ptch Sft Flt Strl Pp - [id number] Implanted:Qty: 1 on 01/23/2018 by Zhen Strickland MD at [facility] N/A: Abdomen CR BARD:DAVOL 04/20/2022 [id number] / / [id number] Procedures Procedure Name Priority Date/Time Associated Diagnosis Comments CT LOWER EXTREMITY RIGHT WO CONTRAST Routine 04/27/2025 10:12 AM EST Primary osteoarthritis of right knee Primary osteoarthritis of left knee from Last 3 Months Results * CT LOWER EXTREMITY RIGHT WO [...] AM CLINICAL HISTORY: M17.11-Unilateral primary osteoarthritis, right edsb-LBT-88-CM M17.12-Unilateral primary osteoarthritis, left doys-RYQ-16-CM COMPARISON: None. PROCEDURE COMMENTS: Multidetector CT with [...] AM CLINICAL HISTORY: M17.11-Unilateral primary osteoarthritis, right dkpv-JBY-00-CM M17.12-Unilateral primary osteoarthritis, left vitd-DTW-15-CM COMPARISON: None. PROCEDURE COMMENTS: Multidetector CT with [...] PA-C IMG CT ORDERABLES Final Res ult from Last 3 Months Additional Health Concerns Active Problems Noted Date Diagnosed Date Autogenerated Problem 04/01/2025 Insurance [employer] MEDICARE PPO MR [employer] MEDICARE PPO MR Advance Directives For more information, please contact: [phone] * Full Code (Latest Code Status on File) Date Activated Date Inactivated Comments 01/25/2018 2:27 PM 01/27/2018 3:56 PM Care Teams Plant Specialist Relationship Specialty Start Date End Date Israel Rosado MD [facility] [address] [place] [address] PCP - General 02/14/11
--- OUTSIDE RECORDS SUMMARY | 2025-04-29 10:00 | XMS_ITS | Clinical Summary ---
Author Organization [facility] Address [address] [place] [address] Phone Care Team Providers Care Cleaners Name Role Phone Unavailable Unavailable Conditions or Problems No information available. Medications No information available. Medications Administered No information available. Allergies, Adverse Reactions, Alerts No information available. Results No information available. Plan of Care No information available. Procedures No information available. Vital Signs No information available. Immunizations No information available. Advance Directives No information available.
--- OUTSIDE RECORDS SUMMARY | 2025-04-29 10:00 | XMS_ITS | Encounter Summary ---
Author Organization [facility] Address [address] [place] [address] Care Team Providers Care Interchange Agent Name Role Phone Albert Rosado MD Primary Care Provider [phone] Dhaval Acuña DO Unavailable [phone] Reason for Visit * Reason Comments Medications Refill Encounter Details Date Type Department Care Team (Late st Contact Info) Description 12/16/2020 Refill [facility] - Diabetes & Endocrine Center, [place] [address] [place] [address] [address] [place] [id number] Dhaval Acuña, DO [address] [facility] [place] [address] Medications Refill Social History Tobacco Use Types [...] Description 06/01/2025 3:15 PM EST Appointment 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 [id number] Endocrinology/Diabetes/[place] bolism 06/05/21 documented as of this encounter
--- OUTSIDE RECORDS SUMMARY | 2025-04-29 10:00 | XMS_ITS | Clinical Summary ---
Author Organization [facility] Address [address] [place] [address] Care Team Providers Care Pot Builder Name Role Phone Unavailable Primary Care Provider [...] Minerals-Vitami ns (CALCIUM-MAGNES IUM-ZINC-D3 PO) Acti ve [place] 3 1000 MG capsule Take 2 g [...] [facility]-Bone Density Scan 1960 [facility]-Depression Screening 1960 [facility]-/Child/Adol SDOH Screenings 1960 [facility]- SDOH Screenings 02/09/1978 [facility]-Adult SDOH Screenings 02/09/1978 [facility]-Pap Smear 02/09/1981 [facility]-Cervical Cancer Screening 02/09/1990 [facility]-HPV/Cotest 02/09/1990 CT Colonography 02/09/2005 Colonoscopy 02/09/2005 FIT-DNA 02/09/2005 FIT 02/09/2005 FOBT 02/09/2005 Sigmoidoscopy 02/09/2005 [facility]-Colorectal Cancer Screening 02/09/2005 [facility]-Pneumococcal Vaccine: 50+ Years (1 of 1 - PCV) 02/09/2010 [facility]-Zoster Vaccines (2 of 2) 11/20/2021 09/25/2021 [id number] Vaccine ( - season) 2025 02/12/2022, 04/25/2021, [...]
--- OUTSIDE RECORDS SUMMARY | 2025-04-29 10:00 | XMS_ITS | Encounter Summary ---
Author Organization [facility] Address [address] [place], [place] [address] Care Team Providers Care Vp Analytics Name Role Phone Albert Rosado MD Primary Care Provider [phone] Dhaval Acuña DO Unavailable [phone] Reason for Visit * Reason Onset Date Comments Other 04/01/2025 Encounter Details Date Type Department Care Team (Late st Contact Info) Description 04/01/2025 Telephone [facility] Diabetes [facility] Endocrine Center, [address] [place] [address] Dhaval Acuña, DO 1954 [facility] [address] [place] [address] Other Social History Tobacco Use Types Packs/Day [...] Telephone Encounter - Letitia Mcdonnell MA - 04/06/2025 8:21 AM EDT Spoke with patient she understood no further questions at this time * Telephone Encounter - Letitia Mcdonnell MA - 04/06/2025 8:15 AM EDT Attempted to call patient several times rings and then cuts off no voice mail * Telephone Encounter - Mere Valiente - 04/06/2025 8:11 AM EDT PLEASE CALL [facility] BACK TO REVIEW LABS * Telephone Encounter - Letitia Mcdonnell MA - 04/01/2025 2:37 PM EDT Left message for patient to call me back * Telephone Encounter - Dhaval Acuña DO - 04/01/2025 2:20 PM EDT Let pt know all adrenal labs were normal, no concerns at this time. * Telephone Encounter - Letitia Mcdonnell MA - 04/01/2025 8:34 AM EDT [facility] documented in this encounter Plan of Treatment Upcoming Encounters Date Type Department Care Team (Late st Contact Info) Description 06/01/2025 3:15 PM EST Appointment [facility] Diabetes [facility] Endocrine Center, [place] [address] [facility] [address] [place] [address] Dhaval Acuña DO [address] [facility] [facility] [address] documented as of this encounter Visit Diagnoses Not on filedocumented in this encounter Care Teams Vp Analytics Relationship Specialty Start Date End Date Albert Rosado MD [address] [place] [address] [place] [id number] PCP - General 08/17/08 Dhaval Acuña DO [address] [place] [address] [facility] [place] [id number] Endocrinology/Diabetes/[place] bolism 06/05/21 documented as of this encounter
--- OUTSIDE RECORDS SUMMARY | 2025-04-29 10:01 | XMS_ITS | Clinical Summary ---
Author Organization [facility] Address [facility] [place] [address] Care Team Providers Care Spark Tester Name Role Phone Albert Rosado MD Primary Care Provider [phone] Source Comments This information has been disclosed [...] therelease of HIV test results or diagnoses. [id number] Health Active Problems Problem Noted Date Diagnosed [...] of Treatment Not on file Care Teams Spark Tester Relationship Specialty Start Date End Date Albert Rosado MD [address] [facility] [address] [place] [address] PCP - General 08/26/07
--- OUTSIDE RECORDS SUMMARY | 2025-04-29 10:01 | XMS_ITS | Encounter Summary ---
Author Organization [facility] Address [address] [place], [place] [address] Care Team Providers Care Group Director Experience Name Role Phone Albert Rosado MD Primary Care Provider [phone] Dhaval Acuña DO Unavailable [phone] Encounter Details Date Type Department Care Team (Late st Contact Info) Description 04/01/2025 Abstract [facility] Endocrine [address] [place] [address] Dhaval Acuña, 1954 [facility] [address] [address] Social History Tobacco Use Types Packs/Day Years [...] on file documented as of this encounter Plan of Treatment Upcoming Encounters Date Type Department Care Team (Late st Contact Info) Description 06/01/2025 3:15 PM EST Appointment [facility] Endocrine [address] [place] [address] Dhaval Acuña, 1954 [facility] [address] [place] [address] documented as of this encounter Visit Diagnoses Not on filedocumented in this encounter Care Teams Group Director Experience Relationship Specialty Start Date End Date Albert Rosado MD [address] [place] [address] [place] [address] PCP - General 08/17/08 Dhaval Acuña, [address] [place] [address] Endocrinology/Diabetes/[place] bolism 06/05/21 documented as of this encounter
--- OUTSIDE RECORDS SUMMARY | 2025-04-29 10:01 | XMS_ITS | Encounter Summary ---
Author Organization [facility] Address [address] [place] [address] Care Team Providers Care Manager Child Name Role Phone Israel Rosado MD Primary Care Provider [phone] Encounter Details Date Type Department Care Team (Late st Contact Info) Description 04/01/2025 Orders Only [facility] [address] [place], [place] [phone] Tori Maya, Clerical Staff Primary osteoarthritis of [...] 10:00 AM EST Appointment EDG PRE-[facility]MIT TESTING [facility] [place] [address] 05/12/2025 11:15 AM EST Office Visit [facility] [address] [place] [address] Arnav Murcia MD [address] [place] [address] 05/17/2025 12:30 PM EST Hospital Encounter [facility] [address] [place] [address] Arnav Murcia MD [address] [place] [address] 05/17/2025 12:30 PM EST - 05/17/2025 2:40 PM EST Surgery [facility] [address] [place] [address] Arnav Murcia MD [address] [place] [address] ARTHROPLASTY, KNEE, TOTAL, [id number] 06/02/2025 10:30 AM EST Office Visit [facility] [address] [place] [address] Lloyd Gil PA-C [address] [place] [phone] 06/29/2025 10:30 AM EST Office Visit [facility] [address] [address] Gigi Dee APRN [address] [place] [address] 08/17/2025 9:45 AM EST Office Visit [facility] [address] [id number] Gigi Dee APRN [address] [place] [address] Scheduled Orders Name Type Priority Associated Diagnoses Orde r Schedule SURGICAL/PROCEDURE CASE REQUEST - ORTHOCINCY Procedures Routine Primary osteoarthritis of right knee Ordered: 04/01/2025 Scheduled Procedures Name Priority Associated Diagnoses Date/Ti nh ARTHROPLASTY, KNEE, TOTAL, [id number] Primary osteoarthritis of right knee 05/17/2025 12:30 PM EST documented as of this encounter Goals Goal Patient Goal Type Associated Problems Recent Progress Patient-Stated? Author Autogenera thomas Goal Care Plan Autogenerated Problem No Denise Herring, Clerical Staff documented as of this encounter Visit Diagnoses Diagnosis Primary osteoarthritis of right knee- Primary Primary localized osteoarthrosis, lower leg Primary osteoarthritis of right knee- Primary Primary localized osteoarthrosis, lower leg Primary osteoarthritis of right knee Primary localized osteoarthrosis, lower leg documented in this encounter Additional Health Concerns Active Problems Noted Date Diagnosed Date Autogenerated Problem 04/01/2025 documented as of this encounter Care Teams Manager Child Relationship Specialty Start Date End Date Israel Rosado MD [address] [place] [address] [address] [place] [address] PCP - General 02/14/11 documented as of this encounter
--- OUTSIDE RECORDS SUMMARY | 2025-04-29 10:01 | XMS_ITS | Clinical Summary ---
Author Organization [facility] Address [address] [place] [address] Care Team Providers Care Revenue Director Name Role Phone Albert Rosado MD Primary Care Provider [phone] Social History Tobacco Use Types Packs/Day Years [...] ( season) 2025 Insurance EMPLOYEE Care Teams Revenue Director Relationship Specialty Start Date End Date Albert Rosado MD 12[address] [facility] [address] [place] [address] PCP - General 07/28/15
[2025-04-29 11:00] LABS: Hematocrit 40.6 % (37.0-47.0); Hemoglobin 13.1 g/dL (12.2-16.2); Immature Granulocytes % 0.6 %; Mean Corpuscular HGB Conc 32.3 g/dL (31.8-35.4); Mean Corpuscular Hemoglobin 27.4 pg (27.0-31.2); Mean Corpuscular Volume 84.9 fl (81-99); Nucleated Red Blood Cells % 0 %; Platelet Count 401 K/mm3 (142-424); Red Blood Count 4.78 M/mm3 (4.20-5.40); Red Cell Distribution Width-SD 42.6 fL; White Blood Count 12.0 K/mm3 (4.8-10.8)
[2025-04-29 11:18] LABS: Iron 57 ug/dL (37-170)
[2025-04-29 11:28] LABS: Total Iron Binding Capacity 323 ug/dL (265-497)
[2025-04-29 11:52] LABS: Ferritin 62.8 ng/ml (11.1-264)
== END 2025-04-29 23:59 | disposition home or self-care (01) ==
LOC: LAB 09:55
PROVIDERS: PCP Nurse Practitioner; Visit Provider Internal Medicine Medical Oncology
DX: D75.839 Thrombocytosis, unspecified (principal); D64.9 Anemia, unspecified
CPT/HCPCS: 36415; 82728; 83540; 83550; 85025

== ENCOUNTER 2025-05-05 12:35 | Outpatient (CLI) | payer MEDICARE, SELFPAY ==
--- OUTSIDE RECORDS SUMMARY | 2025-03-31 07:00 | XMS_ITS | Encounter Summary ---
Author Organization [facility] Address [address] [place] [address] Care Team Providers Care Dispatcher Tow Truck Name Role Phone Israel Rosado MD Primary Care Provider [phone] Reason for Referral * Surgical (Routine) - AFF Authorized Specialty Diagnoses / Procedures Referred By Contac t Referred To Contact General Surgery Diagnoses Primary osteoarthritis of right knee Primary osteoarthritis of left knee Procedures AMB OC SURGERY COMMUNICATION ORDER Lloyd Gil PA-C [address] [place] [address] Phone: tel: fax: EDG SAME DAY SURGERY [facility] [place] [address] Phone: tel: fax: Referral ID Status Reason Start Date Expiration Date Visits Requested Visits Authorized [id number] AFF Authorized 03/31/2025 03/31/2026 1 1 * Physical Therapy (Routine) - Pending Review Specialty Diagnoses / Procedures Referred By Contac t Referred To Contact Physical Therapy Diagnoses Primary osteoarthritis of right knee Primary osteoarthritis of left knee Lloyd Gil PA-C [address] [place] [address] Phone: tel: fax: Referral ID Status Reason Start Date Expiration Date V isits Requested Visits Authorized [id number] Pending Review 03/31/2025 03/31/2026 1 1 Question Answer surgical procedure Right TKR Evaluate and Treat Yes Select as appropriate Evaluate and treat appropriately Modalities/Procedures As Indicated Therapeutic Exercise As Indicated Goals: Decrease pain and swelling, Increase ROM, Increase function, Increase strength Additional instructions: Teach HEP, Frequency and duration per therapist discretion Medical Necessity: Promote full function post operatively * MRI/CAT Scan (Routine) - Closed Specialty Diagnoses / Procedures Referred By Mahnaz t Referred To Contact Radiology Diagnoses Primary osteoarthritis of right knee Primary osteoarthritis of left knee Procedures CT LOWER EXTREMITY RIGHT WO CONTRAST Lloyd Gil PA-C [address] [place] [address] Phone: tel: fax: Referral ID Status Reason Start Date Expiration Date Visits Re quested Visits Authorized [id number] Closed 03/31/2025 03/31/2026 1 1 Reason for Visit * Reason Comments Injections Pain Follow-up Follow-up Pain Injections Encounter Details Date Type Department Care Team (Latest Contact Info) Description 03/31/2025 8:00 [place] [address] Lloyd Gil PA-C [address] [place] [address] Primary osteoarthritis of right knee (Primary Dx); Primary osteoarthritis of left knee; Pre-op testing; History of familial combined hyperlipidemia Social History Tobacco Use Types Packs/Day Years [...] Sign Reading Time Taken Comments Blood Pressure - - Pulse - - Temperature - - Respiratory Rate - - Oxygen Saturation - - Inhaled Oxygen Concentration - - Weight 113.4 kg (250 lb) 03/31/2025 8:33 AM EDT Height 162.6 cm (5' 4 ) 03/31/2025 8:33 AM EDT Body Mass Index 42.91 03/31/2025 8:33 AM EDT documented in this encounter Progress Notes * Lloyd Gil PA-C - 03/31/2025 8:00 AM EDT Images from the original note were not included. [address] [phone] [place], [place] [phone] [place], [place] Bijal Brambila 1960 Date of Visit: 03/31/2025 Chief Complaint: Chief Complaint Patient presents with Left Knee - Injections, Pain, Follow-up Right Knee - Follow-up, Pain, Injections History: The patient is a 65 y.o. female who comes in today for repeat check of Bilateral knee. Chronic symptoms of bilateral knees have seen reduced response to the previous conservative measures. Only temporary relief following intra- articular injections. Persistent pain and limitations with all weightbearing activities. Wishes discuss pursuing more definitive management. Physical Examination: Range of motion of right knee is lacking 2 to 3 degrees of full extension andflexion between 112 and 115 degrees actively. Tenderness to palpation along the medial gutter and joint line. Positive compression. Negative apprehension. Intact extensor mechanism. Appropriate tracking of the patella with severe crepitus. Stable varus and valgus. Negative anterior and posterior drawer. Negative Bhakti. Positive pinch. Equivocal Jaclyn. Equivocal Thessaly. Soft compartments. Sensate to touch. Palpable pulses. Neurovascularly intact. Range of motion of the left knee is lacking 1 to 2 degrees of full extension and flexion between 115-118 degrees actively. Tenderness to palpation along the medial gutter and joint line. Appropriate tracking patella with significant crepitus. Positive compression. Negative apprehension. Intact extensor mechanism. Stable varus and valgus. Negative anterior posterior drawer. Negative Bhakti. Positive pinch. Equivocal Jaclyn. Equivocal Thessaly. Soft compartments. Sensate to touch. Palpable pulses. Neurovascularly intact. Impression: Severe bilateral knee osteoarthritis Plan: Reiterated prior conversations in regards to definitive management. Reduced response to conservative measures. With limitations on daily routine, she is ready pursue more definitive management.Order placed for right total knee replacement. CT scan obstructive preparation. Tentatively scheduled pending medical optimization and presurgical visits. Reviewed risk and benefits of surgery. Verbalized understanding and agreeable to the plan. All questions and concerns answered. DME Summary No orders found for display The supervising/collaborating provider for the technical component of the x-rays is Dr. Murcia. Please note that this printed circuit photographer was created using voice recognition software. Any errors are unintentional, and may be due to voice recognition printed circuit photographer. Cosigned by Arnav Murcia MD at 03/31/2025 3:07 PM EDT documented in this encounter Plan of Treatment Upcoming Encounters Date Type Department Care Team (Latest Contact Info) Description 05/12/2025 11:15 AM EST Office Visit [facility] [address] [place] [address] Arnav Murcia MD [address] [place] [address] 05/17/2025 12:30 PM EST Hospital Encounter [facility] [address] [place] [phone] Arnav Murcia MD [address] [place] [address] 05/17/2025 12:30 PM EST Anesthesia Event [facility] [address] [place] [phone] Jeancarlos Burkett APRN [address] [facility] [address] [place] [address] 05/17/2025 12:30 PM EST - 05/17/2025 2:40 PM EST Surgery [facility] [address] [place] [address] Arnav Murcia MD [address] [place] [address] ARTHROPLASTY, KNEE, TOTAL, [id number] 06/02/2025 10:30 AM EST Office Visit [facility] [address] [place], [place] [phone] Lloyd Gil PA-C [address] [address] 06/29/2025 10:30 AM EST Office Visit [facility] [address] [place] [address] [phone] Gigi Dee LUGGAGE REPAIRER [address] [place] [address] 08/17/2025 9:45 AM EST Office Visit [facility] [address] [address] Gigi Dee LUGGAGE REPAIRER [address] [place], [place] [phone] Scheduled Procedures Name Priority Associated Diagnoses Date/Ti ga ARTHROPLASTY, KNEE, TOTAL, [id number] Primary osteoarthritis of right knee 05/17/2025 12:30 PM EST Scheduled Referrals Name Type Priority Associated Diagnoses Orde r Schedule AMB REFERRAL TO PHYSICAL THERAPY Outpatient Referral Routine Primary osteoarthritis of right knee Primary osteoarthritis of left knee Ordered: 03/31/2025 documented as of this encounter Results * PT / INR (05/03/2025 11:07 AM EST) PT 10.5 10.5 - 13.6 second(s) 05/03/2025 11:36 AM EST [facility] INR 0.91 0.91 - 1.18 (ratio) 05/03/2025 11:36 AM EST [employer] Comment: Level of Therapy Indications Target INR Range Standard Dose Treatment and prophylaxis of venous 2.0 - 3.0 thrombosis, pulmonary embolism High Dose High risk patients with mechanical 2.5 - 3.5 heart valves Blood VENOUS BLOOD / Unknown Venipuncture / Unknown 05/03/2025 11:07 AM EST 05/03/2025 11:12 AM EST Lloyd Gil PA-C HEMATOLOGY ORDERABLES Final Result Performing Organization Address [facility] Co de Phone Number [facility], [address] , [place] [phone] * (ABNORMAL) HEMOGLOBIN A1C (05/03/2025 11:07 AM EST) Hgb A1C 6.4(H) 4.2 - 5.6 % 05/03/2025 1:35 PM EST [facility] Est. Avg Glucose 137 mg/dL 05/03/2025 1:35 PM EST [facility], [facility] Blood VENOUS BLOOD / Unknown Venipuncture / Unknown 05/03/2025 11:07 AM EST 05/03/2025 11:12 AM EST Narrative [facility], [facility] - 05/03/2025 1:35 PM EST REFERENCE RANGE: Normal: 4.0-5.6% Pre-diabetes: 5.7-6.4% Provisional diagnosis of diabetes: >6.4% Hgb F>10% and anything which shortens red cell survival, such as hemolytic anemia, or unstable hemoglobin variants such as HbSS, HbSC, or HbCC, will lower the HbA1c value associated with a given level of glycemic control. Lloyd Gil PA-C CHEMISTRY ORDERABLES Final Result Performing Organization Address [facility] de Phone Number [facility], [facility] [address] [facility] , [address] [place] [phone] * (ABNORMAL) COMPREHENSIVE METABOLIC PANEL (05/03/2025 11:07 AM EST) Sodium 136 136 - 145 mmol/L 05/03/2025 12:07 PM EST [facility] Potassium 4.0 3.5 - 5.0 mmol/L 05/03/2025 12:07 PM EST [facility] Chloride 100 98 - 107 mmol/L 05/03/2025 12:07 PM EST [facility] Total CO2 23 22 - 29 mmol/L 05/03/2025 12:07 PM EST [facility] Anion Gap 13 7 - 16 mmol/L 05/03/2025 12:07 PM EST [facility] Calcium 9.4 8.8 - 10.4 mg/dL 05/03/2025 12:07 PM EST [facility] Glucose Lvl 101(H) 70 - 99 mg/dL 05/03/2025 12:07 PM EST [facility] BUN 14 8 - 23 mg/dL 05/03/2025 12:07 PM EST [facility] Creatinine 0.61 0.51 - 1.30 mg/dL 05/03/2025 12:07 PM EST [facility] Albumin 4.0 3.2 - 4.6 gm/dL 05/03/2025 12:07 PM EST [facility] Total Protein 7.5 6.4 - 8.3 gm/dL 05/03/2025 12:07 PM EST [facility] Bili Total 0.3 0.2 - 1.3 mg/dL 05/03/2025 12:07 PM EST [facility] ALT 20 <=41 U/L 05/03/2025 12:07 PM EST [facility] AST 21 <=40 U/L 05/03/2025 12:07 PM EST [facility] Alk Phos 105 36 - 123 U/L 05/03/2025 12:07 PM EST [facility] eGFR (CKD-EPIcr 2020) 98 >=60 mL/min/1.7 3 m2 05/03/2025 12:07 PM EST [facility] Comment:Estimated GFR was ca lculated using the CKD-EPIcr (2020) equation refit without race. The equation is recommended by the National Kidney Foundation - [place] [employer] Neph[employer] Task Force. Blood VENOUS BLOOD / Unknown Venipuncture / Unknown 05/03/2025 11:07 AM EST 05/03/2025 11:12 AM EST us Lloyd Gil PA-C CHEMISTRY ORDERABLES Final Result [facility] [address] [facility] , [address] [place] [phone] * (ABNORMAL) CBC WITH DIFF (05/03/2025 11:07 AM EST) WBC 12.6(H) 3.7 - 10.3 x10(3)/mcL 05/03/2025 11:44 AM EST [facility] RBC 5.24(H) 3.90 - 5.20 x10(6)/mcL 05/03/2025 11:44 AM EST [facility] Hgb 14.1 11.2 - 15.7 g/dL 05/03/2025 11:44 AM EST [facility] Hct 44.3 34.0 - 45.0 % 05/03/2025 11:44 AM EST [facility] MCV 84.5 80.0 - 100.0 fL 05/03/2025 11:44 AM EST [facility] MCH 26.9 26.0 - 34.0 pg 05/03/2025 11:44 AM EST [facility] MCHC 31.8 30.7 - 35.5 g/dL 05/03/2025 11:44 AM EST [facility] RDW 13.7 <=14.9 % 05/03/2025 11:44 AM EST [facility] Platelet 452(H) 155 - 369 x10(3)/mcL 05/03/2025 11:44 AM EST [facility] MPV 10.2 8.8 - 12.5 fL 05/03/2025 11:44 AM EST [facility] Neut Percent 66.4 % 05/03/2025 11:44 AM EST [facility] Comment:Neutrophils equals s egs plus bands Imm Gran% 0.6 % 05/03/2025 11:44 AM EST [facility] Comment:Automated count of m etamyelocytes, myelocytes and promyelocytes. Lymph Percent 24.1 % 05/03/2025 11:44 AM EST [facility] Frederick Percent 5.9 % 05/03/2025 11:44 AM EST [facility] Eos Percent 2.4 % 05/03/2025 11:44 AM EST [facility] Baso Percent 0.6 % 05/03/2025 11:44 AM EST [facility] Neut # 8.4(H) 1.6 - 6.1 x10(3)/[facility] 05/03/2025 11:44 AM EST [facility] Comment:Neutrophils equals s egs plus bands IMMGRAN# 0.1 0.0 - 0.1 x10(3)/mcL 05/03/2025 11:44 AM EST [facility] Comment:Automated count of m etamyelocytes, myelocytes and promyelocytes. An absolute IG <0.1 is reported as 0.0. Lymph # 3.1 1.2 - 3.9 x10(3)/[facility] 05/03/2025 11:44 AM EST [facility] Frederick # 0.8 0.3 - 0.9 x10(3)/[facility] 05/03/2025 11:44 AM EST [facility] Eos# 0.3 0.0 - 0.5 x10(3)/[facility] 05/03/2025 11:44 AM EST [facility] Baso # 0.1 0.0 - 0.1 x10(3)/[facility] 05/03/2025 11:44 AM EST [facility] Blood VENOUS BLOOD / Unknown Venipuncture / Unknown 05/03/2025 11:07 AM EST 05/03/2025 11:12 AM EST Lloyd Gil PA-C HEMATOLOGY ORDERABLES Final Result [facility] [address] [facility] , [place] [address] * CT LOWER EXTREMITY RIGHT WO CONTRAST (04/27/2025 10:12 AM EST) Anatomical Region Laterality Modality Leg Computed Tomogra phy 04/27/2025 10:1 2 AM EST Impressions 04/27/2025 10:56 AM EST Severe right knee osteoarthritis, surgical planning study. - Note: Radiology results need to be interpreted within a comprehensive clinical context. If you have questions about the radiology report, please contact the office of the ordering clinician. Narrative 04/27/2025 10:[address] LOWER EXTREMITY RIGHT WO CONTRAST, 04/27/2025 10:12 AM CLINICAL HISTORY: M17.11-Unilateral primary osteoarthritis, right [id number]-CGS-64-CM M17.12-Unilateral primary osteoarthritis, left [id number]-DUS-18-CM COMPARISON: None. PROCEDURE COMMENTS: Multidetector CT with multiplanar reconstructions per ordered protocol. Juan protocol. Dose 1 : CT DLP Total : 560.54 mGycm DLP Spiral Max : 360.7 mGycm Maximum CTDI Vol : 14.32 mGy FINDINGS: There is severe right knee osteoarthritis, most pronounced in the medial compartment with subchondral sclerosis and marginal osteophytes. There is no acute or destructive osseous abnormality. Procedure Note Rocael Fall MD - 04/27/2025 CT LOWER EXTREMITY RIGHT WO CONTRAST, 04/27/2025 10:12 AM CLINICAL HISTORY: M17.11-Unilateral primary osteoarthritis, right [id number]-APW-72-CM M17.12-Unilateral primary osteoarthritis, left ofke-JVO-54-CM COMPARISON: None. PROCEDURE COMMENTS: Multidetector CT with multiplanar reconstructionsper ordered protocol. Juan protocol. Dose 1 : CT DLP Total : 560.54 mGycm DLP Spiral Max : 360.7 mGycm Maximum CTDI Vol : 14.32 mGy FINDINGS: There is severe right knee osteoarthritis, most pronounced inthe medial compartment with subchondral sclerosis and marginal osteophytes. There is no acute or destructive osseous abnormality. IMPRESSION: Severe right knee osteoarthritis, surgical planning study. - Note: Radiology results need to be interpreted within a comprehensiveclinical context. If you have questions about the radiology report, please contactthe office of the ordering clinician. Lloyd Gil PA-C Uri CT ORDERABLES Final Res ult documented in this encounter Visit Diagnoses Diagnosis Primary osteoarthritis of right knee- Primary Primary localized osteoarthrosis, lower leg Primary osteoarthritis of left knee Primary localized osteoarthrosis, lower leg Pre-op testing Preoperative examination, unspecified History of familial combined hyperlipidemia Personal history of other endocrine, metabolic, and immunity disorders Primary osteoarthritis of right knee Primary localized osteoarthrosis, lower leg Primary osteoarthritis of left knee Primary localized osteoarthrosis, lower leg Primary osteoarthritis of right knee Primary localized osteoarthrosis, lower leg documented in this encounter Historical Medications * This list may reflect changes made after this encounter. valsartan (DIOVAN) 40 mg Oral Tablet Take 40 mg by mouth daily. added in this encounter Orders Nursing Count Last Ordered Date First Orde red Date AMB OC SURGERY COMMUNICATION ORDER 1 2024 documented in this encounter Care Teams Dispatcher Tow Truck Relationship Specialty Start Date End Date Israel Rosado MD [address] [place] [address] [place] [phone] PCP - General 02/14/11 documented as of this encounter
--- OUTSIDE RECORDS SUMMARY | 2025-04-27 09:39 | XMS_ITS | Encounter Summary ---
Author Organization [place] [address] Care Team Providers Care Health Care Facility Administrator Name Role Phone Israel Rosado MD Primary Care Provider [phone] Reason for Referral * MRI/CAT Scan (Routine) - Closed Specialty Diagnoses / Procedures Referred By Contac t Referred To Contact Radiology Diagnoses Primary osteoarthritis of right knee Primary osteoarthritis of left knee Procedures CT LOWER EXTREMITY RIGHT WO CONTRAST Lloyd Gil PA-C [address] [place] [address] Phone: tel: fax: Referral ID Status Reason Start Date Expiration Date Visits Re quested Visits Authorized [id number] Closed 03/31/2025 03/31/2026 1 1 Reason for Visit * MRI/CAT Scan (Routine) - Closed Specialty Diagnoses / Procedures Referred By Contac t Referred To Contact Radiology Diagnoses Primary osteoarthritis of right knee Primary osteoarthritis of left knee Procedures CT LOWER EXTREMITY RIGHT WO CONTRAST Lloyd Gil PA-C [address] [place] [address] Phone: tel: fax: Referral ID Status Reason Start Date Expiration Date Visits Re quested Visits Authorized [id number] Closed 03/31/2025 03/31/2026 1 1 Encounter Details Date Type Department Care Team (Latest Contact Info) Description 04/27/2025 9:39 AM EST - 04/27/2025 11:59 PM EST Hospital Encounter [facility] [address] [place] [address] Lloyd Gil PA-C [address] [facility] [place] [address] Primary osteoarthritis of right [...] every 4 hours as needed for Pain. Blood-Glucose Meter,Continuous (DEXCOM G7 TRUCK TERMINAL MANAGER) [facility] 04/01/2024 Coenzyme Q10 (CO Q-10) 10 mg Oral Capsule Take by mouth daily. cycloSPORINE (RESTASIS) 0.05 % ophthalmic emulsion Place into both eyes every 12 hours. doxycycline hyclate (VIBRA-TABS) 100 mg Oral Tablet Take 100 mg by mouth 2 times daily. 04/27/2025 DULoxetine (CYMBALTA) 30 mg Oral Capsule, Delayed Release(E.C.) Take 30 mg by mouth daily. fish oil omega-3 fatty acids 300-1,000 mg Oral Capsule Take 2 g by mouth daily. hydrocortisone (ANUSOL-HC) 25 mg [...] Tablet Take 10 mg by mouth daily. metFORMIN (GLUCOPHAGE) 500 mg [...] Tablet Take 40 mg by mouth daily. cholecalciferol, vitamin D3, 400 unit Oral Tablet Take 1 Tab by mouth daily. 5 ciprofloxacin HCl (CIPRO) 500 mg Oral Tablet Take by mouth every 12 hours. 5 fUROsemide (LASIX) 20 mg Oral Tablet Take by mouth every 12 hours. 5 glimepiride (AMARYL) 2 mg Oral Tablet Take 2 mg by mouth daily. 5 losartan-hydrochl orothiazide (HYZAAR) 100-12.5 mg Oral Tablet Take 1 Tab by mouth daily. 5 documented as of this encounter Discharge Disposition Disposition Code Departure Means Destination Home or Self Care documented in this encounter Plan of Treatment Upcoming Encounters Date Type Department Care Team (Latest Contact Info) Description 05/12/2025 11:15 AM EST [facility] [address] [place] [address] Arnav Murcia MD [address] [place] [address] 05/17/2025 12:30 PM EST Hospital Encounter [facility] [address] [place] [address] Arnav Murcia MD [address] [place] [address] 05/17/2025 12:30 PM EST Anesthesia Event [facility] [address] [place] [address] Jeancarlos Burkett APRN [address] [facility] [place] [id number] 05/17/2025 12:30 PM EST - 05/17/2025 2:40 PM EST Surgery [facility] [address] [place] [address] Arnav Murcia MD [address] [place] [address] ARTHROPLASTY, KNEE, TOTAL, [id number] 06/02/2025 10:30 AM EST Office Visit [facility] [address] [place] [address] Lloyd Gil, SUBHA [address] [place] [address] 06/29/2025 10:30 AM EST Office Visit [facility] [address] [facility] [address] [place] [address] Gigi Dee APRN [address] [place] [address] 08/17/2025 9:45 AM EST Office Visit [facility] [address] [address] Gigi Dee PIECE GOODS CLERK [address] [place] [address] Scheduled Procedures Name Priority Associated Diagnoses Date/Ti ar ARTHROPLASTY, KNEE, TOTAL, [id number] Primary osteoarthritis of right knee 05/17/2025 12:30 [...] AM CLINICAL HISTORY: M17.11-Unilateral primary osteoarthritis, right wuvt-KNH-99-CM M17.12-Unilateral primary osteoarthritis, left siqb-DVC-84-CM COMPARISON: None. PROCEDURE COMMENTS: Multidetector CT with [...] AM CLINICAL HISTORY: M17.11-Unilateral primary osteoarthritis, right bqhb-AUO-03-CM M17.12-Unilateral primary osteoarthritis, left bdnv-GLZ-10-CM COMPARISON: None. PROCEDURE COMMENTS: Multidetector CT with [...] of the ordering clinician. Lloyd Gil PA-C IMG CT ORDERABLES Final Res ult documented in [...] Intravenous, ONCE PRN, 1 dose, Starting on 04/27/25 at 1012, Until 04/27/25 at 1013, Radiography/Imaging, Radiology Procedure, VESICANT , CT (Contrasts) Given 04/27/2025 10:13 AM EST 75 mL sodium chloride 0.9% syringe 10 mL 10 mL, Intravenous, ONCE PRN, 1 dose, Starting on 04/27/25 at 1013, Until 04/27/25 at 1013, Line Care, Flush peripheral lines every 12 hours, central lines every 8 hours, and after IV medication, CT (Contrasts) Given 04/27/2025 10:13 AM EST 10 mL documented in this encounter Additional Health Concerns Active Problems Noted Date Diagnosed Date Autogenerated Problem 04/01/2025 documented as of this encounter Care Teams Health Care Facility Administrator Relationship Specialty Start Date End Date Israel Rosado MD [address] [facility] [address] [place] [id number] PCP - General 02/14/11 documented as of this encounter
--- OUTSIDE RECORDS SUMMARY | 2025-05-03 09:41 | XMS_ITS | Encounter Summary ---
Author Organization [facility] [place] [address] Care Team Providers Care Clerical Investigator Name Role Phone Israel Rosado MD Primary Care Provider [phone] Encounter Details Date Type Department Care Team (Latest Contact Info) Description 05/03/2025 9:41 AM EST - 05/03/2025 11:59 PM EST Hospital Encounter EDG PRE-ADMIT TESTING [facility] [place] [address] Hypertension, unspecified type (Primary Dx); Preop testing; Pre-op testing; History of familial combined hyperlipidemia Discharge Disposition: Home or Self Care Anesthesia Record Procedure Summary Procedure Name Responsible Anesthesiologist Anesthesia Start Time Anesthesia Stop Time ARTHROPLASTY, KNEE, TOTAL, [id number] (Right: Knee) Events No events on file. Meds * Agents No agents on file. * Blood No blood administrations on file. Lines, Drains, and Airways No LDAs on file. documented in this encounter Social History Tobacco Use Types Packs/Day Years [...] Sign Reading Time Taken Comments Blood Pressure 140/66 05/03/2025 9:51 AM EST Pulse 80 05/03/2025 9:51 AM EST Temperature 36.3 C (97.3 F) 05/03/2025 9:51 AM EST Respiratory Rate 20 05/03/2025 9:51 AM EST Oxygen Saturation 95% 05/03/2025 9:51 AM EST Inhaled Oxygen Concentration - - Weight 114.8 kg (253 lb 0.3 oz) 05/03/2025 9:51 AM EST Height 162.6 cm (5' 4 ) 05/03/2025 9:51 AM EST Body Mass Index 43.43 05/03/2025 9:51 AM EST documented in this encounter Discharge Instructions * Discharge Instructions* Ana Zayas RN - 05/03/2025 10:31 AM EST Images from the original note were not included. PREPARING FOR YOUR SURGERY Date of Surgery: 05/17/2025 Arrival time: Your surgeon may have already provided this, check your paperwork from the office. Ifnot received, call your surgeon's office. Location: [place] Medications on the Day of Surgery Take the following medications on the morning of surgery: eye drops,omeprazole Medications to hold prior to surgery; Verify with your doctor for possibly discontinuing the following medications: blood thinners, aspirin, or anti-inflammatories. Stop taking all supplements 7 days prior to your surgery. Do not take any LOURDES inhibitors (ends in PRIL ) or angiotensin receptor blockers (ends in SARTAN )on the day of surgeryvalsartan Hold Semaglutide (Ozempic, Wegovy) 7 days prior to surgery.Advised to hold prior to surgery. Last dose will be 05/07/2025 [facility] DIABETIC INSTRUCTIONS-ORAL MEDS: Day before Surgery:Take all diabetic meds as usual unless your doctor gives you other instructions., Do not take any oral DIABETIC medications the morning of surgery., and We will check your blood sugar when you get to the hospital and throughout the day. Food, Drinks, Tobacco Do not eat food after midnight. This includes gum, mints, candy, chewing tobacco, and dip. Unless otherwise instructed by your surgeon, you may consume water, Gatorade zero, Powerade zero, black coffee/tea (no milk, no cream/creamers, no sugar). Finish these liquids 2 hours prior to your scheduled arrival time. No exceptions or substitutions to these restrictions. Do not smoke, vape, or use any type of tobacco or marijuana products within 24 hours prior to surgery. Smoking will also slow your rate of healing. It is advised that you do not smoke during the healing process. No alcohol 24 hours prior to surgery. Word Processing Operator It is important to have a Word Processing Operator, someone who is 18 years or older, to accompany you and remain in the facility for the duration of your surgery. This person should be available for the Perioperative Team, which includes your surgeon, to communicate with before, during and after your surgery. Because you are receiving anesthesia, someone is needed to drive you home and remain with you for at least 24 hours after surgery to make sure you are safe during that time We also recommend that no children be present on the day of surgery. If you have a concern, please reach out to our department [phone]. Hygiene [place] your teeth and gargle the morning of surgery. Shower the morning of surgery or the night before. Do not wear makeup (including eye makeup) lotion, powder, deodorant, perfume, or cologne. Do not shave the operative extremity or near the operative area. Remove nail guatemalan prior to surgery. This includes artificial nails and gel nail guatemalan. Shower or bathe with chlorhexidine (CHG) the night before your surgery or the morning of your surgery. Do not shave the area of your body where your surgery will be performed. With each shower or bath, wash your hair as usual first with your regular shampoo. Rinse your hair and body thoroughly after you shampoo your hair to remove the shampoo residue. Apply the chlorhexidine (CHG) soap to your entire body ONLY FROM THE NECK DOWN. Wash thoroughly, paying special attention to the area where your surgery will be performed. Do not use chlorhexidine (CHG) on your head, face or near your mouth. Do not use near eyes or ears to avoid permanent injury tothose areas. Do not use chlorhexidine in the genital area. Turn water off to prevent rinsing the soap off too soon. Wash your body gently for five (5) minutes. Do not scrub your skin too hard. Do not wash with your regular soap after chlorhexidine (CHG) is used. Turn the water back on and rinse your body thoroughly. Pat yourself dry with a clean, soft towel. Do not apply any lotions, perfumes or powders after use. See additional information located under label on product. Personal Items Wear clean, simple, loose-fitting clothing (no jeans) and sturdy shoes (no flip flops, slides or crocs) to the hospital. Do not bring unnecessary valuables with you. It is policy that [facility] does not assume responsibility for lost, stolen or broken personal items that are brought in. Exceptions may be consideredfor items which are considered necessary for your healthcare. These items will be formally documented. Remove all jewelry prior to surgery to prevent injury. We will not tape wedding rings/bands Remove all body piercings prior to arrival. Plastic inserts are acceptable. If you have dentures, they may need to be removed before going into the operating room. We will have a case for them. Glasses and contacts will need to be removed prior to surgery. Please bring a case for them.. If you have hearing aids, please wear them to the hospital and bring a case. Bring with You Bring a copy of your Living Will and/or Durable Power of Rubber Liner for Healthcare. If you are having surgery at the hospital and you wear a CPAP or BIPAP, please bring your mask tubing and machine settings with you. The hospital will supply a machine to use during your hospital stay. Vaccines It is recommended that you do not receive vaccines 7 days before or after surgery. Notify the Surgeon Notify your surgeon if you develop any illness (fever, cold, cough, sore throat, nausea, vomiting, skin rashes etc.) between now and surgery time Notify your surgeon and Pre-admission testing ([phone]) if you have any changes in your healthconditions or if any new medications are ordered between now and surgery.. Questions or Concerns? If you have any questions or concerns, feel free to call the Pre-Admission testing department at [phone]. We want to make sure you feel safe and have an excellent experience while you are here. Do not reply to this message through [employer] as it may not be answered promptly. Same Day Surgery Unit - [place] at [phone]; [place]: Park at Entrance 1A Main Entrance, NOT Outpatient Parking. Walk in atrium and go to senior front end developer. Look for sign at information desk that states Surgery Check In . [address] [place] [address]. DOORS OPEN AT 5: 30 AM MON-FRI AND 6:00 AM ON SATURDAY AND 8:00 AM ON SATURDAY Use link below to view the online education book and video Orthopedic Surgery Education [place], [place] & [place] [facility] {KEIRY JAGDISH LY and SSI:[id number]} * Attachments The following attachments cannot be sent through Care Everywhere. * HOW TO USE CHLORHEXIDINE BEFORE SURGERY - [facility] documented in this encounter Medications at Time of Discharge acetaminophen (TYLENOL) Oral Tab Take by mouth every 4 hours as needed for Pain. aspirin 81 mg Oral Tablet, Chewable Take 81 mg by mouth daily. Blood-Glucose Meter,Continuous (DEXCOM G7 BOTTOM POUNDER CEMENT SHOES) [facility] 04/01/2024 calcium carbonate-vitamin D 500 mg-5 mcg (200 unit) Oral Tablet Take 1 Tablet by mouth daily. 600 mg calcium,vitamin d 1000units Coenzyme Q10 (CO Q-10) 10 mg Oral Capsule Take by mouth daily. cycloSPORINE (RESTASIS) 0.05 % ophthalmic emulsion Place into both eyes every 12 hours. DEXCOM G7 SENSOR [facility] Device USE DIRECTED TO CHECK BLOOD GLUCOSE CONTINUOUSLY. CHANGE EVERY 10 DAYS. doxycycline hyclate (VIBRA-TABS) 100 mg Oral Tablet Take 100 mg by mouth 2 times daily. 04/27/2025 DULoxetine (CYMBALTA) 30 mg Oral Capsule, Delayed Release(E.C.) Take 30 mg by mouth daily. fish oil omega-3 fatty acids 300-1,000 mg Oral Capsule Take 2 g by mouth daily. hydroCHLOROthiazi de (MICROZIDE) 12.5 mg Oral Capsule Take 12.5 mg by mouth daily. hydrocortisone (ANUSOL-HC) 25 [...] Tablet Take 40 mg by mouth daily. XIIDRA 5 % Opht Dropperette INSTILL 1 DROP INTO AFFECTED EYE(S) BY OPHTHALMIC ROUTE TWICE PER DAY documented as of this encounter Discharge Disposition Disposition Code Departure Means Destination Home or Self Care documented in this encounter Plan of Treatment Upcoming Encounters Date Type Department Care Team (Latest Contact Info) Description 05/12/2025 11:15 AM EST Office Visit [facility] [address] [place] [address] Arnav Murcia MD [address] [place] [address] 05/17/2025 12:30 PM EST Hospital Encounter [facility] [address] [place] [address] Arnav Murcia MD [address] [place] [address] 05/17/2025 12:30 PM EST Anesthesia Event [facility] [address] [place] [address] Jeancarlos Burkett, MOTOR POWER CONNECTOR [address] [facility] [place] [address] 05/17/2025 12:30 PM EST - 05/17/2025 2:40 PM EST Surgery [facility] [address] [place] [address] Arnav Murcia MD [address] [place] [address] ARTHROPLASTY, KNEE, TOTAL, [id number] 06/02/2025 10:30 AM EST Office Visit [facility] [address] [place], [place] [id number] Lloyd Gil PA-C [address] [id number] 06/29/2025 10:30 AM EST Office Visit [facility] [address] [facility] [address] [place], [place] [id number] Gigi Dee MOTOR POWER CONNECTOR [address] [place] [address] 08/17/2025 9:45 AM EST Office Visit [facility] [address] [place] [address] [address] [place], [place] [phone] Gigi Dee MOTOR POWER CONNECTOR [address] [place], [place] [id number] Scheduled Procedures Name Priority Associated Diagnoses Date/Ti in ARTHROPLASTY, KNEE, TOTAL, [id number] Primary osteoarthritis of right knee 05/17/2025 12:30 PM EST documented as of this encounter Goals Goal Patient Goal Type Associated Problems Recent Progress Patient-Stated? Author Autogenera thomas Goal Care Plan Autogenerated Problem No Denise Herring, Clerical Staff documented as of this encounter Procedures Procedure Name Priority Date/Time Associated Diagnosis Comments PT / INR Routine 05/03/2025 11:07 AM EST Pre-op testing History of familial combined hyperlipidemia CBC WITH DIFF Routine 05/03/2025 11:07 AM EST Pre-op testing HEMOGLOBIN A1C Routine 05/03/2025 11:07 AM EST Pre-op testing History of familial combined hyperlipidemia COMPREHENSIVE METABOLIC PANEL Routine 05/03/2025 11:07 AM EST Pre-op testing documented in this encounter Results * PT / INR (05/03/2025 11:07 AM EST) PT 10.5 10.5 - 13.6 second(s) 05/03/2025 11:36 AM EST [facility] [employer] [facility] INR 0.91 0.91 - 1.18 (ratio) 05/03/2025 11:36 AM EST [facility] [employer] [facility] Comment: Level of Therapy Indications Target INR Range Standard Dose Treatment and prophylaxis of venous 2.0 - 3.0 thrombosis, pulmonary embolism High Dose High risk patients with mechanical 2.5 - 3.5 heart valves Blood VENOUS BLOOD / Unknown Venipuncture / Unknown 05/03/2025 11:07 AM EST 05/03/2025 11:12 AM EST Lloyd Gil PA-C HEMATOLOGY ORDERABLES Final Result [facility] [employer] [facility] [address] [place] [address] * (ABNORMAL) HEMOGLOBIN A1C (05/03/2025 11:07 AM EST) Hgb A1C 6.4(H) 4.2 - 5.6 % 05/03/2025 1:35 PM EST [facility] [employer] [facility] Est. Avg Glucose 137 mg/dL 05/03/2025 1:35 PM EST [facility] [employer] [facility] Blood VENOUS BLOOD / Unknown Venipuncture / Unknown 05/03/2025 11:07 AM EST 05/03/2025 11:12 AM EST Narrative [facility] [employer] [facility] - 05/03/2025 1:35 PM EST REFERENCE RANGE: Normal: 4.0-5.6% Pre-diabetes: 5.7-6.4% Provisional diagnosis of diabetes: >6.4% Hgb F>10% and anything which shortens red cell survival, such as hemolytic anemia, or unstable hemoglobin variants such as HbSS, HbSC, or HbCC, will lower the HbA1c value associated with a given level of glycemic control. us Lloyd Gil PA-C CHEMISTRY ORDERABLES Final Result [facility] [address] [facility] , [place] [address] * (ABNORMAL) COMPREHENSIVE METABOLIC PANEL (05/03/2025 11:07 AM EST) Sodium 136 136 - 145 mmol/L 05/03/2025 12:07 PM EST [facility] Potassium 4.0 3.5 - 5.0 mmol/L 05/03/2025 12:07 PM EST [facility] Chloride 100 98 - 107 mmol/L 05/03/2025 12:07 PM EST [facility] Total CO2 23 22 - 29 mmol/L 05/03/2025 12:07 PM EST [facility] Anion Gap 13 7 - 16 mmol/L 05/03/2025 12:07 PM EST [facility] Calcium 9.4 8.8 - 10.4 mg/dL 05/03/2025 12:07 PM EST [facility] Glucose Lvl 101(H) 70 - 99 mg/dL 05/03/2025 12:07 PM EST [facility] BUN 14 8 - 23 mg/dL 05/03/2025 12:07 PM EST [facility] Creatinine 0.61 0.51 - 1.30 mg/dL 05/03/2025 12:07 PM EST [facility] Albumin 4.0 3.2 - 4.6 gm/dL 05/03/2025 12:07 PM EST [facility] Total Protein 7.5 6.4 - 8.3 gm/dL 05/03/2025 12:07 PM EST [facility] Bili Total 0.3 0.2 - 1.3 mg/dL 05/03/2025 12:07 PM EST [facility] ALT 20 <=41 U/L 05/03/2025 12:07 PM EST [facility] AST 21 <=40 U/L 05/03/2025 12:07 PM EST [facility] Alk Phos 105 36 - 123 U/L 05/03/2025 12:07 PM EST [facility] eGFR (CKD-EPIcr 2020) 98 >=60 mL/min/1.7 3 m2 05/03/2025 12:07 PM EST [facility] Comment:Estimated GFR was ca lculated using the CKD-EPIcr (2020) equation refit without race. The equation is recommended by the National Kidney Foundation - [place] Society of Nephrology Task Force. Blood VENOUS BLOOD / Unknown Venipuncture / Unknown 05/03/2025 11:07 AM EST 05/03/2025 11:12 AM EST Lloyd Gil PA-C CHEMISTRY ORDERABLES Final Result [facility] [address] [facility] , [address] [place] [phone] * (ABNORMAL) CBC WITH DIFF (05/03/2025 11:07 [...] 05/03/2025 11:44 AM EST [facility] Comment:Neutrophils equals s egs plus bands Imm Gran% 0.6 % 05/03/2025 11:44 AM EST [facility] Comment:Automated count of m etamyelocytes, myelocytes and promyelocytes. Lymph Percent 24.1 % 05/03/2025 11:44 AM EST [facility] Benson Percent 5.9 % 05/03/2025 11:44 AM EST [facility] Eos Percent 2.4 % 05/03/2025 11:44 AM EST [facility] Baso Percent 0.6 % 05/03/2025 11:44 AM EST [facility] Neut # 8.4(H) 1.6 - 6.1 x10(3)/[facility] 05/03/2025 11:44 AM EST [facility] Comment:Neutrophils equals s egs plus bands IMMGRAN# 0.1 0.0 - 0.1 x10(3)/[facility] 05/03/2025 11:44 AM EST [facility] Comment:Automated count of m etamyelocytes, myelocytes and promyelocytes. An absolute IG <0.1 is reported as 0.0. Lymph # 3.1 1.2 - 3.9 x10(3)/mcL 05/03/2025 11:44 AM EST [facility] Benson # 0.8 0.3 - 0.9 x10(3)/[facility] 05/03/2025 11:44 AM EST [facility] Eos# 0.3 0.0 - 0.5 x10(3)/mcL 05/03/2025 11:44 AM EST [facility] Baso # 0.1 0.0 - 0.1 x10(3)/[facility] 05/03/2025 11:44 AM EST [facility] Blood VENOUS BLOOD / Unknown Venipuncture / Unknown 05/03/2025 11:07 AM EST 05/03/2025 11:12 AM EST Lloyd Gil PA-C HEMATOLOGY ORDERABLES Final Result [facility] [address] [place] [address] documented in this encounter Visit Diagnoses Diagnosis Primary osteoarthritis of right knee- Primary Primary localized osteoarthrosis, lower leg Hypertension, unspecified type- Primary Preop testing Preoperative examination, unspecified Pre-op testing Preoperative examination, unspecified History of familial combined hyperlipidemia Personal history of other endocrine, metabolic, and immunity disorders Primary osteoarthritis of right knee Primary localized osteoarthrosis, lower leg documented in this encounter Discontinued Medications Medication Sig Discontinue Reason Start Date End Da te cholecalciferol, vitamin D3, 400 unit Oral Tablet Take 1 Tab by mouth daily. Removed During Admission Medication Review 05/03/2025 ciprofloxacin HCl (CIPRO) 500 mg Oral Tablet Take by mouth every 12 hours. Removed During Admission Medication Review 05/03/2025 losartan-hydrochlorothi azide (HYZAAR) 100-12.5 mg Oral Tablet Take 1 Tab by mouth daily. Removed During Admission Medication Review 05/03/2025 glimepiride (AMARYL) 2 mg Oral Tablet Take 2 mg by mouth daily. Removed During Admission Medication Review 05/03/2025 fUROsemide (LASIX) 20 mg Oral Tablet Take by mouth every 12 hours. Removed During Admission Medication Review 05/03/2025 documented as of this encounter Historical Medications * This list may reflect changes made after this encounter. XIIDRA 5 % Opht Dropperette INSTILL 1 DROP INTO AFFECTED EYE(S) BY OPHTHALMIC ROUTE TWICE PER DAY hydroCHLOROthiazi de (MICROZIDE) 12.5 mg Oral Capsule Take 12.5 mg by mouth daily. Blood-Glucose Meter,Continuous (DEXCOM G7 BOTTOM POUNDER CEMENT SHOES) [facility] 04/01/2024 DEXCOM G7 SENSOR [facility] Device USE DIRECTED TO CHECK BLOOD GLUCOSE CONTINUOUSLY. CHANGE EVERY 10 DAYS. calcium carbonate-vitamin D 500 mg-5 mcg (200 unit) Oral Tablet Take 1 Tablet by mouth daily. 600 mg calcium,vitamin d 1000units aspirin 81 mg Oral Tablet, Chewable Take 81 mg by mouth daily. doxycycline hyclate (VIBRA-TABS) 100 mg Oral Tablet Take 100 mg by mouth 2 times daily. 04/27/2025 added in this encounter Additional Health Concerns Active Problems Noted Date Diagnosed Date Autogenerated Problem 04/01/2025 documented as of this encounter Care Teams Clerical Investigator Relationship Specialty Start Date End Date Israel Rosado MD [address] [place] [address] [address] [place] [address] PCP - General 02/14/11 documented as of this encounter
--- OUTSIDE RECORDS SUMMARY | 2025-05-05 12:39 | XMS_ITS | Encounter Summary ---
Author Organization [facility] Address [address] [place] [address] Care Team Providers Care Public Bath Attendant Name Role Phone Albert Rosado MD Primary Care Provider [phone] Dhaval Acuña DO Unavailable [phone] Reason for Visit * Reason Comments Medications Refill Encounter Details Date Type Department Care Team (Late st Contact Info) Description 12/16/2020 Refill [facility] - [facility] [place] [address] [place] [address] [address] [place] [id number] Dhaval Acuña, DO [address] [facility] [place] [address] Medications Refill Social History Tobacco Use Types [...] Description 06/01/2025 3:15 PM EST Appointment [facility] [place] [address] [facility] [address] [place] [address] Dhaval Acuña, 1954 [address] [facility] [address] [place] [id number] documented as of this encounter Visit Diagnoses Diagnosis Controlled type 2 diabetes mellitus without complication, unspecified whether nursing home insulin use documented in this encounter Care Teams Public Bath Attendant Relationship Specialty Start Date End Date Albert Rosado MD [address] [facility] [address] [place] [address] PCP - General 08/17/08 Dhaval Acuña, 1954 [place] [facility] [address] [place] [id number] Endocrinology/Diabetes/[place] bolism 06/05/21 documented as of this encounter
--- OUTSIDE RECORDS SUMMARY | 2025-05-05 12:39 | XMS_ITS | Clinical Summary ---
Author Organization [facility] Address [address] [place] [address] Care Team Providers Care Sash Sticker Name Role Phone Unavailable Primary Care Provider [...] Minerals-Vitami ns (CALCIUM-MAGNES IUM-ZINC-D3 PO) Acti ve Gerald 3 1000 MG capsule Take 2 g [...] UKY-Zoster Vaccines (2 of 2) 11/20/2021 09/25/2021 [id number] Vaccine ( - season) 2025 02/12/2022, 04/25/2021, [...]
--- OUTSIDE RECORDS SUMMARY | 2025-05-05 12:39 | XMS_ITS | Clinical Summary ---
Author Organization [facility] Address [address] [facility] [address] [place] [address] Phone Care Team Providers Care Fitness Assistant Name Role Phone Blanca Cote Conditions or Problems Problem Name Problem Code Onset Date Status Entry Date Provider Comment Standard Description Annotate ENCOUNTER FOR OTHER SPECIFIED SURGICAL AFTERCARE Z48.89 (ICD-10-CM) Active Mary Griffin MD Encounter for other specified surgical aftercare CARPAL TUNNEL SYNDROME, LEFT UPPER LIMB G56.02 (ICD-10-CM) Active Landen Josep Carpal tunnel syndrome, left upper limb CARPAL TUNNEL SYNDROME, RIGHT [id number] (SNOMED CT) Active Landen Josep Carpal tunnel syndrome OVERWEIGHT [id number] (SNOMED CT) Active Bijal Armas MA Overweight CARPAL TUNNEL SYNDROME [id number] (SNOMED CT) Active Mary Griffin MD Carpal tunnel syndrome OBESE [id number] (SNOMED CT) Active Mary Griffin MD Obesity Medications Medication Instructions Start Date Stop Date Generic Name NDC Provider METHOCARBAMOL 500 MG TABS 4 METHOCARBAMOL [id number] Mary Griffin MD CONTRAVE 8-90 MG [id number] 4 NALTREXONE-BUPRO PION HCL [id number] Mary Griffin MD CLOTRIMAZOLE-BETA METHASONE 1-0.05 % CREA 4 CLOTRIMAZOLE-BET AMETHASONE [id number] Mary Griffin MD AMOXICILLIN-POT CLAVULANATE 875-125 MG TABS 4 AMOXICILLIN-POT CLAVULANATE [id number] Mary Griffin MD PRAVASTATIN SODIUM 20 MG TABS 8 PRAVASTATIN SODIUM [id number] Mary Griffin MD OMEPRAZOLE 20 MG CPDR 8 OMEPRAZOLE [id number] Mary Griffin MD METFORMIN HCL 500 MG TABS 8 METFORMIN HCL [id number] Mary Griffin MD [place]AN POTASSIUM-HCTZ 100-12.5 MG TABS 8 [place] POTASSIUM-HCTZ [id number] Mary Griffin MD GLIMEPIRIDE 2 MG TABS 8 GLIMEPIRIDE [id number] Mary Griffin MD DULOXETINE HCL 30 MG CPEP 8 DULOXETINE HCL [id number] Mary Griffin MD DEXAMETHASONE 0.5 MG TABS 2 DEXAMETHASONE [id number] Mary Griffin MD CEFUROXIME AXETIL 500 MG TABS 3 CEFUROXIME AXETIL [id number] Mary Griffin MD Medications Administered No information [...]
--- OUTSIDE RECORDS SUMMARY | 2025-05-05 12:39 | XMS_ITS | Clinical Summary ---
Author Organization [facility] Address [address] [place] [address] Care Team Providers Care Maintenance Technician Name Role Phone Albert Rosado MD Primary Care Provider [phone] Dhaval Acuña DO Unavailable [phone] Allergies No known active allergies Medications acetaminophen (TYLENOL) 325 mg tablet Take by mouth. Activ e cholecalciferol (VITAMIN D-3) 400 unit Tablet Take by mouth. Active Coenzyme Q10 10 mg Capsule Take by mouth. Acti ve DULoxetine (CYMBALTA) 30 mg Capsule, Delayed Release(E.C.) Take 30 mg by mouth. Active Fish Oil-Elko-3 Fatty Acids 300-1,000 mg Capsule Take 2 [...] in the morning. 4 Active Dexcom G7 Stewarding Supervisor 4 Active losartan (COZAAR) 100 mg Tablet [...] 2 diabetes mellitus without complication, unspecified whether continuous churn buttermaker insulin use Take 1 Tablet by mouth 2 times daily. 180 Tablet 1 5 Active valsartan (DIOVAN) 40 mg Tablet Take 40 mg by mouth daily. Active semaglutide (Ozempic) 1 mg/dose (4 mg/3 mL) Pen InjectorIndicati ons:Controlled type 2 diabetes mellitus without complication, unspecified whether continuous churn buttermaker insulin use 1 mg by Subcutaneous route once weekly. 3 mL 5 5 Active Active Problems Problem Noted Date Diagnosed Date Adrenal abnormality 10/16/2023 Encounters Date Type Department Care Team Description 04/01/2025 Telephone [facility] Diabetes & Endocrine [place], [place] [address] [facility] [address] [place], [place] [address] Dhaval Acuña, DO Other 04/01/2025 Abstract [facility] Diabetes & Endocrine [place], [place] [address] [facility] [address] [place], [place] [address] Dhaval Acuañ, DO 03/26/2025 Telephone [facility] Diabetes & Endocrine [place], [address] [place] [address] Dhaval Acuña, Results 02/15/2025 1:30 PM EDT Office Visit [facility] Diabetes & Endocrine [address] [place] [address] Dhaval Acuña, Controlled type 2 diabetes mellitus without complication, unspecified whether halfway insulin use (CMS/HCC) (Primary Dx); Adrenal abnormality; [...] Description 06/01/2025 3:15 PM EST Appointment [facility] Diabetes & Endocrine [address] [place] [address] Dhaval Acuña DO [address] [facility] [address] [place] [address] Health [...] 2 diabetes mellitus without complication, unspecified whether continuous churn buttermaker insulin use ([facility]) AMB REFERRAL TO OPHTHALMOLOGY Routine 05/28/2024 3:40 PM EST ALBUMIN, URINE CREATININE/RATIO Routine 05/07/2023 8:45 AM EST Controlled type 2 diabetes mellitus without complication, unspecified whether halfway insulin use COMPREHENSIVE METABOLIC PANEL Routine 05/07/2023 8:45 AM EST Controlled type 2 diabetes mellitus without complication, unspecified whether halfway insulin use LIPID PROFILE Routine 05/07/2023 8:45 AM EST Controlled type 2 diabetes mellitus without complication, unspecified whether continuous churn buttermaker insulin use from Last 3 Months or [...] Creatinine, Ur 45.7 20.0 - 310.0 mg/dL [facility] Alb, Ur 0.50 mg/dL [facility]COM[facility] PORTFOLIO [facility]NAGER [facility] Alb Creat Ratio 11 0 - 30 mg/g creat [facility] Comment: Category Result (mg/ [...] Dhaval Acuña DO URINE ORDERABLES Final Result [facility] [address] * LIPID PROFILE (05/07/2023 8:45 AM EST) Cholesterol 148 125 - 199 mg/dL [facility] Comment: TOTAL CHOLESTEROL INTERPRETATION: Less than 200 mg/dL Desireable 200-239 mg/dL Borderline Greater or Equal to 240 mg/dL High LDL Calculated 80 0 - 100 mg/dL [facility] Comment: LDL CHOLESTEROL INTERPRETATION: Less than 100 mg/dL Optimal 100-129 mg/dL Near optimal/above optimal 130-159 mg/dL Borderline High 160-189 mg/dL High Greater or Equal to 190 mg/dL Very High HDL 44 40 - 180 mg/dL [facility] Comment: HDL CHOLESTEROL INTERPRETATION: Less than 40 mg/dL Low Greater than 60 mg/dL Desirable Triglycerides 120 0 - 149 mg/dL [facility] Comment: TOTAL TRIGLYCERIDE INTERPRETATION: Less than 150 mg/dL Normal 150-199 mg/dL Borderline HIgh 200-499 mg/dL High Greater or Equal to 500 mg/dL Very High NONHDL Calculated 104 0 - 129 mg/dL [facility] Comment: NON-HDL INTERPRETATION: Less than 130 mg/dL Desirable 130-159 mg/dL Above Desirable 160-189 mg/dL Borderline High 190-219 mg/dL High Greater than or equal to 220 mg/dL Very High Serum (Serum) 05/07/2023 8:4 5 AM EST 05/07/2023 4:43 PM EST Dhaval Acuña DO CHEMISTRY ORDERABLES Final Re sult Performing Organization Address [facility] [address]/[facility] Co de Phone Number [facility] [address] * (ABNORMAL) COMPREHENSIVE METABOLIC PANEL (05/07/2023 8:45 AM EST) Sodium 140 135 - 146 mmol/L [facility] Potassium 4.5 3.5 - 5.1 mmol/L [facility] Chloride 105 98 - 110 mmol/L [facility] CO2 24 22 - 29 mmol/L [facility] Anion Gap 11 5 - 13 mmol/L [facility] Comment:Anion gap calculatio n [...] Acuña DO CHEMISTRY ORDERABLES Final Re sult [facility] [address] [place] [address], [facility] from Last 3 Months or Most Recently Relevant to Health Maintenance Insurance [address] [address] CHERI Care Teams Maintenance Technician Relationship Specialty Start Date End Date Albert Rosado MD [address] [place] [address] [place] [address] PCP - General 08/17/08 Dhaval Acuña, [address] [place] [address] Endocrinology/Diabetes/[place] bolism 06/05/21
--- OUTSIDE RECORDS SUMMARY | 2025-05-05 12:39 | XMS_ITS | Clinical Summary ---
Author Organization [facility] Address [address] [place] [address] Phone Care Team Providers Care Job Captain Name Role Phone Unavailable Unavailable Conditions or Problems No information available. Medications No information available. Medications Administered No information available. Allergies, Adverse Reactions, Alerts No information available. Results No information available. Plan of Care No information available. Procedures No information available. Vital Signs No information available. Immunizations No information available. Advance Directives No information available.
--- OUTSIDE RECORDS SUMMARY | 2025-05-05 12:40 | XMS_ITS | Encounter Summary ---
Author Organization [facility] Address [address] [place] [address] Care Team Providers Care Morgue Attendant Name Role Phone Albert Rosado MD Primary Care Provider [phone] Dhaval Acuña DO Unavailable [phone] Reason for Visit * Reason Onset Date Comments Other 08/16/2023 Encounter Details Date Type Department Care Team (Late st Contact Info) Description 08/16/2023 Telephone [facility] - Diabetes & Endocrine Center, [place] [address] [place] [address] Dhaval Acuña, DO [address] [facility] [place] [address] Other Social History Tobacco Use Types Packs/Day [...] Description 06/01/2025 3:15 PM EST Appointment [facility] Diabetes [facility] Endocrine [facility], [place] [address] [facility] [address] [place] [address] Dhaval Acuña, 1954 [facility] [address] [place] [address] documented as of this encounter Visit Diagnoses Not on filedocumented in this encounter Care Teams Morgue Attendant Relationship Specialty Start Date End Date Albert Rosado MD [address] [facility] [address] [place] [address] PCP - General 08/17/08 Dhaval Acuña, 1954 [facility] [address] [place] [address] Endocrinology/Diabetes/[place] bolism 06/05/21 documented as of this encounter
--- OUTSIDE RECORDS SUMMARY | 2025-05-05 12:40 | XMS_ITS | Encounter Summary ---
Author Organization [facility] Address [address] [place], [place] [address] Care Team Providers Care Mine Geologist Name Role Phone Albert Rosado MD Primary Care Provider [phone] Dhaval Acuña DO Unavailable [phone] Reason for Visit * Reason Onset Date Comments Other 04/01/2025 Encounter Details Date Type Department Care Team (Late st Contact Info) Description 04/01/2025 Telephone [facility] Diabetes & Endocrine Center, [address] [place] [address] Dhaval Acuña, DO [address] [facility] [address] [place] [address] Other Social History Tobacco Use Types Packs/Day [...] Called and got all the labs from [facility] documented in this encounter Plan of Treatment Upcoming Encounters Date Type Department Care Team (Late st Contact Info) Description 06/01/2025 3:15 PM EST Appointment [facility] Diabetes & Endocrine Center, [place] [address] [facility] [address] [place] [address] Dhaval Acuña DO 1954 [facility]. [address] [facility] [place] [address] documented as of this encounter Visit Diagnoses Not on filedocumented in this encounter Care Teams Mine Geologist Relationship Specialty Start Date End Date Albert Rosado MD [address] [place] [address] [place] [id number] PCP - General 08/17/08 Dhaval Acuña DO [address] [facility] [place] [id number] Endocrinology/Diabetes/[place] bolism 06/05/21 documented as of this encounter
--- OUTSIDE RECORDS SUMMARY | 2025-05-05 12:40 | XMS_ITS | Encounter Summary ---
Author Organization [facility] Address [address] [place] [address] Care Team Providers Care Labor Law Professor Name Role Phone Albert Rosado MD Primary Care Provider [phone] Dhaval Acuña DO Unavailable [phone] Reason for Visit * Reason Onset Date Comments Results 03/26/2025 Encounter Details Date Type Department Care Team (Late st Contact Info) Description 03/26/2025 Telephone [facility] - Diabetes [facility] Endocrine Center, [address] [place] [address] Dhaval Acuña, DO [address] [facility]. [address] [place] [address] Results Social History Tobacco Use Types Packs/Day [...] 9:43 AM EDT RECEIVED LAB RESULTS FROM [facility] VIA FAX IMPORTED AND ATTACHED * Telephone Encounter - Letitia Mcdonnell MA - 03/31/2025 7:12 AM EDT Called [facility] asked them to please send all results * Telephone Encounter - Vanita Urban - 03/30/2025 4:37 PM EDT RECEIVED LAB RESULTS FROM [facility] VIA FAX IMPORTED AND ATTACHED * Telephone Encounter - Dhaval Acuña DO - 03/29/2025 9:22 AM EDT Looks like only one lab of several I ordered. They will prob keep sending more, or can contact themto get them all at once. * Telephone Encounter - Vanita Urban - 03/29/2025 7:51 AM EDT RECEIVED LAB RESULTS FROM [facility] VIA FAX IMPORTED AND ATTACHED * Telephone Encounter - Kellen Zamora MA - 03/26/2025 2:39 PM EDT Non urgent * Telephone Encounter - Vanita Urban - 03/26/2025 2:04 PM EDT RECEIVED LAB RESULTS FROM [facility] VIA FAX IMPORTED AND ATTACHED documented in this encounter Plan of Treatment Upcoming Encounters Date Type Department Care Team (Late st Contact Info) Description 06/01/2025 3:15 PM EST Appointment [facility] Diabetes & Endocrine Center, [place] 1954 [facility] [address] [place] [address] Dhaval Acuña, 1954 [facility] [address] [place] [address] documented as of this encounter Visit Diagnoses Not on filedocumented in this encounter Care Teams Labor Law Professor Relationship Specialty Start Date End Date Albert Rosado MD [address] [facility] [address] [place], [place] [id number] PCP - General 08/17/08 Dhaval Acuña, 1954 [facility] [address] [place], [place] [id number] Endocrinology/Diabetes/[place] bolism 06/05/21 documented as of this encounter
--- OUTSIDE RECORDS SUMMARY | 2025-05-05 12:40 | XMS_ITS | Encounter Summary ---
Author Organization [facility] Address [address] [place] [address] Care Team Providers Care Hospital Food Service Worker Name Role Phone Israel Rosado MD Primary Care Provider Reason for Visit * Reason Onset Date Comments Other 04/30/2025 Encounter Details Date Type Department Care Team (Late st Contact Info) Description 04/30/2025 [place] [address] Arnav Murcia MD [address] [place] [address] Other Social History Tobacco Use Types Packs/Day [...] encounter Miscellaneous Notes * Telephone Encounter - Melisa Conklin MA - 04/30/2025 11:26 AM EST Called and let the patient know that our office is not the one who called her. I advised her it could have been from another department or [facility] but our office did not reach out. Patient agreed and understood and has no further questions at this time. * Telephone Encounter - Roxy Moulton Clerical Staff - 04/30/2025 11:02 AM EST Pt returned call, she just missed a call and thought it would be from Dr. Siddiqi team. documented in this encounter Plan of Treatment Upcoming Encounters Date Type Department Care Team (Latest Contact Info) Description 05/12/2025 11:15 [place] [address] Arnav Murcia MD [address] [place] [address] 05/17/2025 12:30 PM EST Hospital Encounter [facility] [address] [place] [phone] Arnav Murcia MD [address] [place] [address] 05/17/2025 12:30 PM EST Anesthesia Event [facility] [address] [place] [id number] Jeancarlos Burkett APRN 1 [facility] [place] [address] 05/17/2025 12:30 PM EST - 05/17/2025 2:40 PM EST Surgery [facility] [address] [place] [address] Arnav Murcia MD [address] [place] [address] ARTHROPLASTY, KNEE, TOTAL, [id number] 06/02/2025 10:30 AM EST Office Visit [address] [address] Lloyd Gil PA-C [address] [place] [address] 06/29/2025 10:30 AM EST Office Visit [facility] [address] [place] [address] Gigi Dee, PLASTIC MOLDER [address] [place] [address] 08/17/2025 9:45 AM EST Office Visit [facility] [address] [place] [address] Gigi Dee, PLASTIC MOLDER [address] [place] [address] Scheduled Procedures Name Priority Associated Diagnoses Date/Ti me ARTHROPLASTY, KNEE, TOTAL, [id number] Primary osteoarthritis of right knee 05/17/2025 12:30 PM EST documented as of this encounter Goals Goal Patient Goal Type Associated Problems Recent Progress Patient-Stated? Author Autogenera thomas Goal Care Plan Autogenerated Problem No Denise Herring, Clerical Staff documented as of this encounter Visit Diagnoses Not on filedocumented in this encounter Additional Health Concerns Active Problems Noted Date Diagnosed Date Autogenerated Problem 04/01/2025 documented as of this encounter Care Teams Hospital Food Service Worker Relationship Specialty Start Date End Date Israel Rosado MD [address] [facility] [address] [place] [address] PCP - General 02/14/11 documented as of this encounter
--- OUTSIDE RECORDS SUMMARY | 2025-05-05 12:40 | XMS_ITS | Clinical Summary ---
Author Organization [facility] Address [address] [place] [address] Care Team Providers Care Fruit Dryer Name Role Phone Albert Rosado MD Primary Care Provider [phone] Social History Tobacco Use Types Packs/Day Years [...] ( season) 2025 Insurance EMPLOYEE Care Teams Fruit Dryer Relationship Specialty Start Date End Date Albert Rosado MD [address] [facility] [address] [place] [address] PCP - General 07/28/15
--- OUTSIDE RECORDS SUMMARY | 2025-05-05 12:40 | XMS_ITS | Encounter Summary ---
Author Organization [facility] Address [address] [place] [address] Care Team Providers Care Cage Maker Name Role Phone Israel Rosado MD Primary Care Provider [phone] Encounter Details Date Type Department Care Team (Late st Contact Info) Description 04/01/2025 Orders Only [facility] [address] [place] [address] Tori Maya, Clerical Staff Primary osteoarthritis of [...] EST Office Visit [facility] [address] [place] [address] Arnav Murcia MD [address] [place] [address] 05/17/2025 12:30 PM EST Hospital Encounter [facility] [address] [place] [address] Arnav Murcia MD [address] [place] [address] 05/17/2025 12:30 PM EST Anesthesia Event [facility] [address] [place] [address] Jeancarlos Burkett APRN [address] [facility] [place] [address] 05/17/2025 12:30 PM EST - 05/17/2025 2:40 PM EST Surgery [facility] [address] [place] [id number] Arnav Murcia MD [address] [place] [address] ARTHROPLASTY, KNEE, TOTAL, [id number] 06/02/2025 10:30 AM EST Office Visit [facility] [address] [place] [address] Lloyd Gil PA-C [address] [place] [address] 06/29/2025 10:30 AM EST Office Visit [facility] [address] [address] Gigi Dee APRN [address] [place] [address] 08/17/2025 9:45 AM EST Office Visit [facility] [address] [phone] Gigi Dee APRN [address] [place] [address] Scheduled Orders Name Type Priority Associated Diagnoses Orde r Schedule SURGICAL/PROCEDURE CASE REQUEST - [facility] Procedures Routine Primary osteoarthritis of right knee Ordered: 04/01/2025 Scheduled Procedures Name Priority Associated Diagnoses Date/Ti nh ARTHROPLASTY, KNEE, TOTAL, [id number] Primary osteoarthritis of right knee 05/17/2025 12:30 PM EST documented as of this encounter Goals Goal Patient Goal Type Associated Problems Recent Progress Patient-Stated? Author Martin guzman Goal Care Plan Autogenerated Problem No Denise [...] documented as of this encounter Care Teams Cage Maker Relationship Specialty Start Date End Date Israel Rosado MD [address] [facility] [address] [place] [address] PCP - General 02/14/11 documented as of this encounter
--- OUTSIDE RECORDS SUMMARY | 2025-05-05 12:40 | XMS_ITS | Encounter Summary ---
Author Organization [facility] [place] [address] Care Team Providers Care Hydroblaster Name Role Phone Israel Rosado MD Primary Care Provider Encounter Details Date Type Department Care Team (Latest Contact Info) Description 05/03/2025 Travel Social History Tobacco Use Types Packs/Day Years [...] Description 05/12/2025 11:15 AM EST Office Visit [address] [address] Arnav Murcia MD [address] [place] [address] 05/17/2025 12:30 PM EST Hospital Encounter [facility] [address] [place] [address] Arnav Murcia MD [address] [place] [address] 05/17/2025 12:30 PM EST Anesthesia Event [facility] [address] [place] [address] Jeancarlos Burkett APRN [address] [facility] [place] [address] 05/17/2025 12:30 PM EST - 05/17/2025 2:40 PM EST Surgery [facility] [address] [place] [address] Arnav Murcia MD [address] [place] [address] ARTHROPLASTY, KNEE, TOTAL, [id number] 06/02/2025 10:30 AM EST Office Visit [facility] [address] [place] [address] Lloyd Gil PA-C [address] [address] 06/29/2025 10:30 AM EST Office Visit [facility] [address] [address] Gigi Dee APRN [address] [place] [address] 08/17/2025 9:45 AM EST Office Visit [facility] [address] [id number] Gigi Dee APRN [address] [place] [address] Scheduled Procedures Name Priority Associated Diagnoses Date/Ti mn ARTHROPLASTY, KNEE, TOTAL, [id number] Primary osteoarthritis of right knee 05/17/2025 12:30 [...] documented as of this encounter Care Teams Hydroblaster Relationship Specialty Start Date End Date Israel Rosado MD [address] [facility] [address] [place] [address] PCP - General 02/14/11 documented as of this encounter
--- OUTSIDE RECORDS SUMMARY | 2025-05-05 12:40 | XMS_ITS | Clinical Summary ---
Author Organization [facility] Address [facility] [place] [address] Care Team Providers Care Multimedia Manager Name Role Phone Albert Rosado MD Primary Care Provider [phone] Source Comments This information has been disclosed [...] therelease of HIV test results or diagnoses. [id number] Active Problems Problem Noted Date Diagnosed [...] of Treatment Not on file Care Teams Multimedia Manager Relationship Specialty Start Date End Date Albert Rosado MD [address] [facility] [address] [place] [address] PCP - General 08/26/07
--- OUTSIDE RECORDS SUMMARY | 2025-05-05 12:40 | XMS_ITS | Clinical Summary ---
Author Organization [facility] Address [address] [place] [address] Phone Care Team Providers Care Sheet Pile Hammer Operator Name Role Phone Israel Rosado MD Primary Care Provider [phone] Allergies No known active allergies Medications omeprazole (PRILOSEC) 20 mg Take 20 mg by mouth daily. Active rosuvastatin (CRESTOR) 10 mg tablet Take 10 mg by mouth daily. Active cycloSPORINE (RESTASIS) 0.05 % ophthalmic emulsion Place into both eyes every 12 hours. Active fish oil omega-3 fatty acids 300-1,000 mg Oral Capsule Take 2 g by mouth daily. Active DULoxetine (CYMBALTA) 30 mg Oral Capsule, Delayed Release(E.C.) Take 30 mg by mouth daily. Active MULTI-VITAMIN ORAL Take [...] Take by mouth 2 times daily. Active hyoscyamine (LEVBID) 0.375 mg Oral Tablet Sustained Release 12 hr Take 0.375 mg by mouth every 12 hours as needed for Cramping. Active pravastatin (PRAVACHOL) 20 mg Oral Tablet Take 20 mg by mouth daily. Active lisinopriL (PRINIVIL;ZEST RIL) 10 mg Oral Tablet Take 10 mg by mouth daily. Active semaglutide (OZEMPIC) 0.25 mg or 0.5 mg(2 mg/1.5 mL) SubQ Pen Injector Subcutaneous (Inject under the skin) 0.5 mg once a week. Active valsartan (DIOVAN) 40 mg Oral Tablet Take 40 mg by mouth daily. Active doxycycline hyclate (VIBRA-TABS) 100 mg Oral Tablet Take 100 mg by mouth 2 times daily. 04/27/20 25 Active aspirin 81 mg Oral Tablet, Chewable Take 81 mg by mouth daily. Active calcium carbonate-lainey min D 500 mg-5 mcg (200 unit) Oral Tablet Take 1 Tablet by mouth daily. 600 mg calcium,vitamin d 1000units Active DEXCOM G7 SENSOR [facility] Device USE DIRECTED TO CHECK BLOOD GLUCOSE CONTINUOUSLY. CHANGE EVERY 10 DAYS. Active Blood-Glucose Meter,Continuo us (DEXCOM G7 REHABILITATION SERVICES DIRECTOR) [facility] 04/01/20 24 Active hydroCHLOROthi azide (MICROZIDE) 12.5 mg Oral Capsule Take 12.5 mg by mouth daily. Active XIIDRA 5 % Opht Dropperette INSTILL 1 DROP INTO AFFECTED EYE(S) BY OPHTHALMIC ROUTE TWICE PER DAY Active cholecalcifero l, vitamin D3, 400 unit Oral Tablet Take 1 Tab by mouth daily. 025 Discontinued( Removed During Admission Medication Review) losartan-hydro chlorothiazide (HYZAAR) 100-12.5 mg Oral Tablet Take 1 Tab by mouth daily. 025 Discontinued( Removed During Admission Medication Review) glimepiride (AMARYL) 2 mg Oral Tablet Take 2 mg by mouth daily. 025 Discontinued( Removed During Admission Medication Review) fUROsemide (LASIX) 20 mg Oral Tablet Take by mouth every 12 hours. 025 Discontinued( Removed During Admission Medication Review) ciprofloxacin HCl (CIPRO) 500 mg Oral Tablet Take by mouth every 12 hours. 025 Discontinued( Removed During Admission Medication Review) Active Problems Problem Noted Date Diagnosed Date Primary osteoarthritis of right knee 03/31/2025 Primary osteoarthritis of left knee 03/31/2025 Pre-op testing 03/31/2025 Pain in both knees 09/18/2024 Incisional hernia, without obstruction or gangre ne 01/24/2018 Encounters Date Type Department Care Team Description 05/03/2025 9:41 AM EST - 05/03/2025 11:59 PM [facility] Hospital Encounter [facility] PRE-ADMIT TESTING [facility] [place] [address] Hypertension, unspecified type (Primary Dx); Preop testing; Pre-op testing; History of familial combined hyperlipidemia Discharge Disposition: Home or Self Care 05/03/2025 Travel 04/30/2025 [place] [address] Arnav Murcia MD Other 04/27/2025 9:39 AM EST - 04/27/2025 11:59 PM [facility] Hospital Encounter [place] [address] [facility] [address] [place] [address] Lloyd Gil PA-C Primary osteoarthritis of right knee; Primary osteoarthritis of left knee Discharge Disposition: Home or Self Care 04/01/2025 Orders Only [facility] [address] [address] Tori Maya, Clerical Staff Primary osteoarthritis of right knee (Primary Dx) 03/31/2025 8:00 [place] [address] Lloyd Gil PA-C Primary osteoarthritis of right [...] set a t 13 Diabetes mellitus (HCC) type 2 Urinary incontinence yoni Cancer (HCC) endometrial. sta ge 1- hysterectomy Family History Medical History Relation Name Comments Diabetes Father Other Mother Anesth Problems Neg Hx Relation Name Status Comments Father Mother Social [...] Mass Index 43.43 05/03/2025 9:51 AM EST Plan of Treatment Upcoming Encounters Date Type Department Care Team (Latest Contact Info) Description 05/12/2025 11:15 AM EST Office Visit [address] [address] Arnav Murcia MD [address] [place] [address] 05/17/2025 12:30 PM EST Hospital Encounter [facility] [address] [place] [address] Arnav Murcia MD [address] [place] [phone] 05/17/2025 12:30 PM EST Anesthesia Event [facility] [address] [place] [address] Jeancarlos Burkett APRN [address] [facility] [address] [place] [address] 05/17/2025 12:30 PM EST - 05/17/2025 2:40 PM EST Surgery [facility] [address] [place] [facility] Arnav Murcia MD [address] [place] [phone] ARTHROPLASTY, KNEE, TOTAL, [id number] 06/02/2025 10:30 AM EST Office Visit [facility] [address] [place] [address] Lloyd Gil PA-C [address] [place] [address] 06/29/2025 10:30 AM EST Office Visit [address] [address] Gigi Dee APRN [address] [place] [address] 08/17/2025 9:45 AM EST Office Visit [address] [address] Gigi Dee APRN [address] [place] [address] Scheduled Procedures Name Priority Associated Diagnoses Date/Ti pr ARTHROPLASTY, KNEE, TOTAL, [id number] Primary osteoarthritis of right knee 05/17/2025 12:30 [...] Clerical Staff Medical Devices Implanted Type Area Sales And Customer Relations Rep Device Identifier Shelf Expiration Date Model / Serial / Lot Bilateral Lens Mesh Srg Prln 6x4in Hrn Ptch Sft Flt Strl Pp - [id number] Implanted:Qty: 1 on 01/23/2018 by Zhen Strickland MD at [facility] N/A: Abdomen CR BARD:DAVOL 04/20/2022 [id number] / / [id number] Procedures Procedure Name Priority Date/Time Associated Diagnosis Comments PT / INR Routine 05/03/2025 11:07 AM EST Pre-op testing History of familial combined hyperlipidemia HEMOGLOBIN A1C Routine 05/03/2025 11:07 AM EST Pre-op testing History of familial combined hyperlipidemia COMPREHENSIVE METABOLIC PANEL Routine 05/03/2025 11:07 AM EST Pre-op testing CBC WITH DIFF Routine 05/03/2025 11:07 AM EST Pre-op testing CT LOWER EXTREMITY RIGHT WO CONTRAST Routine 04/27/2025 10:12 AM EST Primary osteoarthritis of right knee Primary osteoarthritis of left knee from Last 3 Months Results * PT / INR (05/03/2025 11:07 AM EST) PT 10.5 10.5 - 13.6 second(s) 05/03/2025 11:36 AM EST [employer] INR 0.91 0.91 - 1.18 (ratio) 05/03/2025 11:36 AM EST [employer] Comment: Level of Therapy Indications Target INR Range Standard Dose Treatment and prophylaxis of venous 2.0 - 3.0 thrombosis, pulmonary embolism High Dose High risk patients with mechanical 2.5 - 3.5 heart valves Blood VENOUS BLOOD / Unknown Venipuncture / Unknown 05/03/2025 11:07 AM EST 05/03/2025 11:12 AM EST Lloyd Gil PA-C HEMATOLOGY ORDERABLES Final Result [employer] [address] [facility] , [place] [address] * (ABNORMAL) CBC WITH DIFF (05/03/2025 11:07 AM EST) WBC 12.6(H) 3.7 - 10.3 x10(3)/mcL 05/03/2025 11:44 AM EST [employer] RBC 5.24(H) 3.90 - 5.20 x10(6)/mcL 05/03/2025 11:44 AM EST [employer] Hgb 14.1 11.2 - 15.7 g/dL 05/03/2025 [...] 11:44 AM EST [facility] Duval Percent 5.9 % 05/03/2025 11:44 AM EST [facility] Eos Percent 2.4 % 05/03/2025 11:44 AM EST [facility] Baso Percent 0.6 % 05/03/2025 11:44 AM EST [facility] Neut # 8.4(H) 1.6 - 6.1 x10(3)/mcL 05/03/2025 11:44 AM EST [facility] Comment:Neutrophils equals s egs plus bands IMMGRAN# 0.1 0.0 - 0.1 x10(3)/mcL 05/03/2025 11:44 AM EST [facility] Comment:Automated count of m etamyelocytes, myelocytes and promyelocytes. An absolute IG <0.1 is reported as 0.0. Lymph # 3.1 1.2 - 3.9 x10(3)/mcL 05/03/2025 11:44 AM EST [facility] [place] # 0.8 0.3 - 0.9 x10(3)/mcL 05/03/2025 11:44 AM EST [facility] Eos# 0.3 0.0 - 0.5 x10(3)/mcL 05/03/2025 11:44 AM EST [facility] Baso # 0.1 0.0 - 0.1 x10(3)/mcL 05/03/2025 11:44 AM EST [facility] Blood VENOUS BLOOD / Unknown Venipuncture / Unknown 05/03/2025 11:07 AM EST 05/03/2025 11:12 AM EST Lloyd Gil PA-C HEMATOLOGY ORDERABLES Final Result [facility] [address] [facility] , [place] [address] * (ABNORMAL) HEMOGLOBIN A1C (05/03/2025 11:07 AM EST) Hgb A1C 6.4(H) 4.2 - 5.6 % 05/03/2025 1:35 PM EST [facility] Est. Avg Glucose 137 mg/dL 05/03/2025 1:35 PM EST [facility] Blood VENOUS BLOOD / Unknown Venipuncture / Unknown 05/03/2025 11:07 AM EST 05/03/2025 11:12 AM EST Narrative [facility] - 05/03/2025 1:35 PM EST REFERENCE [...] Result [facility] [address] [facility] [facility] , [place] [address] * (ABNORMAL) COMPREHENSIVE METABOLIC PANEL (05/03/2025 11:07 [...] 3 m2 05/03/2025 12:07 PM EST [facility] Comment:Estimated GFR was ca lculated using the CKD-EPIcr (2020) equation refit without race. The equation is recommended by the National Kidney Foundation - [place] [employer] of Nephrology Task Force. Blood VENOUS BLOOD / Unknown Venipuncture / Unknown 05/03/2025 11:07 AM EST 05/03/2025 11:12 AM EST Lloyd Gil PA-C CHEMISTRY ORDERABLES Final Result [facility] [address] [facility] , [place] [address] * CT LOWER EXTREMITY RIGHT WO CONTRAST [...] AM CLINICAL HISTORY: M17.11-Unilateral primary osteoarthritis, right [id number]-84-CM M17.12-Unilateral primary osteoarthritis, left [id number]-KMC-78-CM COMPARISON: None. PROCEDURE COMMENTS: Multidetector CT with [...] AM CLINICAL HISTORY: M17.11-Unilateral primary osteoarthritis, right [id number]-PWF-39-CM M17.12-Unilateral primary osteoarthritis, left qrrl-NEP-64-CM COMPARISON: None. PROCEDURE COMMENTS: Multidetector CT with [...] PA-C [facility] CT ORDERABLES Final Res ult from Last 3 Months Additional Health Concerns Active Problems Noted Date Diagnosed Date Autogenerated Problem 04/01/2025 Insurance [employer] MEDICARE PPO MR [employer] MED[employer] PPO MR Advance Directives For more information, please contact: [phone] * Full Code (Latest Code Status on File) Date Activated Date Inactivated Comments 01/25/2018 2:27 PM 01/27/2018 3:56 PM Care Teams Sheet Pile Hammer Operator Relationship Specialty Start Date End Date Israel Rosado MD [address] [place] [id number] PCP - General 02/14/11
--- OUTSIDE RECORDS SUMMARY | 2025-05-05 12:40 | XMS_ITS | Encounter Summary ---
Author Organization [facility] Address [address] [place], [place] [address] Care Team Providers Care Drying Rack Changer Name Role Phone Albert Rosado MD Primary Care Provider [phone] Dhaval Acuña DO Unavailable [phone] Encounter Details Date Type Department Care Team (Late st Contact Info) Description 04/01/2025 Abstract [facility] Diabetes & Endocrine [address] [place] [address] Dhaval Acuña, 1954 [facility] [address] [address] Social History Tobacco Use Types [...] Description 06/01/2025 3:15 PM EST Appointment [facility] Diabetes & Endocrine [address] [place] [address] Dhaval Acuña, 1954 [facility] [address] [place] [address] documented as of this encounter Visit Diagnoses Not on filedocumented in this encounter Care Teams Drying Rack Changer Relationship Specialty Start Date End Date Albert Rosado MD [address] [place] [address] PCP - General 08/17/08 Dhaval Acuña, [address] [place] [address] Endocrinology/Diabetes/[place] bolism 06/05/21 documented as of this encounter
--- NOTE | 2025-05-05 13:00 | US_ITS ---
FINAL REPORT CLINICAL HISTORY: left cervical LAD FINDINGS: Limited sonographic images of the neck were obtained. The submandibular glands are normal. The right parotid is normal. In the left parotid is a complex cystic mass in the region of the palpable abnormality with some debris measuring 19 x 8 x 8 mm. Small normal size lymph nodes are seen bilaterally. IMPRESSION: Complex cystic mass in the left parotid accounting for the palpable abnormality. Features strongly favor benign but recommend follow-up in 6 months. Reviewed, Interpreted and Dictated by Jane Marks MD Transcribed by Malu Augustin Authenticated and [facility]
== END 2025-05-05 23:59 | disposition home or self-care (01) ==
LOC: RAD 12:35
PROVIDERS: PCP Nurse Practitioner; Visit Provider Nurse Practitioner
DX: K11.8 Other diseases of salivary glands (principal); R59.0 Localized enlarged lymph nodes
CPT/HCPCS: 76536